=== PATIENT | male | born 1955 | race Caucasian/White ===

== ENCOUNTER 2018-07-30 19:49 | Emergency (ER) | payer SELFPAY ==
[~2018-07-30] VITALS: Ht 180.3 cm; Wt 77.1 kg
--- OUTSIDE RECORDS SUMMARY | 2018-07-30 19:52 | XMS REPORT | Continuity of Care Document ---
Author Author [facility] Organization Interface Address Unknown Phone Unavailable Problems Problem Status Onset Date Classification Date Reported Comments Source SWOLLEN LEGS Active 10/12/2017 [facility] BILATERAL LOWER LEG CELLULITIS, JG, HYP Active 10/12/2017 [facility] Sacral contusion 09/11/2017 09/14/2017 [place] [facility] Active 09/11/2017 [facility] Cellulitis of left lower limb 10/21/2017 [facility]pertension Resolved Problem [facility]21[facility] [facility] Kid[facility] stones Resolved Problem 10/21/[address] [facility] CELLULITIS OF LEFT LOWER LIMB Active [facility] ACUTE KIDNEY FAILURE, UNSPECIFIED Active [facility] HYPERGLYCEMIA, UNSPECIFIED Active [facility] Medications Medication Details Route Status Patient Instructions Ordering Provider Order Date Source Metronidazole 500 MG Oral Tablet [Flagyl] 500 mg=1 tab, PO, BID, X 10 day, # 20 tab, 0 Refill(s), Pharmacy: [id number] Active 10/18/2017 [facility] Ciprofloxacin 500 MG Oral Tablet [Cipro] 500 mg=1 tab, PO, Q24H, X 10 day, # 10 tab, 0 Refill(s), Pharmacy: [id number] Active 10/18/2017 [facility] Amlodipine 5 mg, 1 tab, Route: PO, Drug form: TAB, ONCE, Dosing Weight 84.091, kg, Priority: NOW, Start date: 10/18/17 14:40:00 CDT, Stop date: 10/18/17 14:40:00 CDTNotes: (Same as: Ama) Inactive 10/18/2017 [facility] Mupirocin 0.02 MG/MG Topical Ointment [Bactroban] 1 appl, Route: TOP, Daily, Drug form: OINT, Start date: 10/18/17 10:00:00 CDT, Duration: 30 day, Stop date: 11/17/17 9:00:00 CDT Inactive 10/18/2017 [facility] Flagyl 500 mg, 100 mL, Route: IVPB, Drug form: INJ, [id number], Dosing Weight 84.091, kg, Start date: 10/17/17 18:00:00 CDT, Duration: 10 day, Stop date: 10/27/17 10:00:00 CDT, ABX Indication: Skin/Soft Tissue Inf ectionNotes: (Same as: Flagyl) Avoid alcohol. No Longer Active 10/17/2017 [facility] Vancomycin 1,000 mg, Route: IVPB, [id number], Dosing Weight 84.091, kg, Start date: 10/17/17 16:00:00 CDT, Duration: 7 day, Stop date: 10/23/17 16:00:00 CDT, ABX Indication: Skin/Soft Tissue InfectionNotes: TIME C RITICAL MEDICATION (Same As: Vancocin) Infusion rate 2001 mg: infuse over 2.5 hours For adult patients only: Round to nearest 250 mg per Medical Staff approval MEDICATION WASTE Product Size: 1000 mg Product Wasted: ___ mg Inactive 10/17/2017 [facility] Vancomycin 1 ea, Route: MISC, ONCALL, Dosing Weight 84.091, kg, Start date: 10/17/17 13:00:00 CDT, Duration: 7 day, Stop date: 10/24/17 12:59:00 CDT, Pharmacy to dose, ABX Indication: Skin/Soft Tissue Infection Inactive 10/17/2017 [facility] Insulin Lispro 2 unit, 0.02 mL, Route: SUB-Q, Drug form: SOLN, TID-Before Meals, Dosing Weight 84.091, kg, PRN Blood Glucose Results, Start date: 10/17/17 12:20:00 CDT, Duration: 30 day, Stop date: 11/16/17 12:19:0 0 CDTNotes: (Same as: Humalog ) Roll in palms of hands gently; Do not shake `vigorously. "Single Patient Use Only " WASTE: F/P - Black; E - Municipal Trash Bin Stable for 28 days at room temperature. Expires in days from Date No Longer Active 10/17/2017 [facility] Glucagon 1 mg, Route: IM, PRN, Dosing Weight 84.091, kg, PRN Blood Glucose Results, Start date: 10/17/17 12:20:00 CDT, Duration: 30 day, Stop date: 11/16/17 12:19:00 CDT Inactive 10/17/2017 [facility] Dextrose 50% Syringe 25 mL, Route: IVP, Dosing Weight 84.091, kg, PRN, PRN Blood Glucose Results, Start date: 10/17/17 12:20:00 CDT, Duration: 30 day, Stop date: 11/16/17 12:19:00 CDT Inactive 10/17/2017 [facility] Docusate 100 mg, 1 cap, Route: PO, Drug form: CAP, BID, Dosing Weight 84.091, kg, Start date: 10/17/17 9:00:00 CDT, Duration: 30 day, Stop date: 11/15/17 17:00:00 CDTNotes: (Same as: Colace) (Do Not Crush) No Longer Active 10/17/2017 [facility] Losartan 100 mg, 2 tab, Route: PO, Drug form: TAB, Daily, Dosing Weight 84.091, kg, Start date: 10/17/17 9:00:00 CDT, Duration: 30 day, Stop date: 11/15/17 9:00:00 CDTNotes: (Same as: Cozaar) No Longer Active 10/17/2017 [facility] Amlodipine 10 mg, 2 tab, Route: PO, Drug form: TAB, Daily, Dosing Weight 84.091, kg, Start date: 10/17/17 9:00:00 CDT, Stop date: 11/15/17 9:00:00 CDTNotes: (Same as: Norvasc) No Longer Active 10/17/2017 [facility] normal saline 0.9% IV 1,000 mL 1,000 mL, Rate: 100 ml/hr, Infuse over: 10 hr, Route: IV, Dosing Weight 84.091 kg, Total Volume: 1,000, Start date: 10/17/17 8:13:00 CDT, Duration: 30 day, Stop date: 11/16/17 8:12:00 CDT, 2.06, m2 Inactive 10/17/2017 [facility] Insulin Lispro 1 unit, 0.01 mL, Route: SUB-Q, Drug form: SOLN, Bedtime, Dosing Weight 84.091, kg, PRN Blood Glucose Results, Start date: 10/16/17 23:21:00 CDT, Duration: 30 day, Stop date: 11/15/17 23:20:00 CDTNotes: (Same as: Humalog ) Roll in palms of hands gently; Do not shake `vigorously. "Single Patient Use Only " WASTE: F/P - Black; E - Municipal Trash Bin Stable for 28 days at room temperature. Expires in days from Date No Longer Active 10/17/2017 [facility] Glucagon 1 mg, Route: IM, Drug form: PDR/INJ, PRN, Dosing Weight 84.091, kg, PRN Blood Glucose Results, Start date: 10/16/17 23:21:00 CDT, Duration: 30 day, Stop date: 11/15/17 23:20:00 CDT No Longer Active 10/17/2017 [facility] Dextrose 50% Syringe 12.5 gm, 25 mL, Route: IVP, Drug Form: INJ, Dosing Weight 84.091, kg, PRN, PRN Blood Glucose Results, Start date: 10/16/17 23:21:00 CDT, Duration: 30 day, Stop date: 11/15/17 23:20:00 CDT No Longer Active 10/17/2017 [facility] Vancomycin 1,000 mg, Route: IVPB, Drug form: INJ, [id number], Dosing Weight 84.091, kg, Start date: 10/16/17 21:00:00 CDT, Duration: 7 day, Stop date: 10/23/17 9:00:00 CDT, ABX Indication: Skin/Soft Tissue Infection Inactive 10/17/2017 [facility] insulin glargine 40 unit, 0.4 mL, Route: SUB-Q, Drug form: SOLN, Bedtime, Start date: 10/16/17 21:00:00 CDT, Duration: 30 day, Stop date: 11/14/17 21:00:00 CDTNotes: (Same as: Lantus) Do not hold insulin without cont acting prescriber WASTE: F/P - Black; E - Municipal Trash Bin "single patient use only" No Longer Active 10/17/2017 [facility] cefepime 1 gm, Route: IVPB, [id number], Dosing Weight 84.091, kg, (CrCl 30 - 49 ml/min), Start date: 10/16/17 21:00:00 CDT, Duration: 7 day, Stop date: 10/23/17 12:30:00 CDT, ABX Indication: Skin/Soft Tissue Infect ionNotes: (Same As: Maxipime) MEDICATION WASTE Product Size: 1000 mg Product Wasted: ___ mg No Longer Active 10/17/2017 [facility] 1.5 ML Insulin Glargine 300 UNT/ML Prefilled Syringe [Toujeo] 50 unit, Route: SUB-Q, Drug form: SOLN, Bedtime, Dosing Weight 84.091, kg, Start date: 10/16/17 21:00:00 CDT, Duration: 30 day, Stop date: 11/14/17 21:00:00 CDT Inactive 10/17/2017 [facility] atorvastatin 40 mg, 1 tab, Route: PO, Drug form: TAB, Bedtime, Dosing Weight 84.091, kg, Start date: 10/16/17 21:00:00 CDT, Duration: 30 day, Stop date: 11/14/17 21:00:00 CDTNotes: (Same as: Lipitor) No Longer Active 10/17/2017 [facility] Aspirin 81 mg, 1 tab, Route: PO, Drug form: ECTAB, Daily, Dosing Weight 84.091, kg, Start date: 10/16/17 21:00:00 CDT, Duration: 30 day, Stop date: 11/15/17 9:00:00 CDTNotes: Do not crush or chew. (Same As: Ecotrin) No Longer Active 10/17/2017 [facility] Amitriptyline 25 mg, 1 tab, Route: PO, Drug form: TAB, Bedtime, Dosing Weight 84.091, kg, Start date: 10/16/17 21:00:00 CDT, Duration: 30 day, Stop date: 11/14/17 21:00:00 CDTNotes: (Same as: Elavil) No Longer Active 10/17/2017 [facility] Ondansetron 4 mg, 2 mL, Route: IVP, Drug form: INJ, Q6H, Dosing Weight 84.091, kg, PRN Nausea & Vomiting, Start date: 10/16/17 20:34:00 CDT, Duration: 30 day, Stop date: 11/15/17 20:33:00 CDTNotes: (Same as: Zofran) MEDICATION WASTE Product Size: 4 mg Product Wasted: ___ mg No Longer Active 10/17/2017 [facility] Morphine 2 mg, 0.5 mL, Route: IVP, Drug form: SOLN, Q4H, Dosing Weight 84.091, kg, PRN Pain Score 7-10, Start date: 10/16/17 20:34:00 CDT, Duration: 30 day, Stop date: 11/15/17 20:33:00 CDTNotes: (Same as:MORPhine Sulfate) No Longer Active 10/17/2017 [facility] Acetaminophen 650 mg, 2 tab, Route: PO, Drug form: TAB, Q4H, Dosing Weight 84.091, kg, PRN Pain 1-3/Temp > 100.4 F, Start date: 10/16/17 20:34:00 CDT, Duration: 30 day, Stop date: 11/15/17 20:33:00 CDTNotes: Do not exceed 4 gm/day. (Same as: Tylenol) No Longer Active 10/17/2017 [facility] Acetaminophen 325 MG / Hydrocodone Bitartrate 5 MG Oral Tablet 2 tab, Route: PO, Drug Form: TAB, Dosing Weight 84.091, kg, Q4H, PRN Pain Score 7-10, Start date: 10/16/17 20:34:00 CDT, Duration: 30 day, Stop date: 11/15/17 20:33:00 CDTNotes: (Same as: Marshall 325/5) Do not exceed 4gm/day of acetaminophen. No Longer Active 10/17/2017 [facility] 1.5 ML Insulin Glargine 300 UNT/ML Prefilled Syringe [Toujeo] 50 unit, SUB-Q, Bedtime, 0 Refill(s) Active 10/17/2017 [facility] Aspirin 81 mg, PO, Daily, 0 Refill(s) Active 10/17/2017 [facility] Losartan 100 mg, PO, Daily, 0 Refill(s) Active 10/17/2017 [facility] Amlodipine PO, Daily, 0 Refill(s) Active 10/17/2017 [facility] atorvastatin 40 mg, PO, Bedtime, 0 Refill(s) Active 10/17/2017 [facility] NS (Bolus) IV 1,000 mL, 1,000 ml/hr, Infuse Over: 1 hr, Route: IV, 1,000, Drug form: INJ, ONCE, Priority: STAT, Dosing Weight 79.545 kg, Start date: 10/16/17 12:19:00 CDT, Stop date: 10/16/17 12:19:00 CDT Inactive 10/16/[address] [facility] Zosyn 3.375 gm, Route: IVPB, ONCE, Dosing Weight 79.545, kg, Priority: STAT, Start date: 10/16/17 12:19:00 CDT, Stop date: 10/16/17 12:19:00 CDT, ABX Indication: Skin/Soft Tissue InfectionNotes: (Same as: Zosyn) Dosing based on Piperacillin component MEDICATION WASTE Product Size: 3375 mg Product Wasted: ___ mg Inactive 10/16/[address] [facility] Vancomycin 1,500 mg, Route: IVPB, ONCE, Dosing Weight 79.545, kg, Priority: STAT, Start date: 10/16/17 12:18:00 CDT, Stop date: 10/16/17 12:18:00 CDT, ABX Indication: Skin/Soft Tissue InfectionNotes: TIME CRITICAL MEDICATION (Same As: Vancocin) Infusion rate 2001 mg: infuse over 2.5 hours For adult patients only: Round to nearest 250 mg per Medical Staff approval MEDICATION WASTE Product Size: 1000 mg Product Wasted: ___ mg Inactive 10/16/[address] [facility] Clindamycin 600 mg, Route: IV, ONCE, Dosing Weight 79.545, kg, Priority: STAT, Start date: 10/16/17 10:28:00 CDT, Stop date: 10/16/17 10:28:00 CDT, ABX Indication: Skin/Soft Tissue Infection Inactive 10/16/[address] [facility] tramadol hydrochloride 50 MG Oral Tablet 50 mg=1 tab, PO, Q6H, PRN Pain, X 3 day, # 12 tab, 0 Refill(s) Active 09/12/[address] [facility] Acetaminophen 325 MG / Hydrocodone Bitartrate 5 MG Oral Tablet 1 tab, Route: PO, Drug Form: TAB, Dosing Weight 79.091, kg, ONCE, STAT, Start date: 09/11/17 20:17:00 CDT, Stop date: 09/11/17 20:17:00 CDTNotes: (Same as: Marshall 325/5) Do not exceed 4gm/day of acetaminophen. Inactive 09/12/[address] [facility] Allergies, Adverse Reactions, Alerts Substance Category Reaction Severity Reaction type Status Date Reported Comments Source Immunizations Immunization Date Given Site Status Last Updated Comments Source pneumococcal 23-valent vaccine 10/18/2017 Not Given [facility] pneumococcal 23-valent vaccine 07/20/2012 Left deltoid completed [facility] Results Order Name Results Value Reference Range Date Interpretation Comments Source IMMUNOLOGY C4 Complement 26 mg/dL 16 - 47 10/18/2017 [facility] C3 Complement 107 mg/dL 88 - 201 10/18/2017 [facility] P-ANCA Negative (10/18/17 10:53 AM) Negative 10/18/2017 [facility] C-ANCA Negative (10/18/17 10:53 AM) Negative 10/18/2017 [facility] SIVA Negative (10/18/17 10:53 AM) Negative 10/18/2017 [facility] Gram Stain Report No Wbc'S; Few Gram Positive Cocci In Clusters 10/18/2017 [facility] Culture: Wound/Abscess w/Gram Stain Few Gram Negative Rods Identification And Sensitivity Pending 10/18/2017 [facility] CHEM PANEL Bili Total 0.5 mg/dL 0.2 - 1.3 10/18/2017 [facility] CHEM PANEL eGFR 29 mL/min/1.73m2 10/18/2017 Result Comment: The eGFR is calculated using the CKD-EPI formula. In most young, healthy individuals the eGFR will be >90 mL/min/1.73m2. The eGFR declines with age. An eGFR of 60-89 may be normal in some populations, particularly the elderly, for whom the CKD-EPI formula has not been extensively validated. Use of the eGFR is not recommended in the following populations: Individuals with unstable creatinine concentrations, including patients and those with serious co-morbid conditions. Patients with extremes in muscle mass or diet. The data above are obtained from the National Kidney Disease Education Program (NKDEP) which additionally recommends that when the eGFR is used in patients with extremes of body mass index for purposes of drug dosing, the eGFR should be multiplied by the estimated BMI. [facility] CHEM PANEL Sodium Lvl 146 meq/L 135 - 145 10/18/2017 [facility] CHEM PANEL Creatinine Lvl 2.33 mg/dL 0.50 - 1.40 10/18/2017 [facility] CHEM PANEL Potassium Lvl 3.7 meq/L 3.5 - 5.1 10/18/2017 [facility] CHEM PANEL BUN 29 mg/dL 7 - 22 10/18/2017 [facility] CHEM PANEL Glucose Lvl 74 mg/dL 70 - 99 10/18/2017 [facility] CHEM PANEL Globulin 4.1 g/dL 2.7 - 4.2 10/18/2017 [facility] CHEM PANEL Albumin Lvl 1.9 g/dL 3.5 - 5.0 10/18/2017 [facility] CHEM PANEL B/C Ratio 12 6 - 25 10/18/2017 [facility] CHEM PANEL Total Protein 6.0 g/dL 6.4 - 8.4 10/18/2017 [facility] CHEM PANEL AGAP 10.7 meq/L 10.0 - 20.0 10/18/2017 [facility] CHEM PANEL Calcium Lvl 8.5 mg/dL 8.5 - 10.5 10/18/2017 [facility] CHEM PANEL Chloride Lvl 116 meq/L 95 - 109 10/18/2017 [facility] CHEM PANEL CO2 23 meq/L 24 - 32 10/18/2017 [facility] CHEM PANEL A/G Ratio 0.5 0.7 - 1.6 10/18/2017 [facility] CHEM PANEL AST 22 unit/L 0 - 37 10/18/2017 [facility] CHEM PANEL Alk Phos 98 unit/L 39 - 136 10/18/2017 [facility] CHEM PANEL ALT 22 unit/L 0 - 65 10/18/2017 [facility] HEMATOLOGY Eosinophils 2.6 % 0.0 - 4.0 10/18/2017 [facility] HEMATOLOGY Monocytes 6.8 % 2.0 - 12.0 10/18/2017 [facility] HEMATOLOGY Segs-Bands # 6.1 K/CMM 1.5 - 8.1 10/18/2017 [facility] HEMATOLOGY Basophils 1.5 % 0.0 - 1.0 10/18/2017 [facility] HEMATOLOGY Lymphocytes # 3.0 K/CMM 1.0 - 5.5 10/18/2017 [facility] HEMATOLOGY Monocytes # 0.7 K/CMM 0.0 - 0.8 10/18/2017 [facility] HEMATOLOGY Basophils # 0.2 K/CMM 0.0 - 0.2 10/18/2017 [facility] HEMATOLOGY Eosinophils # 0.3 K/CMM 0.0 - 0.5 10/18/2017 [facility] HEMATOLOGY Lymphocytes 29.0 % 20.0 - 40.0 10/18/2017 [facility] Segs 60.1 % 45.0 - 75.0 10/18/2017 [facility] RBC 3.98 M/CMM 4.70 - 6.10 10/18/2017 [facility] WBC 10.2 K/CMM 3.7 - 10.4 10/18/2017 [facility] Hct 32.6 % 42.0 - 54.0 10/18/2017 [facility] Hgb 11.1 g/dL 14.0 - 18.0 10/18/2017 [facility] MCV 81.9 fL 80.0 - 94.0 10/18/2017 [facility] MCHC 34.1 g/dL 32.0 - 36.0 10/18/2017 [facility] MCH 27.9 pg 27.0 - 31.0 10/18/2017 [facility] Platelet 273 K/CMM 133 - 450 10/18/2017 [facility] RDW 13.6 % 11.5 - 14.5 10/18/2017 [facility] MPV 7.4 fL 7.4 - 10.4 10/18/2017 [facility] IMMUNOLOGY C-REACTIVE PROTEIN 7.2 mg/L <=2.9 mg/L 10/17/2017 [facility] TOXICOLOGY Vanco Lvl 13.0 ug/ml 10/17/2017 [facility] URINE AND STOOL UA Sq Epi Occasional /LPF Few /LPF 10/17/2017 [facility] URINE AND STOOL UA RBC 3 /HPF 0 - 2 10/17/2017 [facility] URINE AND STOOL UA WBC 2 /HPF 0 - 5 10/17/2017 [facility] URINE AND STOOL UA Nitrite Negative (10/17/17 1:15 PM) Negative 10/17/2017 [facility] URINE AND STOOL UA Urobilinogen 0.2 EU/dL 0.1 - 1.0 10/17/2017 [facility] URINE AND STOOL UA Ketones Negative *NA* (10/17/17 1:15 PM) Negative 10/17/2017 [facility] URINE AND STOOL UA Glucose >=1000 mg/dL Negative mg/dL 10/17/2017 [facility] URINE AND STOOL UA Leuk Est Negative (10/17/17 1:15 PM) Negative 10/17/2017 [facility] URINE AND STOOL UA Bili Negative *NA* (10/17/17 1:15 PM) Negative 10/17/2017 [facility] URINE AND STOOL UA Blood Moderate *ABN* (10/17/17 1:15 PM) Negative 10/17/2017 [facility] URINE AND STOOL UA Spec Grav 1.020 <=1.030 10/17/2017 [facility] URINE AND STOOL UA pH 7.0 5.0 - 8.0 10/17/2017 [facility] URINE AND STOOL UA Protein >=300 mg/dL Negative mg/dL 10/17/2017 [facility] URINE AND STOOL UA Turbidity Clear (10/17/17 1:15 PM) Clear 10/17/2017 [facility] URINE AND STOOL UA Color Yellow *NA* (10/17/17 1:15 PM) Yellow 10/17/2017 [facility] URINE CHEM U Sodium 91 meq/L 10/17/2017 [facility] URINE CHEM U Creatinine 42.10 mg/dL 10/17/2017 [facility] URINE CHEM U Alb/Crea 9738.7 mcg/mg creat <=30.0 mcg/mg creat 10/17/2017 [facility] URINE CHEM U Microalb 4100.0 mg/L 10/17/2017 [facility] Ext Lower Arterial Doppler bilat US Ext Lower Arterial Doppler bilat US Patient Name: RENE PALMA : 1955; Age: 62 years y/o Male MR: [id number] Study: Ext Lower Arterial Doppler bilat US 10/17/2017 10:35 AM CDT Ordering Physician: Cj Rosas MD Clinical Indication: - ? arterial wound, ? PVD; Comparison: None Bilateral lower extremity arterial Doppler ultrasound exam. Color-flow and grayscale ultrasound images were obtained. RIGHT: There is normal triphasic waveform, flow velocity and color flow seen within the common femoral, SFA and popliteal segments in the right lower extremity. Normal flow velocities and triphasic waveforms are also noted within the right dorsalis pedis. Monophasic waveforms are seen in the right posterior tibial artery. LEFT: Normal triphasic waveforms and flow velocities and color flow seen within the common femoral and SFA segments. Slightly blunted monophasic waveforms are seen in the distal SFA and popliteal segments, however. Severely blunted monophasic waveforms are seen in the left posterior tibial artery. Monophasic waveforms with normal flow velocities seen in the left dorsalis pedis artery. IMPRESSION: No high-grade femoral or popliteal stenosis seen within either lower extremity. There is however suggestion of distal (tibial) vascular disease, most prominent within the left lower extremity. Noninvasive ankle brachial index and segmental pressures may yield additional physiologic data. CTA or MRA could be most specific regarding site and degree of stenosis, otherwise. SL: [id number] 10/17/2017 - - Read by: Malik Donato MD Dictated Date/time: 10/18/17 08:17 Electronically Signed by: Malik Donato MD 10/18/17 08:23 FINAL REPORT [facility] CHEM PANEL eGFR 27 mL/min/1.73m2 10/17/2017 Result Comment: The eGFR is calculated using the CKD-EPI formula. In most young, healthy individuals the eGFR will be >90 mL/min/1.73m2. The eGFR declines with age. An eGFR of 60-89 may be normal in some populations, particularly the elderly, for whom the CKD-EPI formula has not been extensively validated. Use of the eGFR is not recommended in the following populations: Individuals with unstable creatinine concentrations, including patients and those with serious co-morbid conditions. Patients with extremes in muscle mass or diet. The data above are obtained from the National Kidney Disease Education Program (NKDEP) which additionally recommends that when the eGFR is used in patients with extremes of body mass index for purposes of drug dosing, the eGFR should be multiplied by the estimated BMI. [facility] CHEM PANEL Bili Total 0.3 mg/dL 0.2 - 1.3 10/17/2017 [facility] CHEM PANEL Chloride Lvl 116 meq/L 95 - 109 10/17/2017 [facility] CHEM PANEL CO2 23 meq/L 24 - 32 10/17/2017 [facility] CHEM PANEL AGAP 12.2 meq/L 10.0 - 20.0 10/17/2017 [facility] CHEM PANEL Calcium Lvl 8.4 mg/dL 8.5 - 10.5 10/17/2017 [facility] CHEM PANEL B/C Ratio 14 6 - 25 10/17/2017 [facility] CHEM PANEL Globulin 4.0 g/dL 2.7 - 4.2 10/17/2017 [facility] CHEM PANEL Total Protein 6.0 g/dL 6.4 - 8.4 10/17/2017 [facility] CHEM PANEL Albumin Lvl 2.0 g/dL 3.5 - 5.0 10/17/2017 [facility] CHEM PANEL A/G Ratio 0.5 0.7 - 1.6 10/17/2017 [facility] CHEM PANEL ALT 22 unit/L 0 - 65 10/17/2017 [facility] CHEM PANEL AST 22 unit/L 0 - 37 10/17/2017 [facility] CHEM PANEL Alk Phos 99 unit/L 39 - 136 10/17/2017 [facility] CHEM PANEL Glucose Lvl 139 mg/dL 70 - 99 10/17/2017 [facility] CHEM PANEL Creatinine Lvl 2.50 mg/dL 0.50 - 1.40 10/17/2017 [facility] CHEM PANEL BUN 34 mg/dL 7 - 22 10/17/2017 [facility] CHEM PANEL Sodium Lvl 147 meq/L 135 - 145 10/17/2017 [facility] CHEM PANEL Potassium Lvl 4.2 meq/L 3.5 - 5.1 10/17/2017 [facility] HEMATOLOGY PT 14.2 s 12.0 - 14.7 10/17/2017 [facility] HEMATOLOGY PTT 31.7 s 22.9 - 35.8 10/17/2017 [facility] HEMATOLOGY INR 1.10 0.85 - 1.17 10/17/2017 [facility] HEMATOLOGY MCHC 34.0 g/dL 32.0 - 36.0 10/17/2017 [facility] HEMATOLOGY RDW 14.0 % 11.5 - 14.5 10/17/2017 [facility] HEMATOLOGY MCH 27.8 pg 27.0 - 31.0 10/17/2017 [facility] HEMATOLOGY MCV 81.6 fL 80.0 - 94.0 10/17/2017 [facility] HEMATOLOGY MPV 7.0 fL 7.4 - 10.4 10/17/2017 [facility] HEMATOLOGY Platelet 269 K/CMM 133 - 450 10/17/2017 [facility] HEMATOLOGY WBC 9.6 K/CMM 3.7 - 10.4 10/17/2017 [facility] RBC 3.76 M/CMM 4.70 - 6.10 10/17/2017 [facility] Hgb 10.4 g/dL 14.0 - 18.0 10/17/2017 [facility] Hct 30.7 % 42.0 - 54.0 10/17/2017 [facility] Segs 63.7 % 45.0 - 75.0 10/17/2017 [facility] Basophils 1.4 % 0.0 - 1.0 10/17/2017 [facility] Eosinophils 2.9 % 0.0 - 4.0 10/17/2017 [facility] Monocytes 8.0 % 2.0 - 12.0 10/17/2017 [facility] Lymphocytes 24.0 % 20.0 - 40.0 10/17/2017 [facility] Lymphocytes # 2.3 K/CMM 1.0 - 5.5 10/17/2017 [facility] [facility] Monocytes # 0.8 K/CMM 0.0 - 0.8 10/17/2017 [facility] Segs-Bands # 6.1 K/CMM 1.5 - 8.1 10/17/2017 [facility] Basophils # 0.1 K/CMM 0.0 - 0.2 10/17/2017 [facility] Eosinophils # 0.3 K/CMM 0.0 - 0.5 10/17/2017 [facility] SPECIAL CHEMISTRY Hgb A1C 8.7 % <=5.6 % 10/17/2017 [facility] Retroperitoneal Complete US Retroperitoneal Complete US Patient Name: RENE PALMA : 1955; Age: 62 years Male MR: [id number] Study: Retroperitoneal Complete US 10/17/2017 9:26 AM CDT Clinical Indication: Renal insufficiency - ckd3. Chronic renal insufficiency. COMPARISON: None TECHNIQUE: Multiple longitudinal and transverse real time sonographic images of the kidneys and urinary bladder are obtained. FINDINGS: KIDNEY: The right kidney measures 11.1 x 6.5 x 6.3 cm. The renal cortical thickness measures 1.8 cm. The left kidney measures 11.2 x 5.7 x 6.0 cm. The renal cortical thickness measures 1.9 cm. The kidneys are normal in size, shape, contour, and position. The corticomedullary differentiation is maintained. There is no hydronephrosis. There is no nephrolithiasis. There are no abnormal perinephric collections. BLADDER: Scanning through the pelvis reveals the bladder to be partially distended with anechoic urine. AORTA AND IVC: The visualized portions appear unremarkable. The proximal common iliac arteries are obscured by bowel gas. ASCITES: No ascites noted. IMPRESSION: Normal renal ultrasound. SL: [id number] 10/17/2017 - - Read by: Adam Castellano MD Dictated Date/time: 10/17/17 10:48 Electronically Signed by: Adam Castellano MD 10/17/17 10:50 FINAL REPORT [facility] Chest 2 views DX Chest 2 views DX Chest 2 views DX CLINICAL HISTORY: - abnormal breath sounds COMPARISON: none FINDINGS: SUPPORT DEVICES: none LUNGS: Lungs are reasonably well inflated. No consolidation or any significant effusion. No pneumothorax is evident. CARDIOVASCULAR: Cardiac silhouette size is normal. Pulmonary vasculature is within normal limits. MEDIASTINUM/CHIO: Trachea is midline. No contour abnormality is noted. OSSEOUS STRUCTURES: No acute bony abnormality is noted. SOFT TISSUES: No significant soft tissue abnormality is noted. Multiple EKG leads and other wires project over the patient's chest. IMPRESSION: No acute abnormality is noted. SL: [id number] 10/17/2017 - - Read by: Lev Rahman MD Dictated Date/time: 10/17/17 09:57 Electronically Signed by: Lev Rahman MD 10/17/17 09:59 FINAL REPORT [facility] Tib Fib wo contrast MRI Tib Fib wo contrast MRI MRI LEFT TIBIA-FIBULA WITHOUT CONTRAST HISTORY: Left leg wound and swelling, history of diabetes; - evaluate for cellulitis; COMPARISON: Left tibia-fibula radiography dated 10/16/2017 FINDINGS: Marked diffuse superficial soft tissue edema/inflammation throughout the leg which is nonspecific and may represent cellulitis or generalized edema. No definite discrete soft tissue wound is evident by MRI. Mild fatty atrophy of the left leg musculature. No myositis. No superficial or deep soft tissue abscess. No osteomyelitis. IMPRESSION: 1. Marked diffuse superficial soft tissue edema/inflammation which is nonspecific and may represent cellulitis or generalized edema. 2. No abscess, myositis, or osteomyelitis. SL: [id number] 10/17/2017 - - Read by: Loco Collier MD Dictated Date/time: 10/17/17 08:03 Electronically Signed by: Loco Collier MD 10/17/17 08:10 FINAL REPORT [facility] CHEM PANEL Lactic Acid Lvl 1.5 mMol/L 0.5 - 2.2 10/16/[address] [facility] CARDIAC ENZYMES proBNP 652 pg/mL 0 - 125 10/16/[address] [facility] CHEM PANEL Globulin 4.2 g/dL 2.7 - 4.2 10/16/[address] [facility] CHEM PANEL A/G Ratio 0.5 0.7 - 1.6 10/16/2017 [facility] B/C Ratio 14 6 - 25 10/16/[address] [facility] CHEM PANEL AGAP 15.1 meq/L 10.0 - 20.0 10/16/[address] [facility] CHEM PANEL eGFR 24 mL/min/1.73m2 10/16/2017 Result Comment: The eGFR is calculated using the CKD-EPI formula. In most young, healthy individuals the eGFR will be >90 mL/min/1.73m2. The eGFR declines with age. An eGFR of 60-89 may be normal in some populations, particularly the elderly, for whom the CKD-EPI formula has not been extensively validated. Use of the eGFR is not recommended in the following populations: Individuals with unstable creatinine concentrations, including patients and those with serious co-morbid conditions. Patients with extremes in muscle mass or diet. The data above are obtained from the National Kidney Disease Education Program (NKDEP) which additionally recommends that when the eGFR is used in patients with extremes of body mass index for purposes of drug dosing, the eGFR should be multiplied by the estimated BMI. [facility] PAN[facility] Potassium Lvl 4.1 meq/L 3.5 - 5.1 10/16/[address] [facility] CHEM PANEL Creatinine Lvl 2.78 mg/dL 0.50 - 1.40 10/16/2017 [facility] PAN[facility] Sodium Lvl 143 meq/L 135 - 145 10/16/2017 [facility] BUN 38 mg/dL 7 - 22 10/16/[address] [facility] CHEM PANEL Bili Total 0.3 mg/dL 0.2 - 1.3 10/16/[address] [facility] CHEM PANEL Alk Phos 110 unit/L 39 - 136 10/16/2017 [facility] AST 29 unit/L 0 - 37 10/16/[address] [facility] CHEM PANEL ALT 26 unit/L 0 - 65 10/16/2017 [facility] CHEM PANEL Calcium Lvl 8.4 mg/dL 8.5 - 10.5 10/16/[address] [facility] CHEM PANEL Total Protein 6.3 g/dL 6.4 - 8.4 10/16/[address] [facility] CHEM PANEL Albumin Lvl 2.1 g/dL 3.5 - 5.0 10/16/[address] [facility] CHEM PANEL Chloride Lvl 110 meq/L 95 - 109 10/16/[address] [facility] CHEM PANEL CO2 22 meq/L 24 - 32 10/16/[address] [facility] CHEM PANEL Glucose Lvl 239 mg/dL 70 - 99 10/16/[address] [facility] HEMATOLOGY RDW 14.0 % 11.5 - 14.5 10/16/[address] [facility] HEMATOLOGY Hct 31.8 % 42.0 - 54.0 10/16/[address] [facility] HEMATOLOGY MCV 81.2 fL 80.0 - 94.0 10/16/[address] [facility] HEMATOLOGY MCHC 34.7 g/dL 32.0 - 36.0 10/16/2017 [facility] MCH 28.2 pg 27.0 - 31.0 10/16/[address] [facility] HEMATOLOGY RBC 3.92 M/CMM 4.70 - 6.10 10/16/[address] [facility] HEMATOLOGY Hgb 11.1 g/dL 14.0 - 18.0 10/16/[address] [facility] HEMATOLOGY Platelet 299 K/CMM 133 - 450 10/16/[address] [facility] HEMATOLOGY MPV 7.4 fL 7.4 - 10.4 10/16/2017 [facility] WBC 11.3 K/CMM 3.7 - 10.4 10/16/[address] [facility] HEMATOLOGY Segs-Bands # 7.7 K/CMM 1.5 - 8.1 10/16/2017 [facility] Lymphocytes # 2.5 K/CMM 1.0 - 5.5 10/16/[address] [facility] HEMATOLOGY Eosinophils 1.5 % 0.0 - 4.0 10/16/2017 [facility] Monocytes 6.0 % 2.0 - 12.0 10/16/[address] [facility] HEMATOLOGY Basophils 1.1 % 0.0 - 1.0 10/16/2017 [facility] Monocytes # 0.7 K/CMM 0.0 - 0.8 10/16/[address] [facility] HEMATOLOGY Basophils # 0.1 K/CMM 0.0 - 0.2 10/16/[address] [facility] HEMATOLOGY Eosinophils # 0.2 K/CMM 0.0 - 0.5 10/16/[address] [facility] HEMATOLOGY Lymphocytes 22.6 % 20.0 - 40.0 10/16/[address] [facility] HEMATOLOGY Segs 68.8 % 45.0 - 75.0 10/16/[address] [facility] Tibia fibula series DX Tibia fibula series DX Clinical Indication: - redness and swelling; Comparison: None FINDINGS: AP and lateral radiographs of the left tibia and fibula were obtained. No fracture or dislocation is seen. The visualized knee and ankle joints are unremarkable. There is no soft tissue swelling or radiopaque foreign body. IMPRESSION: 1. No acute fracture or dislocation of the left tibia or fibula. SL: [id number] 10/16/2017 - - Read by: Edward Shirley MD Dictated Date/time: 10/16/17 10:50 Electronically Signed by: Edward Shirley MD 10/16/17 10:51 FINAL REPORT [facility] Spine lumbar 2 or 3 views DX Spine lumbar 2 or 3 views DX Clinical Indication: - back pain after fall yesterday. Comparison: None. Technique: Frontal and lateral views of the lumbar spine. Findings: There are 5 lumbar type vertebral bodies. No fracture or dislocation. The vertebral bodies maintain their height and alignment throughout the lumbar spine. Mild narrowing of the L3-L4 disc space. Mild anterolateral spurring. Minimal curvature of the lumbar spine convex to the left. Vascular calcifications. IMPRESSION: Mild degenerative disc disease at L3-L4. Mild curvature of the lumbar spine convex to the left may be positional. SL: [id number] 09/11/2017 - - Read by: Francisco Rajan MD Dictated Date/time: 09/11/17 21:06 Electronically Signed by: Francisco Rajan MD 09/11/17 21:07 FINAL REPORT [facility] Vital Signs Vital Sign Value Date Comments Source Systolic (mm Hg) 147 10/18/2017 [facility] Diastolic (mm Hg) 78 10/18/2017 [facility] Respitory Rate 18 10/18/2017 [facility] Heart Rate 94 10/18/2017 [facility] Temperature Oral (F) 98.7 F 10/18/2017 [facility] Temperature Oral (F) 98.8 F 10/18/2017 [facility] Heart Rate 89 10/18/2017 [facility] Systolic (mm Hg) 162 10/18/2017 [facility] Diastolic (mm Hg) 84 10/18/2017 [facility] Respitory Rate 16 10/18/2017 [facility] Systolic (mm Hg) 167 10/18/2017 [facility] Diastolic (mm Hg) 85 10/18/2017 [facility] Temperature Oral (F) 98.9 F 10/18/2017 [facility] Respitory Rate 16 10/18/2017 [facility] Heart Rate 92 10/18/2017 [facility] BMI Calculated 25.86 10/17/2017 [facility] Weight 84.091 10/17/2017 [facility] Height 180.34 cm 10/17/2017 [facility] Heart Rate 90 10/16/[address] [facility] Respitory Rate 16 10/16/[address] [facility] Systolic (mm Hg) 156 10/16/[address] [facility] Diastolic (mm Hg) 80 10/16/[address] [facility] Heart Rate 86 10/16/[address] [facility] Systolic (mm Hg) 127 10/16/[address] [facility] Diastolic (mm Hg) 88 10/16/[address] [facility] Respitory Rate 16 10/16/[address] [facility] Temperature Oral (F) 98.6 F 10/16/[address] [facility] Heart Rate 88 10/16/[address] [facility] Systolic (mm Hg) 144 10/16/[address] [facility] Diastolic (mm Hg) 70 10/16/[address] [facility] Respitory Rate 16 10/16/[address] [facility] Weight 79.545 10/16/[address] [facility] Temperature Oral (F) 98.8 F 10/16/[address] [facility] Temperature Oral (F) 98.9 F 09/12/[address] [facility] Systolic (mm Hg) 134 09/12/[address] [facility] Diastolic (mm Hg) 84 09/12/[address] [facility] Respitory Rate 18 09/12/[address] [facility] Heart Rate 89 09/12/[address] [facility] Weight 78.182 09/12/[address] [facility] Systolic (mm Hg) 152 09/12/[address] [facility] Diastolic (mm Hg) 94 09/12/[address] [facility] Height 180.34 cm 09/12/[address] [facility] BMI Calculated 24.04 09/12/[address] [facility] Respitory Rate 18 09/12/[address] [facility] Heart Rate 104 09/12/[address] [facility] Temperature Oral (F) 99.2 F 09/12/[address] [facility] Encounters Location Location Details Encounter Type Encounter Number Reason For Visit Attending Provider ADM Date DC Date Status Source [facility] Emergency [id number] Donovan Farah Jr 09/12/2017 09/12/2017 [facility] Emergency [id number] Nehemias Duran 10/16/2017 10/16/2017 [facility] Inpatient [id number] Cj Rosas 10/16/2017 10/18/2017 [facility] Procedures Procedure Code Date Perfomer Comments Source
--- OUTSIDE RECORDS SUMMARY | 2018-07-30 19:52 | XMS REPORT | Summary of Care ---
Author Author [facility] Organization [facility] Address Unknown Phone Unavailable Encounter BOAZ Mancia(FIN) [id number] Date(s): 09/11/17 - 09/11/17 [facility] [address] [place] [address]- [facility] [phone] Encounter Diagnosis Sacral contusion (Discharge Diagnosis) - 09/11/17 Discharge Disposition: Home or Self Care Attending Physician: Donovan Glynn MD Vital Signs Most recent to 1 2 oldest [Reference Range]: Height 180.34 cm (09/11/17 8:13 PM) Temperature Oral 98.9 DegF 99.2 DegF [96.4-99.1 DegF] (09/11/17 9:45 PM) *HI* (09/11/17 8:13 PM) Blood Pressure 134/84 mmHg 152/94 mmHg [90-140/60-90 mmHg] (09/11/17 9:45 PM) *HI* (09/11/17 8:13 PM) Respiratory Rate 18 BRMIN 18 BRMIN [14-20 BRMIN] (09/11/17 9:45 PM) (09/11/17 8:13 PM) Peripheral Pulse 89 bpm 104 bpm Rate [60-100 bpm] (09/11/17 9:45 PM) *HI* (09/11/17 8:13 PM) Weight 78.182 kg (09/11/17 8:13 PM) Body Mass Index 24.04 m2 (09/11/17 8:13 PM) Problem List Condition Effective Dates Status Health Status Informant Hypertension(Confirm Resolved ed) Kidney Resolved stones(Confirmed) Allergies, Adverse Reactions, Alerts Substance Reaction Severity Status NKDA Active Medications acetaminophen-hydrocodone 325 mg-5 mg oral tablet 1 tab, Route: PO, Drug Form: TAB, Dosing Weight 79.091, kg, ONCE, STAT, Start da te: 09/11/17 20:17:00 CDT, Stop date: 09/11/17 20:17:00 CDT Notes: (Same as: [place] 325/5) Do not exceed 4gm/day of acetaminophen. Start Date: 09/11/17 Stop Date: 09/11/17 Status: Completed tramadol 50 mg oral tablet 50 mg=1 tab, PO, Q6H, PRN Pain, X 3 day, # 12 tab, 0 Refill(s) Start Date: 09/11/17 Stop Date: 09/14/17 Status: Ordered Results No data available for this section Immunizations Given and Recorded Vaccine Date Status Refusal Reason pneumococcal 23-valent vaccine 07/20/12 Given Procedures No data available for this section Social History Social History Type Response Smoking Status Unknown if ever smoked; Exposure to Tobacco Smoke None; Cigarette Smoking Last 365 Days Unable to obtain; Reg Smoking Cessation Counseling Yes entered on: 09/11/17 Assessment and Plan No data available for this section
--- OUTSIDE RECORDS SUMMARY | 2018-07-30 19:52 | XMS REPORT | Summary of Care ---
Author Author [facility] Organization [facility] Address Unknown Phone Unavailable Encounter BOAZ Mancia(CONNOR) [id number] Date(s): 10/16/17 - 10/16/17 [facility] [address] [place] [address]- [facility] [phone] Discharge Disposition: Acute Care Attending Physician: Nehemias Duran MD Admitting Physician: Merlene Tolbert MD Vital Signs 1 2 3 Most recent to oldest [Reference Range]: 98.6 DegF (10/16/17 4:46 PM) 98.8 DegF (10/16/17 10:21 AM) Temperature Oral [96.4-99.1 DegF] 156/80 mmHg *HI* (10/16/17 5:31 PM) 127/88 mmHg (10/16/17 4:46 PM) 144/70 mmHg *HI* (10/16/17 2:07 PM) Blood Pressure [90-140/60-90 mmHg] 16 BRMIN (10/16/17 5:31 PM) 16 BRMIN (10/16/17 4:46 PM) 16 BRMIN (10/16/17 2:07 PM) Respiratory Rate [14-20 BRMIN] 90 bpm (10/16/17 5:31 PM) 86 bpm (10/16/17 4:46 PM) 88 bpm (10/16/17 2:07 PM) Peripheral Pulse Rate [60-100 bpm] 79.545 kg (10/16/17 10:21 AM) Weight Problem List Condition Effective Dates Status Health Status Informant Hypertension(Confirm Resolved ed) Kidney Resolved stones(Confirmed) Allergies, Adverse Reactions, Alerts Substance Reaction Severity Status NKDA Active Medications clindamycin 600 mg, Route: IV, ONCE, Dosing Weight 79.545, kg, Priority: STAT, Start date: 0 10/16/17 10:28:00 CDT, Stop date: 10/16/17 10:28:00 CDT, ABX Indication: Skin/Sof t Tissue Infection Start Date: 10/16/17 Stop Date: 10/16/17 Status: Completed NS (Bolus) IV 1,000 mL, 1,000 ml/hr, Infuse Over: 1 hr, Route: IV, 1,000, Drug form: INJ, ONCE , Priority: STAT, Dosing Weight 79.545 kg, Start date: 10/16/17 12:19:00 CDT, St op date: 10/16/17 12:19:00 CDT Start Date: 10/16/17 Stop Date: 10/16/17 Status: Completed vancomycin + Sodium Chloride 0.9% IV 250 mL 1,500 mg, Route: IVPB, ONCE, Dosing Weight 79.545, kg, Priority: STAT, Start ad e: 10/16/17 12:18:00 CDT, Stop date: 10/16/17 12:18:00 CDT, ABX Indication: Skin /Soft Tissue Infection Notes: TIME CRITICAL MEDICATION(Same As: Vancocin)Infusion rate< 1000 mg: infuse over 1 [id number] - 1500 mg: infuse over 1.5 [id number] - 2000 mg: infuse over 2 hours> 2001 mg: infuse over 2.5 hoursFor adult patients only: Round to nearest 250 mg per Medical Staff approval MEDICATION WASTE Product Size: 1000 mgProduct Wasted: ___ mg Start Date: 10/16/17 Stop Date: 10/16/17 Status: Completed Zosyn + Sodium Chloride 0.9% IV 100 mL 3.375 gm, Route: IVPB, ONCE, Dosing Weight 79.545, kg, Priority: STAT, Start ad e: 10/16/17 12:19:00 CDT, Stop date: 10/16/17 12:19:00 CDT, ABX Indication: Skin /Soft Tissue Infection Notes: (Same as: Zosyn)Dosing based on Piperacillin component MEDICATION WA LIZANDRO Product Size: 3375 mgProduct Wasted: ___ mg Start Date: 10/16/17 Stop Date: 10/16/17 Status: Completed Results ELECTROLYTES Most recent to 1 oldest [Reference Range]: Sodium Lvl [135-145 143 mEq/L mEq/L] (10/16/17 10:52 AM) Potassium Lvl 4.1 mEq/L [3.5-5.1 mEq/L] (10/16/17 10:52 AM) Chloride Lvl [95-109 110 mEq/L mEq/L] *HI* (10/16/17 10:52 AM) CO2 [24-32 mEq/L] 22 mEq/L *LOW* (10/16/17 10:52 AM) AGAP [10.0-20.0 15.1 mEq/L mEq/L] (10/16/17 10:52 AM) CHEM PANEL Most recent to 1 oldest [Reference Range]: Creatinine Lvl 2.78 mg/dL [0.50-1.40 mg/dL] *HI* (10/16/17 10:52 AM) eGFR 24 mL/min/1.73m2 1 *NA* (10/16/17 10:52 AM) BUN [7-22 mg/dL] 38 mg/dL *HI* (10/16/17 10:52 AM) B/C Ratio [6-25] 14 (10/16/17 10:52 AM) Glucose Lvl [70-99 239 mg/dL mg/dL] *HI* (10/16/17 10:52 AM) Total Protein 6.3 g/dL [6.4-8.4 g/dL] *LOW* (10/16/17 10:52 AM) Albumin Lvl [3.5-5.0 2.1 g/dL g/dL] *LOW* (10/16/17 10:52 AM) Globulin [2.7-4.2 4.2 g/dL g/dL] (10/16/17 10:52 AM) A/G Ratio [0.7-1.6] 0.5 *LOW* (10/16/17 10:52 AM) Calcium Lvl 8.4 mg/dL [8.5-10.5 mg/dL] *LOW* (10/16/17 10:52 AM) ALT [0-65 unit/L] 26 unit/L (10/16/17 10:52 AM) AST [0-37 unit/L] 29 unit/L (10/16/17 10:52 AM) Alk Phos [39-136 110 unit/L unit/L] (10/16/17 10:52 AM) Bili Total [0.2-1.3 0.3 mg/dL mg/dL] (10/16/17 10:52 AM) Lactic Acid Lvl 1.5 mMol/L [0.5-2.2 mMol/L] (10/16/17 1:04 PM) 1Result Comment: The eGFR is calculated using the [...] from the National Kidney Disease Education Program ( NKDEP) which additionally recommends that when the eGFR is used in patients with extremes of body mass index for purposes of drug dosing, the eGFR should be mul tiplied by the estimated BMI. CARDIAC ENZYMES Most recent to 1 oldest [Reference Range]: proBNP [0-125 pg/mL] 652 pg/mL *HI* (10/16/17 10:52 AM) HEMATOLOGY Most recent to 1 oldest [Reference Range]: WBC [3.7-10.4 K/CMM] 11.3 K/CMM *HI* (10/16/17 10:52 AM) RBC [4.70-6.10 3.92 M/CMM M/CMM] *LOW* (10/16/17 10:52 AM) Hgb [14.0-18.0 g/dL] 11.1 g/dL *LOW* (10/16/17 10:52 AM) Hct [42.0-54.0 %] 31.8 % *LOW* (10/16/17 10:52 AM) MCV [80.0-94.0 fL] 81.2 fL (10/16/17 10:52 AM) MCH [27.0-31.0 pg] 28.2 pg (10/16/17 10:52 AM) MCHC [32.0-36.0 34.7 g/dL g/dL] (10/16/17 10:52 AM) RDW [11.5-14.5 %] 14.0 % (10/16/17 10:52 AM) MPV [7.4-10.4 fL] 7.4 fL (10/16/17 10:52 AM) Platelet [133-450 299 K/CMM K/CMM] (10/16/17 10:52 AM) Segs [45.0-75.0 %] 68.8 % (10/16/17 10:52 AM) Lymphocytes 22.6 % [20.0-40.0 %] (10/16/17 10:52 AM) Monocytes [2.0-12.0 6.0 % %] (10/16/17 10:52 AM) Eosinophils [0.0-4.0 1.5 % %] (10/16/17 10:52 AM) Basophils [0.0-1.0 1.1 % %] *HI* (10/16/17 10:52 AM) Segs-Bands # 7.7 K/CMM [1.5-8.1 K/CMM] (10/16/17 10:52 AM) Lymphocytes # 2.5 K/CMM [1.0-5.5 K/CMM] (10/16/17 10:52 AM) Monocytes # [0.0-0.8 0.7 K/CMM K/CMM] (10/16/17 10:52 AM) Eosinophils # 0.2 K/CMM [0.0-0.5 K/CMM] (10/16/17 10:52 AM) Basophils # [0.0-0.2 0.1 K/CMM K/CMM] (10/16/17 10:52 AM) Immunizations Given and Recorded Vaccine Date Status Refusal Reason pneumococcal 23-valent vaccine 07/20/12 Given Not Given Vaccine Date Status Refusal Reason pneumococcal 23-valent vaccine 10/18/17 Not Given Patient Refuses Procedures No data available for this section Social History Social History Type Response Substance Abuse Use: None. Alcohol Never Smoking Status Current every day smoker; Type: Cigarettes; Exposure to Tobacco Smoke None; Cigarette Smoking Last 365 Days No; Reg Smoking Cessation Counseling No; Tobacco use per day: 12; entered on: 10/16/17 Assessment and Plan No data available for this section
--- OUTSIDE RECORDS SUMMARY | 2018-07-30 19:53 | XMS REPORT | Summary of Care ---
Author Author [facility] Organization [facility] Address Unknown Phone Unavailable Encounter BOAZ Mancia(CONNOR) [id number] Date(s): 10/16/17 - 10/18/17 [facility] [address] [place] [address]- Encounter Diagnosis Cellulitis of left lower limb (Final) - Discharge Disposition: Home or Self Care Attending Physician: Fariba Rhodes MD Admitting Physician: Fariba Rhodes MD Referring Physician: Cj Rosas MD Vital Signs 1 2 3 Most recent to oldest [Reference Range]: 180.34 cm (10/16/17 8:21 PM) Height 82.727 kg (10/18/17 4:38 AM) 82.864 kg (10/17/17 6:57 AM) Current Weight 98.7 DegF (10/18/17 3:18 PM) 98.8 DegF (10/18/17 11:16 AM) 98.9 DegF (10/18/17 7:46 AM) Temperature Oral [96.4-99.1 DegF] 147/78 mmHg *HI* (10/18/17 3:18 PM) 162/84 mmHg *HI* (10/18/17 11:16 AM) 167/85 mmHg *HI* (10/18/17 7:46 AM) Blood Pressure [90-140/60-90 mmHg] 18 BRMIN (10/18/17 3:18 PM) 16 BRMIN (10/18/17 11:16 AM) 16 BRMIN (10/18/17 7:46 AM) Respiratory Rate [14-20 BRMIN] 94 bpm (10/18/17 3:18 PM) 89 bpm (10/18/17 11:16 AM) 92 bpm (10/18/17 7:46 AM) Peripheral Pulse Rate [60-100 bpm] 84.091 kg (10/16/17 8:21 PM) Weight 25.86 m2 (10/16/17 8:21 PM) Body Mass Index Problem List Condition Effective Dates Status Health Status Informant Hypertension(Confirm Resolved ed) Kidney Resolved stones(Confirmed) Allergies, Adverse Reactions, Alerts Substance Reaction Severity Status NKDA Active Medications acetaminophen 650 mg, 2 tab, Route: PO, Drug form: TAB, Q4H, Dosing Weight 84.091, kg, PRN Brynn n 1-3/Temp > 100.4 F, Start date: 10/16/17 20:34:00 CDT, Duration: 30 day, Stop date: 11/15/17 20:33:00 CDT Notes: Do not exceed 4 gm/day. (Same as: Tylenol) Start Date: 10/16/17 Stop Date: 10/18/17 Status: Discontinued acetaminophen-hydrocodone 325 mg-5 mg oral tablet 2 tab, Route: PO, Drug Form: TAB, Dosing Weight 84.091, kg, Q4H, PRN Pain Score 7-10, Start date: 10/16/17 20:34:00 CDT, Duration: 30 day, Stop date: 11/15/17 2 0:33:00 CDT Notes: (Same as: [place] 325/5) Do not exceed 4gm/day of acetaminophen. Start Date: 10/16/17 Stop Date: 10/18/17 Status: Discontinued amitriptyline 25 mg, 1 tab, Route: PO, Drug form: TAB, Bedtime, Dosing Weight 84.091, kg, Star t date: 10/16/17 21:00:00 CDT, Duration: 30 day, Stop date: 11/14/17 21:00:00 CD T Notes: (Same as: Elavil) Start Date: 10/16/17 Stop Date: 10/18/17 Status: Discontinued amLODIPine PO, Daily, 0 Refill(s) Start Date: 10/16/17 Status: Ordered amLODIPine 5 mg, 1 tab, Route: PO, Drug form: TAB, ONCE, Dosing Weight 84.091, kg, Priority : NOW, Start date: 10/18/17 14:40:00 CDT, Stop date: 10/18/17 14:40:00 CDT Notes: (Same as: Norvasc) Start Date: 10/18/17 Stop Date: 10/18/17 Status: Completed amLODIPine 10 mg, 2 tab, Route: PO, Drug form: TAB, Daily, Dosing Weight 84.091, kg, Start date: 10/17/17 9:00:00 CDT, Stop date: 11/15/17 9:00:00 CDT Notes: (Same as: Norvasc) Start Date: 10/17/17 Stop Date: 10/18/17 Status: Discontinued aspirin 81 mg, PO, Daily, 0 Refill(s) Start Date: 10/16/17 Status: Ordered aspirin 81 mg, 1 tab, Route: PO, Drug form: ECTAB, Daily, Dosing Weight 84.091, kg, Star t date: 10/16/17 21:00:00 CDT, Duration: 30 day, Stop date: 11/15/17 9:00:00 CDT Notes: Do not crush or chew.(Same As: Ecotrin) Start Date: 10/16/17 Stop Date: 10/18/17 Status: Discontinued atorvastatin 40 mg, PO, Bedtime, 0 Refill(s) Start Date: 10/16/17 Status: Ordered atorvastatin 40 mg, 1 tab, Route: PO, Drug form: TAB, Bedtime, Dosing Weight 84.091, kg, Star t date: 10/16/17 21:00:00 CDT, Duration: 30 day, Stop date: 11/14/17 21:00:00 CD T Notes: (Same as: Lipitor) Start Date: 10/16/17 Stop Date: 10/18/17 Status: Discontinued Bactroban 2% topical ointment 1 appl, Route: TOP, Daily, Drug form: OINT, Start date: 10/18/17 10:00:00 CDT, D uration: 30 day, Stop date: 11/17/17 9:00:00 CDT Start Date: 10/18/17 Stop Date: 10/18/17 Status: Discontinued cefepime + Sodium Chloride 0.9% IV 100 mL 1 gm, Route: IVPB, [id number], Dosing Weight 84.091, kg, (CrCl 30 - 49 ml/min), Sta rt date: 10/16/17 21:00:00 CDT, Duration: 7 day, Stop date: 10/23/17 12:30:00 CD T, ABX Indication: Skin/Soft Tissue Infection Notes: (Same As: Maxipime) MEDICATION WASTE Product Size: 1000 mgProduc t Wasted: ___ mg Start Date: 10/16/17 Stop Date: 10/18/17 Status: Discontinued Cipro 500 mg oral tablet 500 mg=1 tab, PO, Q24H, X 10 day, # 10 tab, 0 Refill(s), Pharmacy: [id number] Start Date: 10/18/17 Stop Date: 10/28/17 Status: Ordered Dextrose 50% Syringe 25 mL, Route: IVP, Dosing Weight 84.091, kg, PRN, PRN Blood Glucose Results, Sta rt date: 10/17/17 12:20:00 CDT, Duration: 30 day, Stop date: 11/16/17 12:19:00 C DT Start Date: 10/17/17 Stop Date: 10/17/17 Status: Discontinued Dextrose 50% Syringe 50 mL, Route: IVP, Dosing Weight 84.091, kg, PRN, PRN Blood Glucose Results, Sta rt date: 10/17/17 12:20:00 CDT, Duration: 30 day, Stop date: 11/16/17 12:19:00 C DT Start Date: 10/17/17 Stop Date: 10/17/17 Status: Discontinued Dextrose 50% Syringe 12.5 gm, 25 mL, Route: IVP, Drug Form: INJ, Dosing Weight 84.091, kg, PRN, PRN B lood Glucose Results, Start date: 10/16/17 23:21:00 CDT, Duration: 30 day, Stop date: 11/15/17 23:20:00 CDT Start Date: 10/16/17 Stop Date: 10/18/17 Status: Discontinued Dextrose 50% Syringe 25 gm, 50 mL, Route: IVP, Drug Form: INJ, Dosing Weight 84.091, kg, PRN, PRN Blo od Glucose Results, Start date: 10/16/17 23:21:00 CDT, Duration: 30 day, Stop da te: 11/15/17 23:20:00 CDT Start Date: 10/16/17 Stop Date: 10/18/17 Status: Discontinued docusate 100 mg, 1 cap, Route: PO, Drug form: CAP, BID, Dosing Weight 84.091, kg, Start d ate: 10/17/17 9:00:00 CDT, Duration: 30 day, Stop date: 11/15/17 17:00:00 CDT Notes: (Same as: Colace) (Do Not Crush) Start Date: 10/17/17 Stop Date: 10/18/17 Status: Discontinued Flagyl 500 mg, 100 mL, Route: IVPB, Drug form: INJ, [id number], Dosing Weight 84.091, kg, S tart date: 10/17/17 18:00:00 CDT, Duration: 10 day, Stop date: 10/27/17 10:00:00 CDT, ABX Indication: Skin/Soft Tissue Infection Notes: (Same as: Flagyl) Avoid alcohol. Start Date: 10/17/17 Stop Date: 10/18/17 Status: Discontinued Flagyl 500 mg oral tablet 500 mg=1 tab, PO, BID, X 10 day, # 20 tab, 0 Refill(s), Pharmacy: [id number] Start Date: 10/18/17 Stop Date: 10/28/17 Status: Ordered glucagon 1 mg, Route: IM, PRN, Dosing Weight 84.091, kg, PRN Blood Glucose Results, Start date: 10/17/17 12:20:00 CDT, Duration: 30 day, Stop date: 11/16/17 12:19:00 CDT Start Date: 10/17/17 Stop Date: 10/17/17 Status: Discontinued glucagon 1 mg, Route: IM, Drug form: PDR/INJ, PRN, Dosing Weight 84.091, kg, PRN Blood Gl ucose Results, Start date: 10/16/17 23:21:00 CDT, Duration: 30 day, Stop date: 0 11/15/17 23:20:00 CDT Start Date: 10/16/17 Stop Date: 10/18/17 Status: Discontinued insulin glargine 40 unit, 0.4 mL, Route: SUB-Q, Drug form: SOLN, Bedtime, Start date: 10/16/17 21 :00:00 CDT, Duration: 30 day, Stop date: 11/14/17 21:00:00 CDT Notes: (Same as: Lantus)Do not hold insulin without contacting prescriberWASTE: F/P - Black; E - [facility] "single patient use only" Start Date: 10/16/17 Stop Date: 10/18/17 Status: Discontinued insulin lispro 2 unit, 0.02 mL, Route: SUB-Q, Drug form: SOLN, TID-Before Meals, Dosing Weight 84.091, kg, PRN Blood Glucose Results, Start date: 10/17/17 12:20:00 CDT, Durati on: 30 day, Stop date: 11/16/17 12:19:00 CDT Notes: (Same as: Humalog ) Roll in palms of hands gently; Do not shake `vigorou sly. "Single Patient Use Only " WASTE: F/P - Black; E - [facility] [address] St able for 28 days at room temperature.Expires in days from Da te Start Date: 10/17/17 Stop Date: 10/18/17 Status: Discontinued insulin lispro 3 unit, 0.03 mL, Route: SUB-Q, Drug form: SOLN, TID-Before Meals, Dosing Weight 84.091, kg, PRN Blood Glucose Results, Start date: 10/17/17 12:20:00 CDT, Durati on: 30 day, Stop date: 11/16/17 12:19:00 CDT Notes: (Same as: Humalog ) Roll in palms of hands gently; Do not shake `vigorou sly. "Single Patient Use Only " WASTE: F/P - Black; E - [facility] [address] [facility] [address] able for 28 days at room temperature.Expires in days from Da te Start Date: 10/17/17 Stop Date: 10/18/17 Status: Discontinued insulin lispro 4 unit, 0.04 mL, Route: SUB-Q, Drug form: SOLN, TID-Before Meals, Dosing Weight 84.091, kg, PRN Blood Glucose Results, Start date: 10/17/17 12:20:00 CDT, Durati on: 30 day, Stop date: 11/16/17 12:19:00 CDT Notes: (Same as: Humalog ) Roll in palms of hands gently; Do not shake `vigorou sly. "Single Patient Use Only " WASTE: F/P - Black; E - [facility] [address] [facility] [address] able for 28 days at room temperature.Expires in days from Da te Start Date: 10/17/17 Stop Date: 10/18/17 Status: Discontinued insulin lispro 5 unit, 0.05 mL, Route: SUB-Q, Drug form: SOLN, TID-Before Meals, Dosing Weight 84.091, kg, PRN Blood Glucose Results, Start date: 10/17/17 12:20:00 CDT, Durati on: 30 day, Stop date: 11/16/17 12:19:00 CDT Notes: (Same as: Humalog ) Roll in palms of hands gently; Do not shake `vigorou sly. "Single Patient Use Only " WASTE: F/P - Black; E - [facility] [address] able for 28 days at room temperature.Expires in days from Da te Start Date: 10/17/17 Stop Date: 10/18/17 Status: Discontinued insulin lispro 1 unit, 0.01 mL, Route: SUB-Q, Drug form: SOLN, TID-Before Meals, Dosing Weight 84.091, kg, PRN Blood Glucose Results, Start date: 10/17/17 12:20:00 CDT, Durati on: 30 day, Stop date: 11/16/17 12:19:00 CDT Notes: (Same as: Humalog ) Roll in palms of hands gently; Do not shake `vigorou sly. "Single Patient Use Only " WASTE: F/P - Black; E - [facility] [address] [facility] [address] able for 28 days at room temperature.Expires in days from Da te Start Date: 10/17/17 Stop Date: 10/18/17 Status: Discontinued insulin lispro 1 unit, 0.01 mL, Route: SUB-Q, Drug form: SOLN, Bedtime, Dosing Weight 84.091, k g, PRN Blood Glucose Results, Start date: 10/16/17 23:21:00 CDT, Duration: 30 da y, Stop date: 11/15/17 23:20:00 CDT Notes: (Same as: Humalog ) Roll in palms of hands gently; Do not shake `vigorou sly. "Single Patient Use Only " WASTE: F/P - Black; E - [facility] [address] [facility] [address] able for 28 days at room temperature.Expires in days from Da te Start Date: 10/16/17 Stop Date: 10/18/17 Status: Discontinued insulin lispro 3 unit, 0.03 mL, Route: SUB-Q, Drug form: SOLN, Bedtime, Dosing Weight 84.091, k g, PRN Blood Glucose Results, Start date: 10/16/17 23:21:00 CDT, Duration: 30 da y, Stop date: 11/15/17 23:20:00 CDT Notes: (Same as: Humalog ) Roll in palms of hands gently; Do not shake `vigorou sly. "Single Patient Use Only " WASTE: F/P - Black; E - [facility] [address] [facility] [address] able for 28 days at room temperature.Expires in days from Da te Start Date: 10/16/17 Stop Date: 10/18/17 Status: Discontinued insulin lispro 2 unit, 0.02 mL, Route: SUB-Q, Drug form: SOLN, Bedtime, Dosing Weight 84.091, k g, PRN Blood Glucose Results, Start date: 10/16/17 23:21:00 CDT, Duration: 30 da y, Stop date: 11/15/17 23:20:00 CDT Notes: (Same as: Humalog ) Roll in palms of hands gently; Do not shake `vigorou sly. "Single Patient Use Only " WASTE: F/P - Black; E - [facility] [address] [facility] [address] able for 28 days at room temperature.Expires in days from Da te Start Date: 10/16/17 Stop Date: 10/18/17 Status: Discontinued insulin lispro 4 unit, 0.04 mL, Route: SUB-Q, Drug form: SOLN, Bedtime, Dosing Weight 84.091, k g, PRN Blood Glucose Results, Start date: 10/16/17 23:21:00 CDT, Duration: 30 da y, Stop date: 11/15/17 23:20:00 CDT Notes: (Same as: Humalog ) Roll in palms of hands gently; Do not shake `vigorou sly. "Single Patient Use Only " WASTE: F/P - Black; E - [facility] [address] [facility] [address] able for 28 days at room temperature.Expires in days from Da te Start Date: 10/16/17 Stop Date: 10/18/17 Status: Discontinued losartan 100 mg, PO, Daily, 0 Refill(s) Start Date: 10/16/17 Status: Ordered losartan 100 mg, 2 tab, Route: PO, Drug form: TAB, Daily, Dosing Weight 84.091, kg, Start date: 10/17/17 9:00:00 CDT, Duration: 30 day, Stop date: 11/15/17 9:00:00 CDT Notes: (Same as: Korey) Start Date: 10/17/17 Stop Date: 10/18/17 Status: Discontinued morphine Sulfate 2 mg, 0.5 mL, Route: IVP, Drug form: SOLN, Q4H, Dosing Weight 84.091, kg, PRN Pa in Score 7-10, Start date: 10/16/17 20:34:00 CDT, Duration: 30 day, Stop date: 0 11/15/17 20:33:00 CDT Notes: (Same as:MORPhine Sulfate) Start Date: 10/16/17 Stop Date: 10/18/17 Status: Discontinued normal saline 0.9% IV 1,000 mL 1,000 mL, Rate: 100 ml/hr, Infuse over: 10 hr, Route: IV, Dosing Weight 84.091 k g, Total Volume: 1,000, Start date: 10/17/17 8:13:00 CDT, Duration: 30 day, Stop date: 11/16/17 8:12:00 CDT, 2.06, m2 Start Date: 10/17/17 Stop Date: 10/17/17 Status: Discontinued ondansetron 4 mg, 2 mL, Route: IVP, Drug form: INJ, Q6H, Dosing Weight 84.091, kg, PRN Nause a & Vomiting, Start date: 10/16/17 20:34:00 CDT, Duration: 30 day, Stop date: 11/15/17 20:33:00 CDT Notes: (Same as: Zofran) MEDICATION WASTE Product Size: 4 mgProduct Was sowmya: ___ mg Start Date: 10/16/17 Stop Date: 10/18/17 Status: Discontinued Toujeo SoloStar 300 units/mL subcutaneous solution 50 unit, SUB-Q, Bedtime, 0 Refill(s) Start Date: 10/16/17 Status: Ordered Toujeo SoloStar 300 units/mL subcutaneous solution 50 unit, Route: SUB-Q, Drug form: SOLN, Bedtime, Dosing Weight 84.091, kg, Start date: 10/16/17 21:00:00 CDT, Duration: 30 day, Stop date: 11/14/17 21:00:00 CDT Start Date: 10/16/17 Stop Date: 10/16/17 Status: Deleted vancomycin 1,000 mg, Route: IVPB, Drug form: INJ, [id number], Dosing Weight 84.091, kg, Start date: 10/16/17 21:00:00 CDT, Duration: 7 day, Stop date: 10/23/17 9:00:00 CDT, A BX Indication: Skin/Soft Tissue Infection Start Date: 10/16/17 Stop Date: 10/16/17 Status: Canceled vancomycin + Dextrose 5% in Water IV 250 mL 1,000 mg, Route: IVPB, [id number], Dosing Weight 84.091, kg, Start date: 10/17/17 1 6:00:00 CDT, Duration: 7 day, Stop date: 10/23/17 16:00:00 CDT, ABX Indication: Skin/Soft Tissue Infection Notes: TIME CRITICAL MEDICATION(Same As: Vancocin)Infusion rate< 1000 mg: infuse over 1 [id number] - 1500 mg: infuse over 1.5 [id number] - 2000 mg: infuse over 2 hours> 2001 mg: infuse over 2.5 hoursFor adult patients only: Round to nearest 250 mg per Medical Staff approval MEDICATION WASTE Product Size: 1000 mgProduct Wasted: ___ mg Start Date: 10/17/17 Stop Date: 10/17/17 Status: Discontinued Vancomycin Pharmacy Dosing 1 ea, Route: MISC, ONCALL, Dosing Weight 84.091, kg, Start date: 10/17/17 13:00: 00 CDT, Duration: 7 day, Stop date: 10/24/17 12:59:00 CDT, Pharmacy to dose, ABX Indication: Skin/Soft Tissue Infection Start Date: 10/17/17 Stop Date: 10/17/17 Status: Discontinued Results ELECTROLYTES Most recent to 1 2 oldest [Reference Range]: Sodium Lvl [135-145 146 mEq/L 147 mEq/L mEq/L] *HI* *HI* (10/18/17 7:15 AM) (10/17/17 7:19 AM) Potassium Lvl 3.7 mEq/L 4.2 mEq/L [3.5-5.1 mEq/L] (10/18/17 7:15 AM) (10/17/17 7:19 AM) Chloride Lvl [95-109 116 mEq/L 116 mEq/L mEq/L] *HI* *HI* (10/18/17 7:15 AM) (10/17/17 7:19 AM) CO2 [24-32 mEq/L] 23 mEq/L 23 mEq/L *LOW* *LOW* (10/18/17 7:15 AM) (10/17/17 7:19 AM) AGAP [10.0-20.0 10.7 mEq/L 12.2 mEq/L mEq/L] (10/18/17 7:15 AM) (10/17/17 7:19 AM) CHEM PANEL Most recent to 1 2 oldest [Reference Range]: Creatinine Lvl 2.33 mg/dL 2.50 mg/dL [0.50-1.40 mg/dL] *HI* *HI* (10/18/17 7:15 AM) (10/17/17 7:19 AM) eGFR 29 mL/min/1.73m2 1 27 mL/min/1.73m2 2 *NA* *NA* (10/18/17 7:15 AM) (10/17/17 7:19 AM) BUN [7-22 mg/dL] 29 mg/dL 34 mg/dL *HI* *HI* (10/18/17 7:15 AM) (10/17/17 7:19 AM) B/C Ratio [6-25] 12 14 (10/18/17 7:15 AM) (10/17/17 7:19 AM) Glucose Lvl [70-99 74 mg/dL 139 mg/dL mg/dL] (10/18/17 7:15 AM) *HI* (10/17/17 7:19 AM) Total Protein 6.0 g/dL 6.0 g/dL [6.4-8.4 g/dL] *LOW* *LOW* (10/18/17 7:15 AM) (10/17/17 7:19 AM) Albumin Lvl [3.5-5.0 1.9 g/dL 2.0 g/dL g/dL] *LOW* *LOW* (10/18/17 7:15 AM) (10/17/17 7:19 AM) Globulin [2.7-4.2 4.1 g/dL 4.0 g/dL g/dL] (10/18/17 7:15 AM) (10/17/17 7:19 AM) A/G Ratio [0.7-1.6] 0.5 0.5 *LOW* *LOW* (10/18/17 7:15 AM) (10/17/17 7:19 AM) Calcium Lvl 8.5 mg/dL 8.4 mg/dL [8.5-10.5 mg/dL] (10/18/17 7:15 AM) *LOW* (10/17/17 7:19 AM) ALT [0-65 unit/L] 22 unit/L 22 unit/L (10/18/17 7:15 AM) (10/17/17 7:19 AM) AST [0-37 unit/L] 22 unit/L 22 unit/L (10/18/17 7:15 AM) (10/17/17 7:19 AM) Alk Phos [39-136 98 unit/L 99 unit/L unit/L] (10/18/17 7:15 AM) (10/17/17 7:19 AM) Bili Total [0.2-1.3 0.5 mg/dL 0.3 mg/dL mg/dL] (10/18/17 7:15 AM) (10/17/17 7:19 AM) 1Result Comment: The eGFR is calculated using [...] be mul tiplied by the estimated BMI. 2Result Comment: The eGFR is calculated using the [...] be mul tiplied by the estimated BMI. SPECIAL CHEMISTRY Most recent to 1 2 oldest [Reference Range]: Hgb A1C [<=5.6 %] 8.7 % *HI* (10/17/17 7:19 AM) TOXICOLOGY Most recent to 1 2 oldest [Reference Range]: Vanco Lvl 13.0 ug/ml *NA* (10/17/17 2:16 PM) URINE CHEM Most recent to 1 2 oldest [Reference Range]: U Microalb 4100.0 mg/L *NA* (10/17/17 1:15 PM) U Alb/Crea [<=30.0 9738.7 mcg/mg creat mcg/mg creat] *HI* (10/17/17 1:15 PM) U Creatinine 42.10 mg/dL *NA* (10/17/17 1:15 PM) U Sodium 91 mEq/L *NA* (10/17/17 1:15 PM) URINE AND STOOL Most recent to 1 2 oldest [Reference Range]: UA Turbidity [Clear] Clear (10/17/17 1:15 PM) UA Color [Yellow] Yellow *NA* (10/17/17 1:15 PM) UA pH [5.0-8.0] 7.0 (10/17/17 1:15 PM) UA Spec Grav 1.020 [<=1.030] (10/17/17 1:15 PM) UA Glucose [Negative >=1000 mg/dL mg/dL] *ABN* (10/17/17 1:15 PM) UA Blood [Negative] Moderate *ABN* (10/17/17 1:15 PM) UA Ketones Negative [Negative] *NA* (10/17/17 1:15 PM) UA Protein [Negative >=300 mg/dL mg/dL] *ABN* (10/17/17 1:15 PM) UA Urobilinogen 0.2 EU/dL [0.1-1.0 EU/dL] (10/17/17 1:15 PM) UA Bili [Negative] Negative *NA* (10/17/17 1:15 PM) UA Leuk Est Negative [Negative] (10/17/17 1:15 PM) UA Nitrite Negative [Negative] (10/17/17 1:15 PM) UA WBC [0-5 /HPF] 2 /HPF (10/17/17 1:15 PM) UA RBC [0-2 /HPF] 3 /HPF *HI* (10/17/17 1:15 PM) UA Sq Epi [Few /LPF] Occasional /LPF *NA* (10/17/17 1:15 PM) IMMUNOLOGY Most recent to 1 2 oldest [Reference Range]: SIVA [Negative] Negative (10/18/17 10:53 AM) C3 Complement 107 mg/dL [88-201 mg/dL] (10/18/17 10:53 AM) C4 Complement [16-47 26 mg/dL mg/dL] (10/18/17 10:53 AM) C-ANCA [Negative] Negative (10/18/17 10:53 AM) P-ANCA [Negative] Negative (10/18/17 10:53 AM) CRP [<=2.9 mg/L] 7.2 mg/L *HI* (10/17/17 6:11 PM) HEMATOLOGY Most recent to 1 2 oldest [Reference Range]: WBC [3.7-10.4 K/CMM] 10.2 K/CMM 9.6 K/CMM (10/18/17 7:15 AM) (10/17/17 7:19 AM) RBC [4.70-6.10 3.98 M/CMM 3.76 M/CMM M/CMM] *LOW* *LOW* (10/18/17 7:15 AM) (10/17/17 7:19 AM) Hgb [14.0-18.0 g/dL] 11.1 g/dL 10.4 g/dL *LOW* *LOW* (10/18/17 7:15 AM) (10/17/17 7:19 AM) Hct [42.0-54.0 %] 32.6 % 30.7 % *LOW* *LOW* (10/18/17 7:15 AM) (10/17/17 7:19 AM) MCV [80.0-94.0 fL] 81.9 fL 81.6 fL (10/18/17 7:15 AM) (10/17/17 7:19 AM) MCH [27.0-31.0 pg] 27.9 pg 27.8 pg (10/18/17 7:15 AM) (10/17/17 7:19 AM) MCHC [32.0-36.0 34.1 g/dL 34.0 g/dL g/dL] (10/18/17 7:15 AM) (10/17/17 7:19 AM) RDW [11.5-14.5 %] 13.6 % 14.0 % (10/18/17 7:15 AM) (10/17/17 7:19 AM) MPV [7.4-10.4 fL] 7.4 fL 7.0 fL (10/18/17 7:15 AM) *LOW* (10/17/17 7:19 AM) Platelet [133-450 273 K/CMM 269 K/CMM K/CMM] (10/18/17 7:15 AM) (10/17/17 7:19 AM) Segs [45.0-75.0 %] 60.1 % 63.7 % (10/18/17 7:15 AM) (10/17/17 7:19 AM) Lymphocytes 29.0 % 24.0 % [20.0-40.0 %] (10/18/17 7:15 AM) (10/17/17 7:19 AM) Monocytes [2.0-12.0 6.8 % 8.0 % %] (10/18/17 7:15 AM) (10/17/17 7:19 AM) Eosinophils [0.0-4.0 2.6 % 2.9 % %] (10/18/17 7:15 AM) (10/17/17 7:19 AM) Basophils [0.0-1.0 1.5 % 1.4 % %] *HI* *HI* (10/18/17 7:15 AM) (10/17/17 7:19 AM) Segs-Bands # 6.1 K/CMM 6.1 K/CMM [1.5-8.1 K/CMM] (10/18/17 7:15 AM) (10/17/17 7:19 AM) Lymphocytes # 3.0 K/CMM 2.3 K/CMM [1.0-5.5 K/CMM] (10/18/17 7:15 AM) (10/17/17 7:19 AM) Monocytes # [0.0-0.8 0.7 K/CMM 0.8 K/CMM K/CMM] (10/18/17 7:15 AM) (10/17/17 7:19 AM) Eosinophils # 0.3 K/CMM 0.3 K/CMM [0.0-0.5 K/CMM] (10/18/17 7:15 AM) (10/17/17 7:19 AM) Basophils # [0.0-0.2 0.2 K/CMM 0.1 K/CMM K/CMM] (10/18/17 7:15 AM) (10/17/17 7:19 AM) PT [12.0-14.7 14.2 seconds seconds] (10/17/17 7:19 AM) INR [0.85-1.17] 1.10 (10/17/17 7:19 AM) PTT [22.9-35.8 31.7 seconds seconds] (10/17/17 7:19 AM) Microbiology Reports TEST: Culture: Wound/Abscess w/Gram Stain STATUS: Order in Progress BODY SITE: Left Leg SOURCE: Wound, Non Surgical COLLECTED DATE/TIME: 10/18/17 9:32 AM PRELIMINARY REPORT Few Gram Negative Rods Identification And Sensitivity Pending STAIN REPORT No Wbc'S; Few Gram Positive Cocci In Clusters Immunizations Given and Recorded Vaccine Date Status [...] 12; entered on: 10/16/17 Assessment and Plan Extracted from: Title: Discharge Summary Author: Fariba Rhodes MD Date: 10/18/17 Discharge Summary Name: Rene Palma Admission Date: 10/16/17 Discharge Date: 10/18/17 Diagnoses: LLE Cellulitis Left ankle ulcer Left fifth toe necrotic ulcer peripheral vascular disease HTN HLD DM Procedures: None HPI: 62-year-old male with a past medical history of hypertension and diabetes who presents with a wound on his left lower extremity. Patient was moving furniture and scraped his left lower extremity the wound has not healed in the past 4 weeks over the past week he has been draining purulent material is foul-smelling he also complains of fevers and chills as well. He denied any chest pain shortness of breath no nausea vomiting -- per Dr. Austin Hospital course: Blood and wound cultures obtained. Started on vanc/cefepime. ID Dr. Dutta consulted. MRI LLE showed edema but no abscess or OM. Arterial dopplers negative for significant femoral/popliteal stenosis but was suggestive of possible distal (tibia) disease mostly in the LLE. Dr. Lewis (vascular) consulted and recomended no further work up including MRA/CTA or MINA as patient had strong DP pulses in both feet. Podiatry consulted and obtained wound culture which is pending. Blood cx are negative to date. Dr. Dutta recommended d/c on cipro/flagyl x 10 days and will f/u in clinic for culture results. Patient was afebrile and HDS on day of discharge. Denied any foot pain and understood instructions to complete abx and f/u in clinic with Dr. Dutta, Dr. Lewis, and his PCP. Maintained on home meds for HTN, HLD, PVD, and DM Discharge condition: - stable Discharge therapy: Medications - see med rec Diet - cardiac/diabetic Activity - as tolerates Follow up - Dr. Westley Lewis, Dr. Gabriella Dutta, PCP Fariba Rhodes MD [facility] Hospitalist Addendum Physical Exam by Carmelo, Gen: awake, alert, NAD Fariba HEENT: NC/AT, EOMI, oropharynx clear MD on Pulm: CTAB, no wheezing or crackles 10/18/2017 Cardiac: RRR, no m/r/g 22:51 Abd: +BS, soft, NT, ND Ext: left ankle medial and lateral ulcers, mild edema/erythema no purulent discharge, left 5th toe necrotic ulcer, 2+ DP pulses bilaterally Neuro: no focal deficits Extracted from: Title: Clinical Document Author: Zunilda Grimm MD Date: 10/18/17 NEPHROLOGY PROGRESS NOTE ZUNILDA GRIMM MD SUBJECTIVE: pt feels and looks fair no sob, n/v or cp no new issues overnight OBJECTIVE: Input/Output RecordInOutBal 4hr Tot 2270 0 2270 10/223hr Tot 340 0 340 Vitals and Temp: VitalsTmp(F)[id number] 10/18 07:[id number]/240846--- 10/18 04:[id number]/8018------ 10/18 00:[id number]--- 10/17 19:[id number]--- 10/17 15:[id number]--- 24 Hr Tmax: 98.9F (37.17c) at 10/18 07:46Vital Signs are the last 5 in the past 48 hours. EXAM: In no acute distress CHEST: Revealed fair air entry. No significant rales or rhonchi. HEART: S1, S2 with no significant murmurs. ABDOMEN: Soft. Non tender. Bowel sounds are positive. EXTREMITIES: trace pedal edema. CENTRAL NERVOUS SYSTEM: Pt. was awake and alert. There was no gross motor deficit noted. LABORATORY DATA: Labs (Last four charted values) WBC 10.2(OCT 18)9.6(OCT 17) Hgb L 11.1(OCT 18)L 10.4(OCT 17) Hct L 32.6(OCT 18)L 30.7(OCT 17) Plt 273(OCT 18)269(OCT 17) Na H 147(OCT 17) K 4.2(OCT 17) CO2 L 23(OCT 17) Cl H 116(OCT 17) Cr H 2.50(OCT 17) BUN H 34(OCT 17) Glucose Random H 139(OCT 17) Ca L 8.4(OCT 17) PT 14.2(OCT 17) INR 1.10(OCT 17) PTT 31.7(OCT 17) IMPRESSION: CKD3 with stable scr 2.5 mg/dl with good uo Evolumic Stable lytes and met. profile neph proteinuria prob from dm nephroapthy anemia L leg cellulitis, imp. PLAN: Continue present treatment will need to be put back on losartan before d/c f/u with me in 4-6 weeks after d/c labs in am Further recommendations to follow MEDS: Scheduled Meds (9):amLODIPine, amitriptyline, aspirin, atorvastatin, cefepime + Sodium Chloride 0.9% IV 100 mL, docusate, insulin glargine, losartan, metroNIDAZOLE (Flagyl) Unscheduled Meds (1):pneumococcal 23-valent vaccine PRN Meds (16):Dextrose 50% in Water IV (Dextrose 50% Syringe), Dextrose 50% in Water IV (Dextrose 50% Syringe), acetaminophen-hydrocodone (acetaminophen- hydrocodone 325 mg-5 mg oral tablet), acetaminophen, glucagon, insulin lispro, insulin lispro, insulin lispro, insulin lispro, insulin lispro, insulin lispro, insulin lispro, insulin lispro, insulin lispro, morphine Sulfate, ondansetron One Time Meds: None Continuous Infusions: None Extracted from: Title: Clinical Document Author: Westley Lewis MD Date: 10/17/17 VASCULAR SURGERY CONSULT NOTE Westley Lewis MD FACS DATE OF CONSULT: 10/17/2017 DATE OF : 1955 REFERRING PHYSICIAN:Dr Tolbert REASON FOR THE CONSULT: Left leg necrotic ulcers and left fifth toe necrotic scab HISTORY OF PRESENT ILLNESS: This is a 62 years old male who has chronic renal failure he was wearing tight shoes and developed callus in his left fifth toe and also fell and because developed ulcers on his legs. These leg ulcers are healing but still have scab on it and has necrotic ulcer or a scab on his left fifth toe. He denies rest pain and back pain claudication. REVIEW OF SYSTEM: RESPIRATORY: No cough, no dyspnea CARDIOVASCULAR: No chest pain or pressure. No palpitations GASTROINTESTINAL: No dysphagia, odynophagia, bright blood per rectum, heartburn, diarrhea or constipation. No nausea, vomiting, or hemetemesis MUSCULOSKELETAL: No myalgias, arthralgias, joint swelling. NEUROLOGICAL: No vertigo or disturbance of balance or coordination.No motor or sensory complaints. No headache.No amaurosis fugax, no TIAs GENITOURINARY: No dysuria, urgency or urinary frequency. No incontinence. ALLERGIES: Allergies (1) ActiveReaction NKDANone documented MEDICATION LIST: Scheduled Meds (9): 10/17/17 amLODIPine 5 mg PO Daily 10/16/17 amitriptyline 25 mg PO Bedtime 10/16/17 aspirin 81 mg PO Daily 10/16/17 atorvastatin 40 mg PO Bedtime 10/16/17 cefepime + Sodium Chloride 0.9% IV 100 mL 1 gm IVPB [id number] 25 ml/hr 10/17/17 docusate 100 mg PO BID 10/16/17 insulin glargine 40 unit SUB-Q Bedtime 0 ml/hr 10/17/17 losartan 100 mg PO Daily 10/17/17 vancomycin 1,000 mg IVPB [id number] PAST MEDICAL HISTORY Hypertension Kidney stones PAST SURGICAL HISTORY: No qualifying data available SOCIAL HISTORY: Alcohol Details: Never Tobacco Details: Use: Current every day smoker. Type: Cigarettes. 12 per day. Tobacco smoke exposure: None. Did the Patient Smoke Cigarettes Anytime During the Last 365 Days? No. Cessation Counseling Provided? No. Substance Abuse Details: Use: None. PHYSICAL EXAM: VitalsTmp(F)[id number] 10/17 [id number]--- 10/17 [id number]--- 10/17 [id number]--- 10/16 [id number]--- 24 Hr Tmax: 98.3F (36.83c) at 10/17 07:23Vital Signs are the last 5 in the past 48 hours. HEAD AND NECK: Normocephalic atraumatic EYES: Extraocular muscles intact CHEST: Clear to auscultation CARDIAC: Regular rate rhythm ABDOMEN: Soft nontender VASCULAR EXAM: Palpable left DP pulse palpable right DP FOOT: Necrotic scab left fifth toe, scabs in left leg with the level of healing of his leg ulcers LABORATORY DATA: Labs (Last four charted values) WBC 9.6(OCT 17) Hgb L 10.4(OCT 17) Hct L 30.7(OCT 17) Plt 269(OCT 17) Na H 147(OCT 17) K 4.2(OCT 17) CO2 L 23(OCT 17) Cl H 116(OCT 17) Cr H 2.50(OCT 17) BUN H 34(OCT 17) Glucose Random H 139(OCT 17) Ca L 8.4(OCT 17) PT 14.2(OCT 17) INR 1.10(OCT 17) PTT 31.7(OCT 17) RADIOLOGIC AND VASCULAR IMAGING: Arterial duplex study reveals minimal arterial insufficiency and minimal atherosclerotic plaque with triphasic flow in both lower extremities. ASSESSMENT AND PLAN: This is a 62 years old male who has diabetes and chronic renal failure. Patient developed ulcer scab in his left lower callus in his left fifth toe from tight fitting shoes. He has palpable pulse in his DP and duplex reveals no evidence of arterial insufficiency. I recommend continued wound care and will recommend podiatry consultation. Extracted from: Title: General Admission H&P * Author: Zach Austin MD Date: 10/16/17 Impression and Plan Patient is a 62-year-old male who presents with worsening redness and swelling of the left lower extremity patient does have cellulitis as well as a draining wound on the left lower extremity 1. Cellulitis of the left lower extremity will place patient on vancomycin and cefepime We will order an MRI of the left lower extremity We will also order bilateral arterial Dopplers of the lower extremities to evaluate for peripheral vascular disease We will have vascular surgery evaluate the wound for possible debridement 2. Diabetes mellitus we will resume his previous home therapy and will place him on insulin MPP 3. Leukocytosis of 11,000 secondary to the cellulitis of the lower extremity will continue antibiotic coverage with vancomycin and cefepime 4. Hypertension is stable continue current therapy 5. Moderate protein calorie malnutrition albumin is 2.1 will have dietary evaluate patient 6. Disposition patient will require stay greater than 2 midnights and therefore will need to be made inpatient status
--- OUTSIDE RECORDS SUMMARY | 2018-07-30 19:54 | XMS REPORT ---
[facility] Address Unknown Phone Unavailable Care Team Providers Care Cross Tie Cutter Name Role Phone Unavailable Unavailable Payers Payer Name Policy Type Policy Number Effective Date Expiration Date Problems This patient has no known problems. Allergies, Adverse Reactions, Alerts Allergy Name Allergy Type Status Severity Reaction(s) Onset Date Inactive Date Treating Clinician Comments No Known Allergies DA Active U 2018-05-04 00:00:00 No Known Drug Intolerances DA Active U 2001-11-19 00:00:00 No Known Contrast Allergies DA Active U 2001-11-19 00:00:00 No Known Drug Allergies DA Active U 2001-11-19 00:00:00 No Known Food Allergies DA Active U 2001-11-19 00:00:00 No Known Other Allergies DA Active U 2001-11-19 00:00:00 Medications This patient has no known medications. Encounters Start Date/Time End Date/Time Encounter Type Admission Type Attending Clinicians Care Facility Care Department Encounter ID 2018-04-30 20:08:13 Inpatient [facility] [id number] 2018-04-26 01:42:50 Inpatient [facility] [id number] 2018-04-26 01:42:13 Inpatient [facility] [id number] 2018-10-05 00:00:00 2018-10-05 00:00:00 Outpatient [facility] [id number] 2018 00:00:00 2018 00:00:00 Outpatient [facility] [id number] 2018-09-26 00:00:00 2018-09-26 00:00:00 Outpatient [facility] [id number] 2018-08-09 00:00:00 2018-08-09 00:00:00 Outpatient [facility] [id number] 2018-08-03 00:00:00 2018-08-03 00:00:00 Outpatient [facility] [id number] 2018-08-01 00:00:00 2018-08-01 00:00:00 Outpatient [facility] [id number] 2018-08-01 00:00:00 2018-08-01 00:00:00 Outpatient [facility] [id number] 2018-07-23 00:00:00 2018-07-23 00:00:00 Outpatient [facility] [id number] 2018-07-12 18:43:03 2018-07-12 18:43:03 Emergency [facility] [id number] 2018-07-12 15:16:35 2018-07-12 15:16:35 Emergency [facility] [id number] 2018-07-02 09:29:51 2018-07-02 09:29:51 Outpatient [facility] [id number] 2018-06-27 00:00:00 2018-06-27 00:00:00 Outpatient [facility] [id number] 2018-06-21 15:12:57 2018-06-21 15:12:57 Outpatient [facility] [id number] 2018-06-21 14:03:40 2018-06-21 14:03:40 Outpatient [facility] [id number] 2018-06-13 17:36:22 2018-06-13 17:36:22 Outpatient [facility] [id number] 2018-06-11 00:00:00 2018-06-11 00:00:00 Outpatient [facility] [id number] 2018-06-11 00:00:00 2018-06-11 00:00:00 Outpatient [facility] [id number] 2018-06-08 09:25:04 2018-06-08 09:25:04 Outpatient [facility] [id number] 2018-06-05 14:46:22 2018-06-05 14:46:22 Outpatient [facility] [id number] 2018-05-23 07:59:14 2018-05-23 07:59:14 Outpatient [facility] [id number] 2018-05-16 10:19:28 2018-05-16 10:19:28 Outpatient [facility] [id number] 2018-05-16 09:56:56 2018-05-16 09:56:56 Outpatient [facility] [id number] 2018-05-16 08:16:41 2018-05-16 08:16:41 Outpatient [facility] [id number] 2018-05-14 00:00:00 2018-05-14 00:00:00 Outpatient [facility] [id number] 2018-05-08 00:00:00 2018-05-08 00:00:00 Outpatient [facility] [id number] 2018-04-30 00:00:00 2018-04-30 00:00:00 Outpatient [facility] [id number] 2018-04-27 00:00:00 2018-04-27 00:00:00 Outpatient [facility] [id number] 2018-04-27 00:00:00 2018-04-27 00:00:00 Outpatient [facility] [id number] 2018-04-25 14:06:44 2018-04-25 14:06:44 Emergency [facility] [id number] 2018-04-25 14:06:39 2018-04-25 14:06:39 Emergency [facility] [id number] 2018-04-25 12:51:01 2018-04-25 12:51:01 Inpatient [facility] [id number] 2018-04-20 11:31:14 2018-04-20 11:31:14 Outpatient [facility] [id number] 2018-04-20 11:07:00 2018-04-20 11:07:00 Outpatient [facility] [id number] 2018-04-20 09:54:20 2018-04-20 09:54:20 Outpatient [facility] [id number] 2018-04-20 08:33:43 2018-04-20 08:33:43 Outpatient [facility] [id number] 2018-04-18 00:00:00 2018-04-18 00:00:00 Outpatient [facility] [id number] 2018-03-19 14:56:03 2018-03-19 14:56:03 Outpatient [facility] [id number] 2018-03-19 13:46:19 2018-03-19 13:46:19 Outpatient [facility] [id number] 2018-03-17 00:28:32 2018-03-17 00:28:32 Outpatient [facility] [id number] 2018-03-16 19:36:25 2018-03-16 19:36:25 Emergency [facility] [id number] 2018-02-09 13:47:18 2018-02-09 13:47:18 Emergency [facility] [id number] 2018-02-09 12:48:28 2018-02-09 12:48:28 Outpatient [facility] [id number] Results Test Description Test Time Test Comments Text Results Atomic Results Result Comments GLUBED 2018-05-14 12:16:00 GLUBED (test code=GLUBED) 284 mg/dL 74-106 Performed by certified upsetting machine operator at [facility] [id number] 12:16:00* Test Item Value Reference Range Comments GLUBED (test code=GLUBED) 163 mg/dL 74-106 [facility] certified upsetting [facility] BASIC METABOLIC [id number] 07:22:00* Test Item Value Reference Range Comments SODIUM (test code=NA) 138 mmol/L 136-145 POTASSIUM (test code=K) 3.3 mmol/L 3.5-5.1 CHLORIDE (test code=CL) 99.0 mmol/L 98-107 CARBON DIOXIDE (test code=CO2) 30.0 mmol/L 21-32 ANION GAP (test code=GAP) 12.3 10-20 GLUCOSE (test code=GLU) 218 mg/dL 74-106 BLOOD UREA NITROGEN (test code=BUN) 51 mg/dL 7-18 GLOMERULAR FILTRATION RATE (test code=GFR) 23 mL/min >=60 Estimated GFR by using Modified MDRD formula.Chronic kidney disease is defined as either kidney damageor GFR <60 mL/min/1.73 m2 for >3 months. CREATININE (test code=CREAT) 2.80 mg/dL 0.7-1.3 BUN/CREATININE RATIO (test code=BUN/CREA) 18.1 10-20 CALCIUM (test code=CA) 7.7 mg/dL 8.5-10.1 BASIC METABOLIC [id number] 07:07:00* Test Item Value Reference Range Comments SODIUM (test code=NA) 138 mmol/L 136-145 POTASSIUM (test code=K) 3.3 mmol/L 3.5-5.1 CHLORIDE (test code=CL) 99.0 mmol/L 98-107 CARBON DIOXIDE (test code=CO2) mmol/L 21-32 ANION GAP (test code=GAP) 10-20 GLUCOSE (test code=GLU) mg/dL 74-106 BLOOD UREA NITROGEN (test code=BUN) mg/dL 7-18 GLOMERULAR FILTRATION RATE (test code=GFR) mL/min >=60 CREATININE (test code=CREAT) mg/dL 0.7-1.3 BUN/CREATININE RATIO (test code=BUN/CREA) 10-20 CALCIUM (test code=CA) mg/dL 8.5-10.1 [id number] 20:44:00* Test Item Value Reference Range Comments GLUBED (test code=GLUBED) 374 mg/dL 74-106 Performed by certified upsetting machine operator at [facility] [id number] 16:49:00* Test Item Value Reference Range Comments GLUBED (test code=GLUBED) 293 mg/dL 74-106 Performed by certified upsetting machine operator at [facility] [id number] 11:36:00* Test Item Value Reference Range Comments GLUBED (test code=GLUBED) 392 mg/dL 74-106 Performed by certified upsetting machine operator at [facility] BASIC METABOLIC [id number] 05:19:00* Test Item Value Reference Range Comments SODIUM (test code=NA) 136 mmol/L 136-145 POTASSIUM (test code=K) 3.1 mmol/L 3.5-5.1 CHLORIDE (test code=CL) 97.0 mmol/L 98-107 CARBON DIOXIDE (test code=CO2) 32.0 mmol/L 21-32 ANION GAP (test code=GAP) 10.1 10-20 GLUCOSE (test code=GLU) 259 mg/dL 74-106 BLOOD UREA NITROGEN (test code=BUN) 51 mg/dL 7-18 GLOMERULAR FILTRATION RATE (test code=GFR) 21 mL/min >=60 Estimated GFR by using Modified MDRD formula.Chronic kidney disease is defined as either kidney damageor GFR <60 mL/min/1.73 m2 for >3 months. CREATININE (test code=CREAT) 3.00 mg/dL 0.7-1.3 BUN/CREATININE RATIO (test code=BUN/CREA) 17.0 10-20 CALCIUM (test code=CA) 7.6 mg/dL 8.5-10.1 BASIC METABOLIC [id number] 05:16:00* Test Item Value Reference Range Comments SODIUM (test code=NA) 136 mmol/L 136-145 POTASSIUM (test code=K) 3.1 mmol/L 3.5-5.1 CHLORIDE (test code=CL) 97.0 mmol/L 98-107 CARBON DIOXIDE (test code=CO2) mmol/L 21-32 ANION GAP (test code=GAP) 10-20 GLUCOSE (test code=GLU) mg/dL 74-106 BLOOD UREA NITROGEN (test code=BUN) mg/dL 7-18 GLOMERULAR FILTRATION RATE (test code=GFR) mL/min >=60 CREATININE (test code=CREAT) mg/dL 0.7-1.3 BUN/CREATININE RATIO (test code=BUN/CREA) 10-20 CALCIUM (test code=CA) mg/dL 8.5-10.1 [id number] 04:42:00* Test Item Value Reference Range Comments GLUBED (test code=GLUBED) 245 mg/dL 74-106 Performed by certified upsetting machine operator at [facility] [id number] 11:59:00* Test Item Value Reference Range Comments GLUBED (test code=GLUBED) 308 mg/dL 74-106 Performed by certified upsetting machine operator at [facility] BASIC METABOLIC [id number] 10:00:00* Test Item Value Reference Range Comments SODIUM (test code=NA) 134 mmol/L 136-145 POTASSIUM (test code=K) 3.1 mmol/L 3.5-5.1 CHLORIDE (test code=CL) 97.0 mmol/L 98-107 CARBON DIOXIDE (test code=CO2) 32.0 mmol/L 21-32 ANION GAP (test code=GAP) 8.1 10-20 GLUCOSE (test code=GLU) 272 mg/dL 74-106 BLOOD UREA NITROGEN (test code=BUN) 54 mg/dL 7-18 GLOMERULAR FILTRATION RATE (test code=GFR) 20 mL/min >=60 Estimated GFR by using Modified MDRD formula.Chronic kidney disease is defined as either kidney damageor GFR <60 mL/min/1.73 m2 for >3 months. CREATININE (test code=CREAT) 3.20 mg/dL 0.7-1.3 BUN/CREATININE RATIO (test code=BUN/CREA) 16.9 10-20 CALCIUM (test code=CA) 7.6 mg/dL 8.5-10.1 [id number] 10:00:00* Test Item Value Reference Range Comments VANCOMYCIN (test code=VANCO) 19.1 UG/ML 5.0-45.0 BASIC METABOLIC [id number] 09:32:00* Test Item Value Reference Range Comments SODIUM (test code=NA) 134 mmol/L 136-145 POTASSIUM (test code=K) 3.1 mmol/L 3.5-5.1 CHLORIDE (test code=CL) 97.0 mmol/L 98-107 CARBON DIOXIDE (test code=CO2) mmol/L 21-32 ANION GAP (test code=GAP) 10-20 GLUCOSE (test code=GLU) mg/dL 74-106 BLOOD UREA NITROGEN (test code=BUN) mg/dL 7-18 GLOMERULAR FILTRATION RATE (test code=GFR) mL/min >=60 CREATININE (test code=CREAT) mg/dL 0.7-1.3 BUN/CREATININE RATIO (test code=BUN/CREA) 10-20 CALCIUM (test code=CA) mg/dL 8.5-10.1 CBC W/AUTO [id number] 09:25:00* Test Item Value Reference Range Comments WHITE BLOOD CELL (test code=WBC) 11.6 K/mm3 4.5-12.5 RED BLOOD CELL (test code=RBC) 3.18 mill/mm3 4.0-5.8 HEMOGLOBIN (test code=HGB) 8.4 gram/dL 13.0-17.5 HEMATOCRIT (test code=HCT) 26.8 % 42.0-52.0 MEAN CELL VOLUME (test code=MCV) 84.3 fL 80-98 MEAN CELL HGB (test code=MCH) 26.4 picogram 27.0-33.0 MEAN CELL HGB CONCETRATION (test code=MCHC) 31.3 gram/dL 33.0-36.0 RED CELL DISTRIBUTION WIDTH (test code=RDW) 13.9 % 11.6-16.2 RED CELL DISTRIBUTION WIDTH SD (test code=RDW-SD) 43.0 fL 37.0-51.0 PLATELET COUNT (test code=PLT) 348 K/mm3 150-450 MEAN PLATELET VOLUME (test code=MPV) 9.7 fL 6.7-11.0 NEUTROPHIL % (test code=NT%) 74.4 % 39.0-69.0 IMMATURE GRANULOCYTE % (test code=IG%) 0.4 % 0.0-5.0 LYMPHOCYTE % (test code=LY%) 16.6 % 25.0-55.0 MONOCYTE % (test code=MO%) 6.4 % 0.0-10.0 EOSINOPHIL % (test code=EO%) 1.5 % 0.0-5.0 BASOPHIL % (test code=BA%) 0.7 % 0.0-1.0 NUCLEATED RBC % (test code=NRBC%) 0.0 % 0-0 NEUTROPHIL # (test code=NT#) 8.66 K/mm3 1.8-7.7 IMMATURE GRANULOCYTE # (test code=IG#) 0.05 x10 3/uL 0-0.03 LYMPHOCYTE # (test code=LY#) 1.93 K/mm3 1.0-5.0 MONOCYTE # (test code=MO#) 0.75 K/mm3 0-0.8 EOSINOPHIL # (test code=EO#) 0.17 K/mm3 0.0-0.5 BASOPHIL # (test code=BA#) 0.08 K/mm3 0.0-0.2 NUCLEATED RBC # (test code=NRBC#) 0.00 K/mm3 0.0-0.1 MANUAL DIFF REQUIRED (test code=MDIFF) NO [id number] 08:29:00* Test Item Value Reference Range Comments GLUBED (test code=GLUBED) 268 mg/dL 74-106 Performed by certified upsetting machine operator at [facility] [id number] 21:02:00* Test Item Value Reference Range Comments GLUBED (test code=GLUBED) 247 mg/dL 74-106 Performed by certified upsetting machine operator at [facility] [id number] 16:55:00* Test Item Value Reference Range Comments GLUBED (test code=GLUBED) 190 mg/dL 74-106 [facility]formed by certified upsetting machine operator [facility] [id number] 14:22:00* Test Item Value Reference Range Comments VANCOMYCIN (test code=VANCO) 23.5 UG/ML 5.0-45.0 [id number] 12:35:00* Test Item Value Reference Range Comments GLUBED (test code=GLUBED) 224 mg/dL 74-106 Performed by certified upsetting machine operator [facility] [id number] 08:51:00* Test Item Value Reference Range Comments GLUBED (test code=GLUBED) 192 mg/dL 74-106 [facility]formed by certified upsetting machine operator [facility] CBC W/AUTO [id number] 08:13:00* Test Item Value Reference Range Comments WHITE BLOOD CELL (test code=WBC) 11.7 K/mm3 4.5-12.5 RED BLOOD CELL (test code=RBC) 2.86 mill/mm3 4.0-5.8 HEMOGLOBIN (test code=HGB) 7.5 gram/dL 13.0-17.5 HEMATOCRIT (test code=HCT) 24.6 % 42.0-52.0 MEAN CELL VOLUME (test code=MCV) 86.0 fL 80-98 MEAN CELL HGB (test code=MCH) 26.2 picogram 27.0-33.0 MEAN CELL HGB CONCETRATION (test code=MCHC) 30.5 gram/dL 33.0-36.0 RED CELL DISTRIBUTION WIDTH (test code=RDW) 14.1 % 11.6-16.2 RED CELL DISTRIBUTION WIDTH SD (test code=RDW-SD) 44.0 fL 37.0-51.0 PLATELET COUNT (test code=PLT) 341 K/mm3 150-450 MEAN PLATELET VOLUME (test code=MPV) 9.9 fL 6.7-11.0 NEUTROPHIL % (test code=NT%) 70.2 % 39.0-69.0 IMMATURE GRANULOCYTE % (test code=IG%) 0.6 % 0.0-5.0 LYMPHOCYTE % (test code=LY%) 18.9 % 25.0-55.0 MONOCYTE % (test code=MO%) 8.3 % 0.0-10.0 EOSINOPHIL % (test code=EO%) 1.3 % 0.0-5.0 BASOPHIL % (test code=BA%) 0.7 % 0.0-1.0 NUCLEATED RBC % (test code=NRBC%) 0.0 % 0-0 NEUTROPHIL # (test code=NT#) 8.23 K/mm3 1.8-7.7 IMMATURE GRANULOCYTE # (test code=IG#) 0.07 x10 3/uL 0-0.03 LYMPHOCYTE # (test code=LY#) 2.21 K/mm3 1.0-5.0 MONOCYTE # (test code=MO#) 0.97 K/mm3 0-0.8 EOSINOPHIL # (test code=EO#) 0.15 K/mm3 0.0-0.5 BASOPHIL # (test code=BA#) 0.08 K/mm3 0.0-0.2 NUCLEATED RBC # (test code=NRBC#) 0.00 K/mm3 0.0-0.1 MANUAL DIFF REQUIRED (test code=MDIFF) NO BASIC METABOLIC [id number] 07:38:00* Test Item Value Reference Range Comments SODIUM (test code=NA) 135 mmol/L 136-145 POTASSIUM (test code=K) 3.4 mmol/L 3.5-5.1 CHLORIDE (test code=CL) 99.0 mmol/L 98-107 CARBON DIOXIDE (test code=CO2) 28.0 mmol/L 21-32 ANION GAP (test code=GAP) 11.4 10-20 GLUCOSE (test code=GLU) 216 mg/dL 74-106 BLOOD UREA NITROGEN (test code=BUN) 58 mg/dL 7-18 GLOMERULAR FILTRATION RATE (test code=GFR) 21 mL/min >=60 Estimated GFR by using Modified MDRD formula.Chronic kidney disease is defined as either kidney damageor GFR <60 mL/min/1.73 m2 for >3 months. CREATININE (test code=CREAT) 3.10 mg/dL 0.7-1.3 BUN/CREATININE RATIO (test code=BUN/CREA) 18.7 10-20 CALCIUM (test code=CA) 7.4 mg/dL 8.5-10.1 BASIC METABOLIC [id number] 07:24:00* Test Item Value Reference Range Comments SODIUM (test code=NA) 135 mmol/L 136-145 POTASSIUM (test code=K) 3.4 mmol/L 3.5-5.1 CHLORIDE (test code=CL) 99.0 mmol/L 98-107 CARBON DIOXIDE (test code=CO2) mmol/L 21-32 ANION GAP (test code=GAP) 10-20 GLUCOSE (test code=GLU) mg/dL 74-106 BLOOD UREA NITROGEN (test code=BUN) mg/dL 7-18 GLOMERULAR FILTRATION RATE (test code=GFR) mL/min >=60 CREATININE (test code=CREAT) mg/dL 0.7-1.3 BUN/CREATININE RATIO (test code=BUN/CREA) 10-20 CALCIUM (test code=CA) mg/dL 8.5-10.1 [id number] 21:52:00* Test Item Value Reference Range Comments GLUBED (test code=GLUBED) 272 mg/dL 74-106 Performed by certified upsetting machine operator at [facility] [id number] 17:07:00* Test Item Value Reference Range Comments POTASSIUM (test code=K) 3.2 mmol/L 3.5-5.1 [id number] 15:37:00* Test Item Value Reference Range Comments GLUBED (test code=GLUBED) 162 mg/dL 74-106 Performed by certified upsetting machine operator at [facility] [id number] 15:37:00* Test Item Value Reference Range Comments GLUBED (test code=GLUBED) 168 mg/dL 74-106 Performed by certified upsetting machine operator at [facility] CBC W/AUTO [id number] 10:45:00* Test Item Value Reference Range Comments WHITE BLOOD CELL (test code=WBC) 14.6 K/mm3 4.5-12.5 RED BLOOD CELL (test code=RBC) 3.07 mill/mm3 4.0-5.8 HEMOGLOBIN (test code=HGB) 8.1 gram/dL 13.0-17.5 HEMATOCRIT (test code=HCT) 25.8 % 42.0-52.0 MEAN CELL VOLUME (test code=MCV) 84.0 fL 80-98 MEAN CELL HGB (test code=MCH) 26.4 picogram 27.0-33.0 MEAN CELL HGB CONCETRATION (test code=MCHC) 31.4 gram/dL 33.0-36.0 RED CELL DISTRIBUTION WIDTH (test code=RDW) 14.3 % 11.6-16.2 RED CELL DISTRIBUTION WIDTH SD (test code=RDW-SD) 43.7 fL 37.0-51.0 PLATELET COUNT (test code=PLT) 377 K/mm3 150-450 MEAN PLATELET VOLUME (test code=MPV) 9.9 fL 6.7-11.0 NEUTROPHIL % (test code=NT%) 75.4 % 39.0-69.0 IMMATURE GRANULOCYTE % (test code=IG%) 0.8 % 0.0-5.0 LYMPHOCYTE % (test code=LY%) 14.2 % 25.0-55.0 MONOCYTE % (test code=MO%) 8.1 % 0.0-10.0 EOSINOPHIL % (test code=EO%) 1.0 % 0.0-5.0 BASOPHIL % (test code=BA%) 0.5 % 0.0-1.0 NUCLEATED RBC % (test code=NRBC%) 0.0 % 0-0 NEUTROPHIL # (test code=NT#) 10.98 K/mm3 1.8-7.7 IMMATURE GRANULOCYTE # (test code=IG#) 0.12 x10 3/uL 0-0.03 LYMPHOCYTE # (test code=LY#) 2.07 K/mm3 1.0-5.0 MONOCYTE # (test code=MO#) 1.18 K/mm3 0-0.8 EOSINOPHIL # (test code=EO#) 0.14 K/mm3 0.0-0.5 BASOPHIL # (test code=BA#) 0.07 K/mm3 0.0-0.2 NUCLEATED RBC # (test code=NRBC#) 0.00 K/mm3 0.0-0.1 MANUAL DIFF REQUIRED (test code=MDIFF) NO BASIC METABOLIC [id number] 09:44:00* Test Item Value Reference Range Comments SODIUM (test code=NA) 136 mmol/L 136-145 POTASSIUM (test code=K) 2.8 mmol/L 3.5-5.1 Results called to [id number] by KELLE 05/10/18 0943Critical results verified and read back by Nurse? Y CHLORIDE (test code=CL) 97.0 mmol/L 98-107 CARBON DIOXIDE (test code=CO2) 32.0 mmol/L 21-32 ANION GAP (test code=GAP) 9.8 10-20 GLUCOSE (test code=GLU) 192 mg/dL 74-106 BLOOD UREA NITROGEN (test code=BUN) 61 mg/dL 7-18 GLOMERULAR FILTRATION RATE (test code=GFR) 21 mL/min >=60 Estimated GFR by using Modified MDRD formula.Chronic kidney disease is defined as either kidney damageor GFR <60 mL/min/1.73 m2 for >3 months. CREATININE (test code=CREAT) 3.10 mg/dL 0.7-1.3 BUN/CREATININE RATIO (test code=BUN/CREA) 19.7 10-20 CALCIUM (test code=CA) 7.5 mg/dL 8.5-10.1 [id number] 09:39:00* Test Item Value Reference Range Comments VANCOMYCIN (test code=VANCO) 26.7 UG/ML 5.0-45.0 [id number] 08:31:00* Test Item Value Reference Range Comments GLUBED (test code=GLUBED) 189 mg/dL 74-106 Performed by certified upsetting machine operator at [facility] [id number] 21:20:00* Test Item Value Reference Range Comments GLUBED (test code=GLUBED) 224 mg/dL 74-106 Performed by certified upsetting machine operator at [facility] [id number] 16:37:00* Test Item Value Reference Range Comments GLUBED (test code=GLUBED) 207 mg/dL 74-106 Performed by certified upsetting machine operator at [facility] [id number] 12:12:00* Test Item Value Reference Range Comments GLUBED (test code=GLUBED) 178 mg/dL 74-106 Performed by certified upsetting machine operator at [facility] [id number] 08:26:00* Test Item Value Reference Range Comments GLUBED (test code=GLUBED) 112 mg/dL 74-106 Performed by certified upsetting machine operator at [facility] [id number] 21:17:00* Test Item Value Reference Range Comments GLUBED (test code=GLUBED) 246 mg/dL 74-106 Performed by certified upsetting machine operator at [facility] VANCOMYCIN [id number] 20:53:00* Test Item Value Reference Range Comments VANCOMYCIN TROUGH (test code=VANCT) 34.3 ug/mL 10-[id number] 18:42:00* Test Item Value Reference Range Comments FLUID WBC AUTO (test code=WBCFLA) 116 cells/uL FLUID RBC AUTO (test code=RBCFLA) 0 cells/uL FLUID TOTAL CELLS (test code=TCFL) 128 cells/uL >0 Fluid WBC RBC PMN% MN%Type cells/uL cells/uL CSF (0-5) n/a (2+/-4) (90+/-20)Peritoneal n/a n/a n/a n/aPleural n/a n/a n/a n/aSynovial <200 n/a <25% <75% CSF (0-30) n/a (4+/-4) (90+/-20) PLEURAL FLD COLOR (test code=COLPL) COLORLESS PLEURAL FLD APPEARANCE (test code=APPPL) CLEAR PLEURAL FLD POLY (test code=POLYPL) 35.0 % PLEURAL FLD LYMPHOCYTE (test code=LYMPHPL) 12.6 % PLEURAL FLD EOSINOPHIL (test code=EOSPL) 1.9 % PLEURAL FLD BASOPHIL (test code=BASOPL) 0.0 % PLEURAL FLD MACROPHAGE (test code=MACPL) 50.5 % PLEURAL FLD OTHER CELL (test code=OTHERPL) 0 % TOTAL CELLS COUNTED ON DIFF (test code=TOTCELLFL) 103 cells REVIEWED BY (test code=REVIEW) PATHOLOGIST REVIEWED BY: ELIZABETH YANCEY M.D.05/08/18 PLEURAL FLD [id number] 18:42:00* Test Item Value Reference Range Comments PLEURAL FLD PH (test code=PHPL) 7 PLEURAL FLD [id number] 18:42:00* Test Item Value Reference Range Comments PLEURAL FLD GLUCOSE (test code=GLUPL) 288 MG/DL PLEURAL FLD TOTAL [id number] 18:42:00* Test Item Value Reference Range Comments PLEURAL FLD TOTAL PROTEIN (test code=PROTPL) 1.1 gram/dL PLEURAL FLD [id number] 18:42:00* Test Item Value Reference Range Comments PLEURAL FLD ALBUMIN (test code=ALBPL) 0.4 gram/dL PLEURAL FLD [id number] 18:42:00* Test Item Value Reference Range Comments PLEURAL FLD LDH (test code=LDHPL) 75 IUnit/L PLEURAL FLD [id number] 18:42:00* Test Item Value Reference Range Comments PLEURAL FLD CHOLESTEROL (test code=CHOLPL) < 50 MG/DL [id number] 17:05:00* Test Item Value Reference Range Comments GLUBED (test code=GLUBED) 223 mg/dL 74-106 Performed by certified upsetting machine operator at [facility] PLEURAL FLD CELL [id number] 14:09:00* Test Item Value Reference Range Comments FLUID WBC AUTO (test code=WBCFLA) 116 cells/uL FLUID RBC AUTO (test code=RBCFLA) 0 cells/uL FLUID TOTAL CELLS (test code=TCFL) 128 cells/uL >0 Fluid WBC RBC PMN% MN%Type cells/uL cells/uL CSF (0-5) n/a (2+/-4) (90+/-20)Peritoneal n/a n/a n/a n/aPleural n/a n/a n/a n/aSynovial <200 n/a <25% <75% CSF (0-30) n/a (4+/-4) (90+/-20) PLEURAL FLD COLOR (test code=COLPL) COLORLESS PLEURAL FLD APPEARANCE (test code=APPPL) CLEAR PLEURAL FLD POLY (test code=POLYPL) 35.0 % PLEURAL FLD LYMPHOCYTE (test code=LYMPHPL) 12.6 % PLEURAL FLD EOSINOPHIL (test code=EOSPL) 1.9 % PLEURAL FLD BASOPHIL (test code=BASOPL) 0.0 % PLEURAL FLD MACROPHAGE (test code=MACPL) 50.5 % PLEURAL FLD OTHER CELL (test code=OTHERPL) 0 % TOTAL CELLS COUNTED ON DIFF (test code=TOTCELLFL) 103 cells REVIEWED BY (test code=REVIEW) PATHOLOGIST PLEURAL FLD [id number] 14:09:00* Test Item Value Reference Range Comments PLEURAL FLD PH (test code=PHPL) 7 PLEURAL FLD [id number] 14:09:00* Test Item Value Reference Range Comments PLEURAL FLD GLUCOSE (test code=GLUPL) 288 MG/DL PLEURAL FLD TOTAL [id number] 14:09:00* Test Item Value Reference Range Comments PLEURAL FLD TOTAL PROTEIN (test code=PROTPL) 1.1 gram/dL PLEURAL FLD [id number] 14:09:00* Test Item Value Reference Range Comments PLEURAL FLD ALBUMIN (test code=ALBPL) 0.4 gram/dL PLEURAL FLD [id number] 14:09:00* Test Item Value Reference Range Comments PLEURAL FLD LDH (test code=LDHPL) 75 IUnit/L PLEURAL FLD [id number] 14:09:00* Test Item Value Reference Range Comments PLEURAL FLD CHOLESTEROL (test code=CHOLPL) < 50 MG/DL PLEURAL FLD CELL [id number] 12:55:00* Test Item Value Reference Range Comments FLUID WBC AUTO (test code=WBCFLA) 116 cells/uL FLUID RBC AUTO (test code=RBCFLA) 0 cells/uL FLUID TOTAL CELLS (test code=TCFL) 128 cells/uL >0 Fluid WBC RBC PMN% MN%Type cells/uL cells/uL CSF (0-5) n/a (2+/-4) (90+/-20)Peritoneal n/a n/a n/a n/aPleural n/a n/a n/a n/aSynovial <200 n/a <25% <75% CSF (0-30) n/a (4+/-4) (90+/-20) PLEURAL FLD COLOR (test code=COLPL) COLORLESS PLEURAL FLD APPEARANCE (test code=APPPL) CLEAR PLEURAL FLD POLY (test code=POLYPL) 35.0 % PLEURAL FLD LYMPHOCYTE (test code=LYMPHPL) 12.6 % PLEURAL FLD EOSINOPHIL (test code=EOSPL) 1.9 % PLEURAL FLD BASOPHIL (test code=BASOPL) 0.0 % PLEURAL FLD MACROPHAGE (test code=MACPL) 50.5 % PLEURAL FLD OTHER CELL (test code=OTHERPL) 0 % TOTAL CELLS COUNTED ON DIFF (test code=TOTCELLFL) 103 cells REVIEWED BY (test code=REVIEW) PATHOLOGIST PLEURAL FLD [id number] 12:55:00* Test Item Value Reference Range Comments PLEURAL FLD PH (test code=PHPL) 7 PLEURAL FLD [id number] 12:55:00* Test Item Value Reference Range Comments PLEURAL FLD GLUCOSE (test code=GLUPL) 288 MG/DL PLEURAL FLD TOTAL [id number] 12:55:00* Test Item Value Reference Range Comments PLEURAL FLD TOTAL PROTEIN (test code=PROTPL) 1.1 gram/dL PLEURAL FLD [id number] 12:55:00* Test Item Value Reference Range Comments PLEURAL FLD ALBUMIN (test code=ALBPL) gram/dL PLEURAL FLD [id number] 12:55:00* Test Item Value Reference Range Comments PLEURAL FLD LDH (test code=LDHPL) 75 IUnit/L PLEURAL FLD [id number] 12:55:00* Test Item Value Reference Range Comments PLEURAL FLD CHOLESTEROL (test code=CHOLPL) < 50 MG/DL PLEURAL FLD CELL [id number] 12:52:00* Test Item Value Reference Range Comments FLUID WBC AUTO (test code=WBCFLA) 116 cells/uL FLUID RBC AUTO (test code=RBCFLA) 0 cells/uL FLUID TOTAL CELLS (test code=TCFL) 128 cells/uL >0 Fluid WBC RBC PMN% MN%Type cells/uL cells/uL CSF (0-5) n/a (2+/-4) (90+/-20)Peritoneal n/a n/a n/a n/aPleural n/a n/a n/a n/aSynovial <200 n/a <25% <75% CSF (0-30) n/a (4+/-4) (90+/-20) PLEURAL FLD COLOR (test code=COLPL) PLEURAL FLD APPEARANCE (test code=APPPL) PLEURAL FLD WBC (test code=WBCPL) per uL 0-1000 PLEURAL FLD RBC (test code=RBCPL) per uL 0-50 PLEURAL FLD POLY (test code=POLYPL) 35.0 % PLEURAL FLD LYMPHOCYTE (test code=LYMPHPL) 12.6 % PLEURAL FLD EOSINOPHIL (test code=EOSPL) 1.9 % PLEURAL FLD BASOPHIL (test code=BASOPL) 0.0 % PLEURAL FLD MACROPHAGE (test code=MACPL) 50.5 % PLEURAL FLD OTHER CELL (test code=OTHERPL) 0 % TOTAL CELLS COUNTED ON DIFF (test code=TOTCELLFL) cells REVIEWED BY (test code=REVIEW) PATHOLOGIST PLEURAL FLD [id number] 12:52:00* Test Item Value Reference Range Comments PLEURAL FLD PH (test code=PHPL) PLEURAL FLD [id number] 12:52:00* Test Item Value Reference Range Comments PLEURAL FLD GLUCOSE (test code=GLUPL) 288 MG/DL PLEURAL FLD TOTAL [id number] 12:52:00* Test Item Value Reference Range Comments PLEURAL FLD TOTAL PROTEIN (test code=PROTPL) 1.1 gram/dL PLEURAL FLD [id number] 12:52:00* Test Item Value Reference Range Comments PLEURAL FLD ALBUMIN (test code=ALBPL) gram/dL PLEURAL FLD [id number] 12:52:00* Test Item Value Reference Range Comments PLEURAL FLD LDH (test code=LDHPL) 75 IUnit/L PLEURAL FLD [id number] 12:52:00* Test Item Value Reference Range Comments PLEURAL FLD CHOLESTEROL (test code=CHOLPL) < 50 MG/DL - SP THORACENTESIS [id number] 12:19:00 Name: RENE PALMA [facility] SP : 1955 Age/S: 62 / M [address] [facility] Unit #: [id number] Loc: [place] [address] Phys: Polo Salgado MD Acct: [id number] Dis Date: Status: ADM IN PHONE #: [phone] Exam Date: 05/08/2018 0945 FAX #: [phone] Reason: EXAMS: CPT CODE: [id number] SP THORACENTESIS W/IMAG 64206 Fluoro Time: 0 DAP (Gy m2): 0 Air Kerma (mGy): 0 REASON FOR EXAM: Left pleural effusion Exam order date: 05/08/2018 9:35 AM PROCEDURE: Ultrasound guided thoracentesis Attending M.D.: Polo Pina MD CPT code: 42554, 95019 FINDINGS: After informed consent was obtained, the patient was brought to special procedures. The back was prepped and draped in the usual fashion. All elements of maximal sterile techniques were followed. Ultrasound was first used for assessment of the effusion. US shows large left pleural effusion. Images of the effusion were submitted to PACS. 2% local lidocaine was given for local anesthetic. Under real time ultrasound guidance, a micropuncture needle was advanced into the left thoracic cavity. A guide wire was inserted and an 8 Fr catheter was inserted in the thoracic cavity. 1.15 fluid obtained. The catheter was removed and hemostasis obtained. Samples were submitted for gram stain, cultures, cell count, LDH, glucose, and protein. MEDICATIONS: None COMPLICATIONS: No immediate. Blood loss: less than 5cc IMPRESSION: 1.15 L fluid removed from the left thoracic cavity. at 1218 Reported and signed by: Khoa Rock M.D. CC: Polo Salgado MD Technolog ist: ESTEFANIA BOWLES RT(R) Trnscb Date/Time: (2316) t.SDR.VTL Orig Print D/T: S: 05/08/2018 ( 5932) PAGE 1 Signed Report [id number] 11:47:00* Test Item Value Reference Range Comments GLUBED (test code=GLUBED) 313 mg/dL 74-106 Performed by certified upsetting machine operator at [facility] PLEURAL FLD CELL [id number] 11:18:00* Test Item Value Reference Range Comments FLUID WBC AUTO (test code=WBCFLA) 116 cells/uL FLUID RBC AUTO (test code=RBCFLA) 0 cells/uL FLUID TOTAL CELLS (test code=TCFL) 128 cells/uL >0 Fluid WBC RBC PMN% MN%Type cells/uL cells/uL CSF (0-5) n/a (2+/-4) (90+/-20)Peritoneal n/a n/a n/a n/aPleural n/a n/a n/a n/aSynovial <200 n/a <25% <75% CSF (0-30) n/a (4+/-4) (90+/-20) PLEURAL FLD COLOR (test code=COLPL) PLEURAL FLD APPEARANCE (test code=APPPL) PLEURAL FLD WBC (test code=WBCPL) per uL 0-1000 PLEURAL FLD RBC (test code=RBCPL) per uL 0-50 TOTAL CELLS COUNTED ON DIFF (test code=TOTCELLFL) cells REVIEWED BY (test code=REVIEW) PATHOLOGIST PLEURAL FLD [id number] 11:18:00* Test Item Value Reference Range Comments PLEURAL FLD PH (test code=PHPL) PLEURAL FLD [id number] 11:18:00* Test Item Value Reference Range Comments PLEURAL FLD GLUCOSE (test code=GLUPL) 288 MG/DL PLEURAL FLD TOTAL [id number] 11:18:00* Test Item Value Reference Range Comments PLEURAL FLD TOTAL PROTEIN (test code=PROTPL) 1.1 gram/dL PLEURAL FLD [id number] 11:18:00* Test Item Value Reference Range Comments PLEURAL FLD ALBUMIN (test code=ALBPL) gram/dL PLEURAL FLD [id number] 11:18:00* Test Item Value Reference Range Comments PLEURAL FLD LDH (test code=LDHPL) 75 IUnit/L PLEURAL FLD [id number] 11:18:00* Test Item Value Reference Range Comments PLEURAL FLD CHOLESTEROL (test code=CHOLPL) < 50 MG/DL PLEURAL FLD CELL [id number] 11:09:00* Test Item Value Reference Range Comments FLUID WBC AUTO (test code=WBCFLA) 116 cells/uL FLUID RBC AUTO (test code=RBCFLA) 0 cells/uL FLUID TOTAL CELLS (test code=TCFL) 128 cells/uL >0 Fluid WBC RBC PMN% MN%Type cells/uL cells/uL CSF (0-5) n/a (2+/-4) (90+/-20)Peritoneal n/a n/a n/a n/aPleural n/a n/a n/a n/aSynovial <200 n/a <25% <75% CSF (0-30) n/a (4+/-4) (90+/-20) PLEURAL FLD COLOR (test code=COLPL) PLEURAL FLD APPEARANCE (test code=APPPL) PLEURAL FLD WBC (test code=WBCPL) per uL 0-1000 PLEURAL FLD RBC (test code=RBCPL) per uL 0-50 TOTAL CELLS COUNTED ON DIFF (test code=TOTCELLFL) cells REVIEWED BY (test code=REVIEW) PATHOLOGIST PLEURAL FLD [id number] 11:09:00* Test Item Value Reference Range Comments PLEURAL FLD PH (test code=PHPL) PLEURAL FLD [id number] 11:09:00* Test Item Value Reference Range Comments PLEURAL FLD GLUCOSE (test code=GLUPL) MG/DL PLEURAL FLD TOTAL [id number] 11:09:00* Test Item Value Reference Range Comments PLEURAL FLD TOTAL PROTEIN (test code=PROTPL) gram/dL PLEURAL FLD [id number] 11:09:00* Test Item Value Reference Range Comments PLEURAL FLD ALBUMIN (test code=ALBPL) gram/dL PLEURAL FLD [id number] 11:09:00* Test Item Value Reference Range Comments PLEURAL FLD LDH (test code=LDHPL) IUnit/L PLEURAL FLD [id number] 11:09:00* Test Item Value Reference Range Comments PLEURAL FLD CHOLESTEROL (test code=CHOLPL) MG/DL [id number] 10:43:00* Test Item Value Reference Range Comments GLUBED (test code=GLUBED) 247 mg/dL 74-106 Performed by certified upsetting machine operator at [facility] - XR CHEST 1 [id number] 10:13:00 FAX: Polo Salgado [phone] [place]: St: ADM Name: RENE GALVAN [facility] : [birth year] 60 Age/S: 62/M [address] [facility] Unit #: [id number] Loc: V.[address] [place] [address] Phys: Khoa Rock MD Acct: [id number] Dis Date: Status: ADM IN PHONE #: [phone] Exam Date: 05/08/2018 0959 FAX #: [phone] Reason: THORA EXAMS: CPT CODE: [id number] XR CHEST 1 V 42313 HISTORY: Post thoracentesis. COMPARISON: May 07, 2018. No pneumothorax after left thoracentesis. Resolved effusion and subsegmental atelectasis. Dependent changes bilaterally. No acute infiltrates, effusion or congestion is noted. Cardiomegaly. IMPRESSION: No pneumothorax after left thoracentesis. No acute infil trates, effusion or congestion. at 1013 Reported and signed by: Otto Bejarano M.D. CC: Polo Salgado MD Technologist: Dea Lynn(Lenore) Trnscrd Date/Time/By: 05/08/2018 (1013) : By: [email or web address] Orig P rint D/T: S: 05/08/2018 (1016) PAGE 1 Signed Report PROTHROMBIN [id number] 07:21:00* Test Item Value Reference Range Comments PROTHROMBIN TIME PATIENT (test code=PTP) 14.5 seconds 9.0-14.0 INTERNATIONAL NORMAL RATIO (test code=INR) 1.2 0.8-1.2 The therapeutic range for oral anticoagulant therapy formost indications is an international normalized ratio (INR)of between 2.0 and 3.0. The recommended therapeutic INRrange for various clinical situations is listed below: Clinical Situation INR range Pulmonary e mbolism treatment (2.0-3.0)Venous thrombosis treatmentVenous thrombosis prophylaxis (high risk surgery)Prevention of systemic embolism from: Acute myocardial infarction Valvular heart disease Atrial fibrillation Mechanical prosthetic heart valves (2.5-3.5) IS PATIENT ON ANTICOAGULANTS? YLIST ANTICOAGULANTS ASPIRINCOMPREHENSIVE METABOLIC [id number] 07:05:00* Test Item Value Reference Range Comments SODIUM (test code=NA) 135 mmol/L 136-145 POTASSIUM (test code=K) 3.0 mmol/L 3.5-5.1 CHLORIDE (test code=CL) 100.0 mmol/L 98-107 CARBON DIOXIDE (test code=CO2) 25.0 mmol/L 21-32 ANION GAP (test code=GAP) 13.0 10-20 GLUCOSE (test code=GLU) 265 mg/dL 74-106 BLOOD UREA NITROGEN (test code=BUN) 67 mg/dL 7-18 GLOMERULAR FILTRATION RATE (test code=GFR) 19 mL/min >=60 Estimated GFR by using Modified MDRD formula.Chronic kidney disease is defined as either kidney damageor GFR <60 mL/min/1.73 m2 for >3 months. CREATININE (test code=CREAT) 3.40 mg/dL 0.7-1.3 BUN/CREATININE RATIO (test code=BUN/CREA) 19.6 10-20 TOTAL PROTEIN (test code=PROT) 5.3 gram/dL 6.4-8.2 ALBUMIN (test code=ALB) 1.2 g/dL 3.4-5.0 GLOBULIN (test code=GLOB) 4.1 gram/dL 2.7-4.2 ALBUMIN/GLOBULIN RATIO (test code=A/G) 0.3 0.75-1.50 CALCIUM (test code=CA) 7.5 mg/dL 8.5-10.1 BILIRUBIN TOTAL (test code=BILT) 0.20 mg/dL 0.0-1.0 SGOT/AST (test code=AST) 10 IUnit/L 15-37 SGPT/ALT (test code=ALT) 18 IUnit/L 12-78 ALKALINE PHOSPHATASE TOTAL (test code=ALKP) 97 IUnit/L 45-117 Note change in reference range due to change in reagent. LACTIC DEHYDROGENASE(LDH)2018-05-08 07:05:00* Test Item Value Reference Range Comments LACTIC DEHYDROGENASE(LDH) (test code=LDH) 168 IUnit/L 84-246 COMPREHENSIVE METABOLIC [id number] 06:52:00* Test Item Value Reference Range Comments SODIUM (test code=NA) 135 mmol/L 136-145 POTASSIUM (test code=K) 3.0 mmol/L 3.5-5.1 CHLORIDE (test code=CL) 100.0 mmol/L 98-107 CARBON DIOXIDE (test code=CO2) mmol/L 21-32 ANION GAP (test code=GAP) 10-20 GLUCOSE (test code=GLU) mg/dL 74-106 BLOOD UREA NITROGEN (test code=BUN) mg/dL 7-18 GLOMERULAR FILTRATION RATE (test code=GFR) mL/min >=60 CREATININE (test code=CREAT) mg/dL 0.7-1.3 BUN/CREATININE RATIO (test code=BUN/CREA) 10-20 TOTAL PROTEIN (test code=PROT) gram/dL 6.4-8.2 ALBUMIN (test code=ALB) g/dL 3.4-5.0 GLOBULIN (test code=GLOB) gram/dL 2.7-4.2 ALBUMIN/GLOBULIN RATIO (test code=A/G) 0.75-1.50 CALCIUM (test code=CA) mg/dL 8.5-10.1 BILIRUBIN TOTAL (test code=BILT) mg/dL 0.0-1.0 SGOT/AST (test code=AST) IUnit/L 15-37 SGPT/ALT (test code=ALT) IUnit/L 12-78 ALKALINE PHOSPHATASE TOTAL (test code=ALKP) IUnit/L 45-117 LACTIC DEHYDROGENASE(LDH)2018-05-08 06:52:00* Test Item Value Reference Range Comments LACTIC DEHYDROGENASE(LDH) (test code=LDH) IUnit/L 84-246 CBC W/AUTO [id number] 06:43:00* Test Item Value Reference Range Comments WHITE BLOOD CELL (test code=WBC) 16.9 K/mm3 4.5-12.5 RED BLOOD CELL (test code=RBC) 2.98 mill/mm3 4.0-5.8 HEMOGLOBIN (test code=HGB) 7.9 gram/dL 13.0-17.5 HEMATOCRIT (test code=HCT) 24.5 % 42.0-52.0 MEAN CELL VOLUME (test code=MCV) 82.2 fL 80-98 MEAN CELL HGB (test code=MCH) 26.5 picogram 27.0-33.0 MEAN CELL HGB CONCETRATION (test code=MCHC) 32.2 gram/dL 33.0-36.0 RED CELL DISTRIBUTION WIDTH (test code=RDW) 14.5 % 11.6-16.2 RED CELL DISTRIBUTION WIDTH SD (test code=RDW-SD) 43.0 fL 37.0-51.0 PLATELET COUNT (test code=PLT) 391 K/mm3 150-450 MEAN PLATELET VOLUME (test code=MPV) 9.5 fL 6.7-11.0 NEUTROPHIL % (test code=NT%) 78.5 % 39.0-69.0 IMMATURE GRANULOCYTE % (test code=IG%) 0.8 % 0.0-5.0 LYMPHOCYTE % (test code=LY%) 11.8 % 25.0-55.0 MONOCYTE % (test code=MO%) 8.2 % 0.0-10.0 EOSINOPHIL % (test code=EO%) 0.4 % 0.0-5.0 BASOPHIL % (test code=BA%) 0.3 % 0.0-1.0 NUCLEATED RBC % (test code=NRBC%) 0.0 % 0-0 NEUTROPHIL # (test code=NT#) 13.24 K/mm3 1.8-7.7 IMMATURE GRANULOCYTE # (test code=IG#) 0.13 x10 3/uL 0-0.03 LYMPHOCYTE # (test code=LY#) 1.99 K/mm3 1.0-5.0 MONOCYTE # (test code=MO#) 1.38 K/mm3 0-0.8 EOSINOPHIL # (test code=EO#) 0.07 K/mm3 0.0-0.5 BASOPHIL # (test code=BA#) 0.05 K/mm3 0.0-0.2 NUCLEATED RBC # (test code=NRBC#) 0.00 K/mm3 0.0-0.1 [id number] 20:41:00* Test Item Value Reference Range Comments GLUBED (test code=GLUBED) 322 mg/dL 74-106 Performed by certified upsetting machine operator at [facility] [id number] 20:41:00* Test Item Value Reference Range Comments GLUBED (test code=GLUBED) 266 mg/dL 74-106 Performed by certified upsetting machine operator at [facility] [id number] 20:41:00* Test Item Value Reference Range Comments GLUBED (test code=GLUBED) 312 mg/dL 74-106 Performed by certified upsetting machine operator at [facility] - XR CHEST 1 [id number] 17:32:00 FAX: Mark Ayers MD [phone] [place]: B St: [facility] FAX: Polo Salgado [phone] Name: RENE PALMA [facility] : 1955 Age/S: 62/M [place] Unit #: [id number] Loc: [address] [place] [address] Phys: Mark Alanis MD Acct: [id number] Dis Date: Status: ADM IN PHONE #: [phone] Exam Date: 05/07/2018 1610 FAX #: [phone] Reason: f/u plerual effusions, see if able to drain EXAMS: CPT CODE: [id number] XR CHEST 1 V 72800 EXAM: Chest x-ray, one view; INFORMATION: Effusions; IMPRESSION: 1. Lungs are well aerated with mild basilar atelectatic changes. 2. Small left pleural effusion; no evidence of right effusion. 3. Heart size has decreased; it is within upper limits of normal. at 1732 Reported and signed by: Clem Ovalle M.D. CC: Mark Alanis MD; Polo Salgado MD Technologist: RAUL ROGER RT(R) Trnscrd Date/Time/By: 05/07/2018 (2177) : By: Bishop.GRW Orig Print D/T: S: 05/07/2018 (6284) PAGE 1 Signed Report PROTHROMBIN [id number] 17:16:00* Test Item Value Reference Range Comments PROTHROMBIN TIME PATIENT (test code=PTP) 13.8 seconds 9.0-14.0 INTERNATIONAL NORMAL RATIO (test code=INR) 1.1 0.8-1.2 The therapeutic range for oral anticoagulant therapy formost indications is an international normalized ratio (INR)of between 2.0 and 3.0. The recommended therapeutic INRrange for various clinical situations is listed below: Clinical Situation INR range Pulmonary e mbolism treatment (2.0-3.0)Venous thrombosis treatmentVenous thrombosis prophylaxis (high risk surgery)Prevention of systemic embolism from: Acute myocardial infarction Valvular heart disease Atrial fibrillation Mechanical prosthetic heart valves (2.5-3.5) IS PATIENT ON ANTICOAGULANTS? YLIST ANTICOAGULANTS ASPIRINTHROMBOPLASTIN TIME [id number] 17:16:00* Test Item Value Reference Range Comments THROMBOPLASTIN TIME PARTIAL (test code=PTT) 28.3 seconds 25.0-36.5 IS PATIENT ON ANTICOAGULANTS? YLIST ANTICOAGULANTS ASPIRINPLEURAL FLD CELL [id number] 14:48:00* Test Item Value Reference Range Comments FLUID WBC AUTO (test code=WBCFLA) 132 cells/uL FLUID RBC AUTO (test code=RBCFLA) 0 cells/uL FLUID TOTAL CELLS (test code=TCFL) 172 cells/uL >0 Fluid WBC RBC PMN% MN%Type cells/uL cells/uL CSF (0-5) n/a (2+/-4) (90+/-20)Peritoneal n/a n/a n/a n/aPleural n/a n/a n/a n/aSynovial <200 n/a <25% <75% CSF (0-30) n/a (4+/-4) (90+/-20) PLEURAL FLD COLOR (test code=COLPL) YELLOW LIGHT YELLOW PLEURAL FLD APPEARANCE (test code=APPPL) HAZY PLEURAL FLD POLY (test code=POLYPL) 67.0 % PLEURAL FLD LYMPHOCYTE (test code=LYMPHPL) 8.0 % PLEURAL FLD MACROPHAGE (test code=MACPL) 6.0 % PLEURAL FLD OTHER CELL (test code=OTHERPL) 19 % TOTAL CELLS COUNTED ON DIFF (test code=TOTCELLFL) 100 cells REVIEWED BY (test code=REVIEW) ELIZABETH DURAN PATHOLOGIST SPECIMEN COMMENTS: RIGHT PLEURAL FLUIDPLEURAL FLD [id number] 14:48:00* Test Item Value Reference Range Comments PLEURAL FLD PH (test code=PHPL) 7.0 SPECIMEN COMMENTS: RIGHT PLEURAL FLUIDPLEURAL FLD [id number] 14:48:00* Test Item Value Reference Range Comments PLEURAL FLD GLUCOSE (test code=GLUPL) 275 MG/DL SPECIMEN COMMENTS: RIGHT PLEURAL FLUIDPLEURAL FLD TOTAL [id number] 14:48:00* Test Item Value Reference Range Comments PLEURAL FLD TOTAL PROTEIN (test code=PROTPL) 1.1 gram/dL SPECIMEN COMMENTS: RIGHT PLEURAL FLUIDPLEURAL FLD [id number] 14:48:00* Test Item Value Reference Range Comments PLEURAL FLD ALBUMIN (test code=ALBPL) 0.4 gram/dL SPECIMEN COMMENTS: RIGHT PLEURAL FLUIDPLEURAL FLD [id number] 14:48:00* Test Item Value Reference Range Comments PLEURAL FLD LDH (test code=LDHPL) 78 IUnit/L SPECIMEN COMMENTS: RIGHT PLEURAL FLUID- MRI LOW EXT W/O CONT [id number] 12:18:00 FAX: Polo Salgado [phone] [place]: St: ADM Name: RENE GALVAN [facility] : [birth year] 60 Age/S: 62/M [address] [facility] Unit #: [id number] Loc: V.[address] [place] [address] Phys: Polo Salgado MD Acct: [id number] Dis Date: Status: ADM IN PHONE #: [phone] Exam Date: 05/07/2018 1120 FAX #: [phone] Reason: R/O OSTEOM EXAMS: CPT CODE: [id number] MRI LOW EXT W/[place] [address] HISTORY: Osteomyelitis evaluation. COMPARISON: None available. MRI left foot without c ontrast: Diffuse edematous changes of the 2nd and the 3rd metatars al bone and the 2nd and the 3rd proximal phalanx with ill-defined margin suspicious for osteomyelitis. Rest of the digits are grossly normal signal without evidence for edema or osteomyelitis or erosive or destructi ve changes. Mild polyarticular joint space narrowing. Diffuse cellulitis with soft tissue swelling. Visualized tendons are intact. No drainable abscess collection. Plantar fascia is unremarkable. Sinus tarsi ligament s are unremarkable. No osteochondral lesion of the talus. IMPRESSION: FINDINGS suspicious for osteomyelitis of the 2nd of the 3rd proximal phalanx and the 3rd and the 2nd metatarsal bones. C ellulitis. No abscess. at 1218 Reported and signed by: Otto Bejarano M.D. CC: Polo Salgado MD Technologist: DELL POWERRT - MRI Trncord Date/Time/By: 05/07/2018 (9586) : By: [email or web address] Orig Print D/T: S: 05/07/2018 (3529) PAGE 1 Signed Report [id number] 08:13:00* Test Item Value Reference Range Comments GLUBED (test code=GLUBED) 265 mg/dL 74-106 Performed by certified upsetting machine operator at [facility] PROCALCITONIN (PCT)2018-05-07 06:32:00* Test Item Value Reference Range Comments PROCALCITONIN (PCT) (test code=PROCAL) 0.41 ng/ml Concentration Interpretation (ng/mL) <0.51 Sepsis is not likely. Local bacterial infection is possible. (LOW RISK for progression to Sepsis) 0.51 - 2.00 Sepsis is possible, but other conditions are known to elevate PCT as well. (MODERATE RISK for progression to Sepsis) > 2.00 Sepsis is likely, unless other causes are known. (HIGH RISK for progression to Severe Sepsis or Septic Shock) 10.00 High likelihood of Severe Sepsis or Septic or higher Shock. *Increased PCT levels may not always be related to systemic bacterial infection.*Low PCT levels do not automatically exclude the presence of bacterial infection.*All results should be interpreted taking into account the patients history. BASIC METABOLIC [id number] 05:38:00* Test Item Value Reference Range Comments SODIUM (test code=NA) 133 mmol/L 136-145 POTASSIUM (test code=K) 3.1 mmol/L 3.5-5.1 CHLORIDE (test code=CL) 100.0 mmol/L 98-107 CARBON DIOXIDE (test code=CO2) 22.0 mmol/L 21-32 ANION GAP (test code=GAP) 14.1 10-20 GLUCOSE (test code=GLU) 307 mg/dL 74-106 BLOOD UREA NITROGEN (test code=BUN) 75 mg/dL 7-18 GLOMERULAR FILTRATION RATE (test code=GFR) 18 mL/min >=60 Estimated GFR by using Modified MDRD formula.Chronic kidney disease is defined as either kidney damageor GFR <60 mL/min/1.73 m2 for >3 months. CREATININE (test code=CREAT) 3.50 mg/dL 0.7-1.3 BUN/CREATININE RATIO (test code=BUN/CREA) 21.4 10-20 CALCIUM (test code=CA) 7.7 mg/dL 8.5-10.1 CBC W/AUTO [id number] 05:04:00* Test Item Value Reference Range Comments WHITE BLOOD CELL (test code=WBC) 14.6 K/mm3 4.5-12.5 RED BLOOD CELL (test code=RBC) 3.10 mill/mm3 4.0-5.8 HEMOGLOBIN (test code=HGB) 8.4 gram/dL 13.0-17.5 HEMATOCRIT (test code=HCT) 25.7 % 42.0-52.0 MEAN CELL VOLUME (test code=MCV) 82.9 fL 80-98 MEAN CELL HGB (test code=MCH) 27.1 picogram 27.0-33.0 MEAN CELL HGB CONCETRATION (test code=MCHC) 32.7 gram/dL 33.0-36.0 RED CELL DISTRIBUTION WIDTH (test code=RDW) 14.5 % 11.6-16.2 RED CELL DISTRIBUTION WIDTH SD (test code=RDW-SD) 43.5 fL 37.0-51.0 PLATELET COUNT (test code=PLT) 400 K/mm3 150-450 MEAN PLATELET VOLUME (test code=MPV) 9.2 fL 6.7-11.0 NEUTROPHIL % (test code=NT%) 79.3 % 39.0-69.0 IMMATURE GRANULOCYTE % (test code=IG%) 0.7 % 0.0-5.0 LYMPHOCYTE % (test code=LY%) 10.7 % 25.0-55.0 MONOCYTE % (test code=MO%) 8.3 % 0.0-10.0 EOSINOPHIL % (test code=EO%) 0.7 % 0.0-5.0 BASOPHIL % (test code=BA%) 0.3 % 0.0-1.0 NUCLEATED RBC % (test code=NRBC%) 0.0 % 0-0 NEUTROPHIL # (test code=NT#) 11.60 K/mm3 1.8-7.7 IMMATURE GRANULOCYTE # (test code=IG#) 0.10 x10 3/uL 0-0.03 LYMPHOCYTE # (test code=LY#) 1.57 K/mm3 1.0-5.0 MONOCYTE # (test code=MO#) 1.21 K/mm3 0-0.8 EOSINOPHIL # (test code=EO#) 0.10 K/mm3 0.0-0.5 BASOPHIL # (test code=BA#) 0.05 K/mm3 0.0-0.2 NUCLEATED RBC # (test code=NRBC#) 0.00 K/mm3 0.0-0.1 [id number] 21:02:00* Test Item Value Reference Range Comments GLUBED (test code=GLUBED) 279 mg/dL 74-106 Performed by certified upsetting machine operator at [facility] [id number] 16:47:00* Test Item Value Reference Range Comments GLUBED (test code=GLUBED) 238 mg/dL 74-106 Performed by certified upsetting machine operator at [facility] - SP THORACENTESIS [id number] 15:10:00 Name: RENE PALMA [facility]. SP : 1955 Age/S: 62 / M [age] [address] [facility] Unit #: [id number] Loc: [place] [address] Phys: Polo Salgado MD Acct: [id number] Dis Date: Status: ADM IN PHONE #: [phone] Exam Date: 05/04/2018 4378 FAX #: [phone] Reason: EXAMS: CPT CODE: [id number] SP THORACENTESIS [id number] Fluoro Time: 0 DAP (Gy m2): 0 Air Kerma (mGy): 0 EXAM: Ultrasound-guided thoracentesis; INFORMATION: Sepsis, pneumonia; anemia, chest pain; TECHNIQUE AND FINDINGS: Informed consent was obtained and the patient was placed in upright sitting position. Ultrasound of the chest confirmed bilateral pleural effusions, right greater than left. The patient's skin in the right posterior inferior chest region was prepped and draped in the usual sterile fashion. Xylocaine was administered and using sonographic guidance an 8-Icelandic pigtail catheter was inserted into the right pleural cavity. 1650 mL of clear yellowish pleural fluid were drained and samples were sent to the lab. The drainage catheter was then removed No complications. IMPRESSION: Successful ultrasound-guided large-volume right-sided thoracentesis. Electronically Sign ed by Genaro Ovalle on 05/06/2018 at 1510 Reported and signed by: Clem Ovalle M.D. CC: Polo Salgado MD Technologist: Taylor SHAFER(R) Trnscb Date /Time: 05/06/2018 (1510) IlanaGRW Orig Print D/T: S: (8995) PAGE 1 Signed Report [id number] 12:11:00* Test Item Value Reference Range Comments GLUBED (test code=GLUBED) 241 mg/dL 74-106 Performed by certified upsetting machine operator at [facility] [id number] 08:24:00* Test Item Value Reference Range Comments GLUBED (test code=GLUBED) 178 mg/dL 74-106 Performed by certified upsetting machine operator at [facility] BASIC METABOLIC [id number] 05:33:00* Test Item Value Reference Range Comments SODIUM (test code=NA) 136 mmol/L 136-145 POTASSIUM (test code=K) 3.1 mmol/L 3.5-5.1 CHLORIDE (test code=CL) 106.0 mmol/L 98-107 CARBON DIOXIDE (test code=CO2) 19.0 mmol/L 21-32 ANION GAP (test code=GAP) 14.1 10-20 GLUCOSE (test code=GLU) 173 mg/dL 74-106 BLOOD UREA NITROGEN (test code=BUN) 83 mg/dL 7-18 GLOMERULAR FILTRATION RATE (test code=GFR) 18 mL/min >=60 Estimated GFR by using Modified MDRD formula.Chronic kidney disease is defined as either kidney damageor GFR <60 mL/min/1.73 m2 for >3 months. CREATININE (test code=CREAT) 3.50 mg/dL 0.7-1.3 BUN/CREATININE RATIO (test code=BUN/CREA) 23.9 10-20 CALCIUM (test code=CA) 7.6 mg/dL 8.5-10.1 CBC W/O [id number] 05:24:00* Test Item Value Reference Range Comments WHITE BLOOD CELL (test code=WBC) 17.0 K/mm3 4.5-12.5 RED BLOOD CELL (test code=RBC) 2.92 mill/mm3 4.0-5.8 HEMOGLOBIN (test code=HGB) 7.8 gram/dL 13.0-17.5 HEMATOCRIT (test code=HCT) 24.7 % 42.0-52.0 MEAN CELL VOLUME (test code=MCV) 84.6 fL 80-98 MEAN CELL HGB (test code=MCH) 26.7 picogram 27.0-33.0 MEAN CELL HGB CONCETRATION (test code=MCHC) 31.6 gram/dL 33.0-36.0 RED CELL DISTRIBUTION WIDTH (test code=RDW) 14.5 % 11.6-16.2 PLATELET COUNT (test code=PLT) 387 K/mm3 150-450 MEAN PLATELET VOLUME (test code=MPV) 9.6 fL 6.7-11.0 BASIC METABOLIC [id number] 05:23:00* Test Item Value Reference Range Comments SODIUM (test code=NA) 136 mmol/L 136-145 POTASSIUM (test code=K) 3.1 mmol/L 3.5-5.1 CHLORIDE (test code=CL) 106.0 mmol/L 98-107 CARBON DIOXIDE (test code=CO2) mmol/L 21-32 ANION GAP (test code=GAP) 10-20 GLUCOSE (test code=GLU) mg/dL 74-106 BLOOD UREA NITROGEN (test code=BUN) mg/dL 7-18 GLOMERULAR FILTRATION RATE (test code=GFR) mL/min >=60 CREATININE (test code=CREAT) mg/dL 0.7-1.3 BUN/CREATININE RATIO (test code=BUN/CREA) 10-20 CALCIUM (test code=CA) mg/dL 8.5-10.1 [id number] 21:02:00* Test Item Value Reference Range Comments GLUBED (test code=GLUBED) 144 mg/dL 74-106 Performed by certified upsetting machine operator at [facility] [id number] 19:06:00* Test Item Value Reference Range Comments GLUBED (test code=GLUBED) 200 mg/dL 74-106 Performed by certified upsetting machine operator at [facility] - US RETRO [id number] 12:38:00 Name: RENE PALMA [facility] : 1955 Age/S: 62 / M [address] [facility] Unit #: [id number] Loc: [place] [address] Phys: Jolie Dutta MD Acct: [id number] Dis Date: Status: ADM IN PHONE #: [phone] Exam Date: 05/05/2018 1002 FAX #: [phone] Reason: tyler EXAMS: CPT CODE: [id number] US RETRO LTD 61838 EXAM: Ultrasound retroperitoneum, limited; INFORMATION: Sepsis, pneumonia; chronic kidney disease; creatinine 3.5; FINDINGS: The kidneys are of normal size and shape; no hydronephrosis, no stones and no parenchymal abnormalities. The right kidney measures 10.9 x 5.6 x 4.9 cm, with a parenchymal thickness of 1.5 cm. The left kidney measures 11.5 5.6 x 5.4 cm, with a parenchymal thickness of 4.2 cm. The urinary bladder is unremarkable; bilateral ureteral jets are identified. No pleural effusions are noticed bilaterally. IMPRESSION: 1. Unremarkable renal ultrasound; no evidence of hydronephrosis or other pathological changes. 2. Small pleural effusions. at 1238 Reported and signed by: Clem Ovalle M.D. CC: Jolie Dutta MD; Polo Salgado MD Technologist: MARGUERITE MONZON Trnscb Date/Time: 05/05/2018 (1167) Espinoza Orig Print D/T: S: 05/05/2018 (2939) Probe: PAGE 1 Signed Report [id number] 11:45:00* Test Item Value Reference Range Comments GLUBED (test code=GLUBED) 366 mg/dL 74-106 Performed by certified upsetting machine operator at [facility] UR PROTEIN/CREATININE [id number] 11:18:00* Test Item Value Reference Range Comments UR PROTEIN RANDOM (test code=PROTU) 168.4 mg/dL 0.0-11.9 Protein levels may be falsely elevated in patients withelevated level of aminoglycoside antibiotics in CSF and inhighly concentrated urine specimens. If false elevation issuspected, contact lab for alternated testing technique. UR CREATININE RANDOM (test code=CREATU) 20.0 mg/dL 30-125 PROTEIN/CREATININE RATIO (test code=P/CRATIO) 8.42 RATIO 0.0-0.20 [id number] 08:29:00* Test Item Value Reference Range Comments GLUBED (test code=GLUBED) 314 mg/dL 74-106 Performed by certified upsetting machine operator at [facility] [id number] 05:58:00* Test Item Value Reference Range Comments GLYCOSYLATED HEMOGLOBIN (HA1C) (test code=GLYHGB) 8.1 % HbA1 4.8-6.0 ESTIMATED AVERAGE GLUCOSE (test code=EAG) 186 MG/DL BASIC METABOLIC [id number] 05:40:00* Test Item Value Reference Range Comments SODIUM (test code=NA) 136 mmol/L 136-145 POTASSIUM (test code=K) 3.4 mmol/L 3.5-5.1 CHLORIDE (test code=CL) 105.0 mmol/L 98-107 CARBON DIOXIDE (test code=CO2) mmol/L 21-32 ANION GAP (test code=GAP) 10-20 GLUCOSE (test code=GLU) mg/dL 74-106 BLOOD UREA NITROGEN (test code=BUN) mg/dL 7-18 GLOMERULAR FILTRATION RATE (test code=GFR) mL/min >=60 CREATININE (test code=CREAT) mg/dL 0.7-1.3 BUN/CREATININE RATIO (test code=BUN/CREA) 10-20 CALCIUM (test code=CA) mg/dL 8.5-10.1 BASIC METABOLIC [id number] 05:40:00* Test Item Value Reference Range Comments SODIUM (test code=NA) 136 mmol/L 136-145 POTASSIUM (test code=K) 3.4 mmol/L 3.5-5.1 CHLORIDE (test code=CL) 105.0 mmol/L 98-107 CARBON DIOXIDE (test code=CO2) 16.0 mmol/L 21-32 ANION GAP (test code=GAP) 18.4 10-20 GLUCOSE (test code=GLU) 297 mg/dL 74-106 BLOOD UREA NITROGEN (test code=BUN) 87 mg/dL 7-18 GLOMERULAR FILTRATION RATE (test code=GFR) 18 mL/min >=60 Estimated GFR by using Modified MDRD formula.Chronic kidney disease is defined as either kidney damageor GFR <60 mL/min/1.73 m2 for >3 months. CREATININE (test code=CREAT) 3.50 mg/dL 0.7-1.3 BUN/CREATININE RATIO (test code=BUN/CREA) 24.8 10-20 CALCIUM (test code=CA) 7.6 mg/dL 8.5-10.1 CBC W/AUTO [id number] 05:37:00* Test Item Value Reference Range Comments WHITE BLOOD CELL (test code=WBC) 17.1 K/mm3 4.5-12.5 RED BLOOD CELL (test code=RBC) 2.90 mill/mm3 4.0-5.8 HEMOGLOBIN (test code=HGB) 7.8 gram/dL 13.0-17.5 HEMATOCRIT (test code=HCT) 24.9 % 42.0-52.0 MEAN CELL VOLUME (test code=MCV) 85.9 fL 80-98 MEAN CELL HGB (test code=MCH) 26.9 picogram 27.0-33.0 MEAN CELL HGB CONCETRATION (test code=MCHC) 31.3 gram/dL 33.0-36.0 RED CELL DISTRIBUTION WIDTH (test code=RDW) 14.8 % 11.6-16.2 RED CELL DISTRIBUTION WIDTH SD (test code=RDW-SD) 46.0 fL 37.0-51.0 PLATELET COUNT (test code=PLT) 427 K/mm3 150-450 RESULT VERIFIED BY REPEAT ANALYSIS MEAN PLATELET VOLUME (test code=MPV) 9.2 fL 6.7-11.0 NEUTROPHIL % (test code=NT%) 84.3 % 39.0-69.0 IMMATURE GRANULOCYTE % (test code=IG%) 0.8 % 0.0-5.0 LYMPHOCYTE % (test code=LY%) 8.8 % 25.0-55.0 MONOCYTE % (test code=MO%) 5.3 % 0.0-10.0 EOSINOPHIL % (test code=EO%) 0.6 % 0.0-5.0 BASOPHIL % (test code=BA%) 0.2 % 0.0-1.0 NUCLEATED RBC % (test code=NRBC%) 0.0 % 0-0 NEUTROPHIL # (test code=NT#) 14.43 K/mm3 1.8-7.7 IMMATURE GRANULOCYTE # (test code=IG#) 0.14 x10 3/uL 0-0.03 LYMPHOCYTE # (test code=LY#) 1.50 K/mm3 1.0-5.0 MONOCYTE # (test code=MO#) 0.91 K/mm3 0-0.8 EOSINOPHIL # (test code=EO#) 0.11 K/mm3 0.0-0.5 BASOPHIL # (test code=BA#) 0.04 K/mm3 0.0-0.2 NUCLEATED RBC # (test code=NRBC#) 0.00 K/mm3 0.0-0.1 HGB [id number] 01:20:00* Test Item Value Reference Range Comments HEMOGLOBIN (test code=HGB) 7.6 gram/dL 13.0-17.5 HEMATOCRIT (test code=HCT) 24.2 % 42.0-52.0 [id number] 21:14:00* Test Item Value Reference Range Comments GLUBED (test code=GLUBED) 240 mg/dL 74-106 Performed by certified upsetting machine operator at [facility] PLEURAL FLD CELL [id number] 21:13:00* Test Item Value Reference Range Comments FLUID WBC AUTO (test code=WBCFLA) 132 cells/uL FLUID RBC AUTO (test code=RBCFLA) 0 cells/uL FLUID TOTAL CELLS (test code=TCFL) 172 cells/uL >0 Fluid WBC RBC PMN% MN%Type cells/uL cells/uL CSF (0-5) n/a (2+/-4) (90+/-20)Peritoneal n/a n/a n/a n/aPleural n/a n/a n/a n/aSynovial <200 n/a <25% <75% CSF (0-30) n/a (4+/-4) (90+/-20) PLEURAL FLD COLOR (test code=COLPL) YELLOW LIGHT YELLOW PLEURAL FLD APPEARANCE (test code=APPPL) HAZY PLEURAL FLD POLY (test code=POLYPL) 67.0 % PLEURAL FLD LYMPHOCYTE (test code=LYMPHPL) 8.0 % PLEURAL FLD MACROPHAGE (test code=MACPL) 6.0 % PLEURAL FLD OTHER CELL (test code=OTHERPL) 19 % TOTAL CELLS COUNTED ON DIFF (test code=TOTCELLFL) 100 cells REVIEWED BY (test code=REVIEW) PATHOLOGIST SPECIMEN COMMENTS: RIGHT PLEURAL FLUIDPLEURAL FLD [id number] 21:13:00* Test Item Value Reference Range Comments PLEURAL FLD PH (test code=PHPL) 7.0 SPECIMEN COMMENTS: RIGHT PLEURAL FLUIDPLEURAL FLD [id number] 21:13:00* Test Item Value Reference Range Comments PLEURAL FLD GLUCOSE (test code=GLUPL) 275 MG/DL SPECIMEN COMMENTS: RIGHT PLEURAL FLUIDPLEURAL FLD TOTAL [id number] 21:13:00* Test Item Value Reference Range Comments PLEURAL FLD TOTAL PROTEIN (test code=PROTPL) 1.1 gram/dL SPECIMEN COMMENTS: RIGHT PLEURAL FLUIDPLEURAL FLD [id number] 21:13:00* Test Item Value Reference Range Comments PLEURAL FLD ALBUMIN (test code=ALBPL) 0.4 gram/dL SPECIMEN COMMENTS: RIGHT PLEURAL FLUIDPLEURAL FLD [id number] 21:13:00* Test Item Value Reference Range Comments PLEURAL FLD LDH (test code=LDHPL) 78 IUnit/L SPECIMEN COMMENTS: RIGHT PLEURAL FLUIDPLEURAL FLD CELL [id number] 21:04:00* Test Item Value Reference Range Comments FLUID WBC AUTO (test code=WBCFLA) 132 cells/uL FLUID RBC AUTO (test code=RBCFLA) 0 cells/uL FLUID TOTAL CELLS (test code=TCFL) 172 cells/uL >0 Fluid WBC RBC PMN% MN%Type cells/uL cells/uL CSF (0-5) n/a (2+/-4) (90+/-20)Peritoneal n/a n/a n/a n/aPleural n/a n/a n/a n/aSynovial <200 n/a <25% <75% CSF (0-30) n/a (4+/-4) (90+/-20) PLEURAL FLD COLOR (test code=COLPL) YELLOW LIGHT YELLOW PLEURAL FLD APPEARANCE (test code=APPPL) HAZY PLEURAL FLD POLY (test code=POLYPL) 67.0 % PLEURAL FLD LYMPHOCYTE (test code=LYMPHPL) 8.0 % PLEURAL FLD MACROPHAGE (test code=MACPL) 6.0 % PLEURAL FLD OTHER CELL (test code=OTHERPL) 19 % TOTAL CELLS COUNTED ON DIFF (test code=TOTCELLFL) 100 cells REVIEWED BY (test code=REVIEW) PATHOLOGIST SPECIMEN COMMENTS: RIGHT PLEURAL FLUIDPLEURAL FLD [id number] 21:04:00* Test Item Value Reference Range Comments PLEURAL FLD PH (test code=PHPL) SPECIMEN COMMENTS: RIGHT PLEURAL FLUIDPLEURAL FLD [id number] 21:04:00* Test Item Value Reference Range Comments PLEURAL FLD GLUCOSE (test code=GLUPL) 275 MG/DL SPECIMEN COMMENTS: RIGHT PLEURAL FLUIDPLEURAL FLD TOTAL [id number] 21:04:00* Test Item Value Reference Range Comments PLEURAL FLD TOTAL PROTEIN (test code=PROTPL) 1.1 gram/dL SPECIMEN COMMENTS: RIGHT PLEURAL FLUIDPLEURAL FLD [id number] 21:04:00* Test Item Value Reference Range Comments PLEURAL FLD ALBUMIN (test code=ALBPL) 0.4 gram/dL SPECIMEN COMMENTS: RIGHT PLEURAL FLUIDPLEURAL FLD [id number] 21:04:00* Test Item Value Reference Range Comments PLEURAL FLD LDH (test code=LDHPL) 78 IUnit/L SPECIMEN COMMENTS: RIGHT PLEURAL FLUIDPLEURAL FLD CELL [id number] 19:22:00* Test Item Value Reference Range Comments FLUID WBC AUTO (test code=WBCFLA) 132 cells/uL FLUID RBC AUTO (test code=RBCFLA) 0 cells/uL FLUID TOTAL CELLS (test code=TCFL) 172 cells/uL >0 Fluid WBC RBC PMN% MN%Type cells/uL cells/uL CSF (0-5) n/a (2+/-4) (90+/-20)Peritoneal n/a n/a n/a n/aPleural n/a n/a n/a n/aSynovial <200 n/a <25% <75% CSF (0-30) n/a (4+/-4) (90+/-20) PLEURAL FLD COLOR (test code=COLPL) YELLOW LIGHT YELLOW PLEURAL FLD APPEARANCE (test code=APPPL) HAZY TOTAL CELLS COUNTED ON DIFF (test code=TOTCELLFL) cells REVIEWED BY (test code=REVIEW) PATHOLOGIST SPECIMEN COMMENTS: RIGHT PLEURAL FLUIDPLEURAL FLD [id number] 19:22:00* Test Item Value Reference Range Comments PLEURAL FLD PH (test code=PHPL) SPECIMEN COMMENTS: RIGHT PLEURAL FLUIDPLEURAL FLD [id number] 19:22:00* Test Item Value Reference Range Comments PLEURAL FLD GLUCOSE (test code=GLUPL) 275 MG/DL SPECIMEN COMMENTS: RIGHT PLEURAL FLUIDPLEURAL FLD TOTAL [id number] 19:22:00* Test Item Value Reference Range Comments PLEURAL FLD TOTAL PROTEIN (test code=PROTPL) 1.1 gram/dL SPECIMEN COMMENTS: RIGHT PLEURAL FLUIDPLEURAL FLD [id number] 19:22:00* Test Item Value Reference Range Comments PLEURAL FLD ALBUMIN (test code=ALBPL) 0.4 gram/dL SPECIMEN COMMENTS: RIGHT PLEURAL FLUIDPLEURAL FLD [id number] 19:22:00* Test Item Value Reference Range Comments PLEURAL FLD LDH (test code=LDHPL) 78 IUnit/L SPECIMEN COMMENTS: RIGHT PLEURAL FLUIDPLEURAL FLD CELL [id number] 19:11:00* Test Item Value Reference Range Comments FLUID WBC AUTO (test code=WBCFLA) 132 cells/uL FLUID RBC AUTO (test code=RBCFLA) 0 cells/uL FLUID TOTAL CELLS (test code=TCFL) 172 cells/uL >0 Fluid WBC RBC PMN% MN%Type cells/uL cells/uL CSF (0-5) n/a (2+/-4) (90+/-20)Peritoneal n/a n/a n/a n/aPleural n/a n/a n/a n/aSynovial <200 n/a <25% <75% CSF (0-30) n/a (4+/-4) (90+/-20) PLEURAL FLD COLOR (test code=COLPL) YELLOW LIGHT YELLOW PLEURAL FLD APPEARANCE (test code=APPPL) HAZY TOTAL CELLS COUNTED ON DIFF (test code=TOTCELLFL) cells REVIEWED BY (test code=REVIEW) PATHOLOGIST SPECIMEN COMMENTS: RIGHT PLEURAL FLUIDPLEURAL FLD [id number] 19:11:00* Test Item Value Reference Range Comments PLEURAL FLD PH (test code=PHPL) SPECIMEN COMMENTS: RIGHT PLEURAL FLUIDPLEURAL FLD [id number] 19:11:00* Test Item Value Reference Range Comments PLEURAL FLD GLUCOSE (test code=GLUPL) 275 MG/DL SPECIMEN COMMENTS: RIGHT PLEURAL FLUIDPLEURAL FLD TOTAL [id number] 19:11:00* Test Item Value Reference Range Comments PLEURAL FLD TOTAL PROTEIN (test code=PROTPL) 1.1 gram/dL SPECIMEN COMMENTS: RIGHT PLEURAL FLUIDPLEURAL FLD [id number] 19:11:00* Test Item Value Reference Range Comments PLEURAL FLD ALBUMIN (test code=ALBPL) gram/dL SPECIMEN COMMENTS: RIGHT PLEURAL FLUIDPLEURAL FLD [id number] 19:11:00* Test Item Value Reference Range Comments PLEURAL FLD LDH (test code=LDHPL) 78 IUnit/L SPECIMEN COMMENTS: RIGHT PLEURAL FLUIDPLEURAL FLD CELL [id number] 19:03:00* Test Item Value Reference Range Comments FLUID WBC AUTO (test code=WBCFLA) 132 cells/uL FLUID RBC AUTO (test code=RBCFLA) 0 cells/uL FLUID TOTAL CELLS (test code=TCFL) 172 cells/uL >0 Fluid WBC RBC PMN% MN%Type cells/uL cells/uL CSF (0-5) n/a (2+/-4) (90+/-20)Peritoneal n/a n/a n/a n/aPleural n/a n/a n/a n/aSynovial <200 n/a <25% <75% CSF (0-30) n/a (4+/-4) (90+/-20) PLEURAL FLD COLOR (test code=COLPL) YELLOW LIGHT YELLOW PLEURAL FLD APPEARANCE (test code=APPPL) HAZY TOTAL CELLS COUNTED ON DIFF (test code=TOTCELLFL) cells REVIEWED BY (test code=REVIEW) PATHOLOGIST SPECIMEN COMMENTS: RIGHT PLEURAL FLUIDPLEURAL FLD [id number] 19:03:00* Test Item Value Reference Range Comments PLEURAL FLD PH (test code=PHPL) SPECIMEN COMMENTS: RIGHT PLEURAL FLUIDPLEURAL FLD [id number] 19:03:00* Test Item Value Reference Range Comments PLEURAL FLD GLUCOSE (test code=GLUPL) MG/DL SPECIMEN COMMENTS: RIGHT PLEURAL FLUIDPLEURAL FLD TOTAL [id number] 19:03:00* Test Item Value Reference Range Comments PLEURAL FLD TOTAL PROTEIN (test code=PROTPL) gram/dL SPECIMEN COMMENTS: RIGHT PLEURAL FLUIDPLEURAL FLD [id number] 19:03:00* Test Item Value Reference Range Comments PLEURAL FLD ALBUMIN (test code=ALBPL) gram/dL SPECIMEN COMMENTS: RIGHT PLEURAL FLUIDPLEURAL FLD [id number] 19:03:00* Test Item Value Reference Range Comments PLEURAL FLD LDH (test code=LDHPL) IUnit/L SPECIMEN COMMENTS: RIGHT PLEURAL FLUIDPLEURAL FLD CELL [id number] 18:57:00* Test Item Value Reference Range Comments FLUID WBC AUTO (test code=WBCFLA) 132 cells/uL FLUID RBC AUTO (test code=RBCFLA) 0 cells/uL FLUID TOTAL CELLS (test code=TCFL) 172 cells/uL >0 Fluid WBC RBC PMN% MN%Type cells/uL cells/uL CSF (0-5) n/a (2+/-4) (90+/-20)Peritoneal n/a n/a n/a n/aPleural n/a n/a n/a n/aSynovial <200 n/a <25% <75% CSF (0-30) n/a (4+/-4) (90+/-20) PLEURAL FLD COLOR (test code=COLPL) PLEURAL FLD APPEARANCE (test code=APPPL) PLEURAL FLD WBC (test code=WBCPL) per uL 0-1000 PLEURAL FLD RBC (test code=RBCPL) per uL 0-50 TOTAL CELLS COUNTED ON DIFF (test code=TOTCELLFL) cells REVIEWED BY (test code=REVIEW) PATHOLOGIST SPECIMEN COMMENTS: RIGHT PLEURAL FLUIDPLEURAL FLD [id number] 18:57:00* Test Item Value Reference Range Comments PLEURAL FLD PH (test code=PHPL) SPECIMEN COMMENTS: RIGHT PLEURAL FLUIDPLEURAL FLD [id number] 18:57:00* Test Item Value Reference Range Comments PLEURAL FLD GLUCOSE (test code=GLUPL) MG/DL SPECIMEN COMMENTS: RIGHT PLEURAL FLUIDPLEURAL FLD TOTAL [id number] 18:57:00* Test Item Value Reference Range Comments PLEURAL FLD TOTAL PROTEIN (test code=PROTPL) gram/dL SPECIMEN COMMENTS: RIGHT PLEURAL FLUIDPLEURAL FLD [id number] 18:57:00* Test Item Value Reference Range Comments PLEURAL FLD ALBUMIN (test code=ALBPL) gram/dL SPECIMEN COMMENTS: RIGHT PLEURAL FLUIDPLEURAL FLD [id number] 18:57:00* Test Item Value Reference Range Comments PLEURAL FLD LDH (test code=LDHPL) IUnit/L SPECIMEN COMMENTS: RIGHT PLEURAL FLUID- XR CHEST 1 [id number] 18:08:00 FAX: Polo Salgado [phone] [place]: B St: ADM Name: RENE GALVAN [facility] : [birth year] Age/S: 62/M [address] [facility] Unit #: [id number] Loc: V.4032 [place] [address] Phys: Clem Ovalle MD Acct: [id number] Dis Date: Status: ADM IN PHONE #: [phone] Exam Date: 05/04/2018 1806 FAX #: [phone] Reason: CKD; SOB; pleural effusions; st.p. R thoracente EXAMS: CPT CODE: [id number] XR CHEST 1 V 12486 REASON FOR EXAM: CKD; SOB; pleural effusions; st.p. R thoracentesis; EXAM ORDER DATE: 019 5:46 PM Ordering MIvette: Clem Ovalle MD [place] OCEDURE: - XR CHEST 1 V COMPARISON: 05/04/2018 at 8:33 AM FINDINGS: Portable AP frontal view of the chest obtained at 6:05 PM shows the heart size is minimally enlarged. Pulmonary vasculatures are un remarkable. IMPRESSION: Resolution of the right pleural effusio n status post thoracentesis without evidence of pneumothorax. * * at 1808 Reported and signed by: Khoa Rock M.D. CC: Polo Alex Si, MD Technologist: RT Macho(R Trnscrd Date/Time/By: 05/04/2018 (1807) : By: IlanaVTL Orig Print D/T: S: 05/04/2018 (1810) PAGE 1 Signed Report SERUM [id number] 16:30:00* Test Item Value Reference Range Comments SERUM IRON (test code=IRON) 13 ug/dL 50-175 VITAMIN [id number] 16:30:00* Test Item Value Reference Range Comments VITAMIN B12 (test code=VITB12) 1567 pg/mL 193-986 FOLIC [id number] 16:30:00* Test Item Value Reference Range Comments FOLIC ACID (test code=FOL) 15.1 ng/mL 3.10-17.50 [id number] 16:30:00* Test Item Value Reference Range Comments FERRITIN (test code=MERY) 222 ng/mL 8-388 UR NA,[id number] 16:03:00* Test Item Value Reference Range Comments UR NA,RANDOM (test code=SYLVIA) 11 mmol/L 20-110 - CT CHEST W/O [id number] 14:06:00 Name: RENE PALMA [facility] : 1955 Age/S: 62 / M [address] Unit #: [id number] Loc: [place] [address] Phys: Polo Salgado MD Acct: [id number] Dis Date: Status: ADM IN PHONE #: [phone] Exam Date: 05/04/2018 1352 FAX #: [phone] Reason: PNEUMONIA EXAMS: CPT CODE: [id number] CT CHEST W/O CONTRAST [id number] REASON FOR EXAM: PNEUMONIA EXAM ORDER DATE: 05/04/2018 11:49 AM Ordering M.Pina.: Polo Pina MD PROCEDURE: - CT CHEST W/O CONTRAST FINDINGS: CT images of the chest were obtained without IV contrast. Reconstructed sagittal and coronal images of the chest were provided for interpretation. Dose reduction techniques were applied. The heart size is within normal limits. The thoracic aorta is unremarkable. No evidence of mediastinal or hilar adenopathy IMPRESSION: 1. Small pericardial effusion 2. Large bilateral pleural effusions larger on the right with dependent atelectasis of the lung bases. Nonspecific vague patchy opacity of the left upper lobe suggestive of atelectasis at 1406 Reported and signed by: Khoa Rock M.D. CC: Polo Salgado MD Technologist:Rose SHAFER(R)(CT) CTDI: DLP: Trnscb Date/Time: 05/04/2018 (1406) [email or web address] Orig Print D/T: S: 05/04/2018 (1402) CTDI: DLP: PAGE 1 Signed Report [id number] 14:05:00* Test Item Value Reference Range Comments TROPONIN-I (test code=TROPI) 0.016 ng/mL 0-0.045 COMMENTS TO SALESPERSON MEATS: COLLECT 3 HOURS AFTER PREVIOUS SAMPLEURINALYSIS [id number] 13:43:00* Test Item Value Reference Range Comments UA COLOR (test code=COLU) YELLOW YELLOW UA APPEARANCE (test code=APPU) SLIGHTLY CLOUDY CLEAR UA GLUCOSE DIPSTICK (test code=DGLUU) >=500 mg/dL NEGATIVE UA BILIRUBIN DIPSTICK (test code=BILU) NEGATIVE mg/dL NEGATIVE UA KETONE DIPSTICK (test code=KETU) 5 (Trace) mg/dL NEGATIVE UA SPECIFIC GRAVITY (test code=SGU) 1.013 1.001-1.035 UA BLOOD DIPSTICK (test code=KEREN) 1+ (Small) NEGATIVE UA PH DIPSTICK (test code=PABLO) 5.0 5.0-8.0 UA PROTEIN DIPSTICK (test code=PROU) >500 (3+) mg/dL NEGATIVE UA UROBILINIOGEN DIPSTICK (test code=URO) NEGATIVE mg/dL NEGATIVE UA NITRITE DIPSTICK (test code=MARY) NEGATIVE NEGATIVE UA LEUKOCYTE ESTERASE W REFLEX (test code=LEUUR) NEGATIVE NEGATIVE UA WBC (test code=WBCU) 0-5 #/HPF 0-5 UA RBC (test code=RBCU) 3-5 #/HPF 0-5 UA EPITHELIAL CELLS (test code=EPIU) FEW per HPF FEW UA BACTERIA (test code=BACU) FEW #/HPF NONE Urine Source? Clean CatchUR PROTEIN/CREATININE [id number] 13:43:00* Test Item Value Reference Range Comments UR PROTEIN RANDOM (test code=PROTU) 451.2 mg/dL 0.0-11.9 Protein levels may be falsely elevated in patients withelevated level of aminoglycoside antibiotics in CSF and inhighly concentrated urine specimens. If false elevation issuspected, contact lab for alternated testing technique. UR CREATININE RANDOM (test code=CREATU) 60.0 mg/dL 30-125 PROTEIN/CREATININE RATIO (test code=P/CRATIO) 7.52 RATIO 0.0-0.20 Urine Source? Clean CatchURINALYSIS [id number] 13:28:00* Test Item Value Reference Range Comments UA COLOR (test code=COLU) YELLOW YELLOW UA APPEARANCE (test code=APPU) SLIGHTLY CLOUDY CLEAR UA GLUCOSE DIPSTICK (test code=DGLUU) >=500 mg/dL NEGATIVE UA BILIRUBIN DIPSTICK (test code=BILU) NEGATIVE mg/dL NEGATIVE UA KETONE DIPSTICK (test code=KETU) 5 (Trace) mg/dL NEGATIVE UA SPECIFIC GRAVITY (test code=SGU) 1.013 1.001-1.035 UA BLOOD DIPSTICK (test code=KEREN) 1+ (Small) NEGATIVE UA PH DIPSTICK (test code=PABLO) 5.0 5.0-8.0 UA PROTEIN DIPSTICK (test code=PROU) >500 (3+) mg/dL NEGATIVE UA UROBILINIOGEN DIPSTICK (test code=URO) NEGATIVE mg/dL NEGATIVE UA NITRITE DIPSTICK (test code=MARY) NEGATIVE NEGATIVE UA LEUKOCYTE ESTERASE W REFLEX (test code=LEUUR) NEGATIVE NEGATIVE UA WBC (test code=WBCU) 0-5 #/HPF 0-5 UA RBC (test code=RBCU) 3-5 #/HPF 0-5 UA EPITHELIAL CELLS (test code=EPIU) FEW per HPF FEW UA BACTERIA (test code=BACU) FEW #/HPF NONE Urine Source? Clean CatchUR PROTEIN/CREATININE [id number] 13:28:00* Test Item Value Reference Range Comments UR PROTEIN RANDOM (test code=PROTU) mg/dL 0.0-11.9 UR CREATININE RANDOM (test code=CREATU) mg/dL 30-125 PROTEIN/CREATININE RATIO (test code=P/CRATIO) RATIO 0.0-0.20 Urine Source? Clean CatchURINALYSIS [id number] 13:25:00* Test Item Value Reference Range Comments UA COLOR (test code=COLU) YELLOW YELLOW UA APPEARANCE (test code=APPU) SLIGHTLY CLOUDY CLEAR UA GLUCOSE DIPSTICK (test code=DGLUU) >=500 mg/dL NEGATIVE UA BILIRUBIN DIPSTICK (test code=BILU) NEGATIVE mg/dL NEGATIVE UA KETONE DIPSTICK (test code=KETU) 5 (Trace) mg/dL NEGATIVE UA SPECIFIC GRAVITY (test code=SGU) 1.013 1.001-1.035 UA BLOOD DIPSTICK (test code=KEREN) 1+ (Small) NEGATIVE UA PH DIPSTICK (test code=PABLO) 5.0 5.0-8.0 UA PROTEIN DIPSTICK (test code=PROU) >500 (3+) mg/dL NEGATIVE UA UROBILINIOGEN DIPSTICK (test code=URO) NEGATIVE mg/dL NEGATIVE UA NITRITE DIPSTICK (test code=MARY) NEGATIVE NEGATIVE UA LEUKOCYTE ESTERASE W REFLEX (test code=LEUUR) NEGATIVE NEGATIVE UA WBC (test code=WBCU) 0-5 #/HPF 0-5 UA RBC (test code=RBCU) 3-5 #/HPF 0-5 UA EPITHELIAL CELLS (test code=EPIU) FEW per HPF FEW Urine Source? Clean CatchUR PROTEIN/CREATININE [id number] 13:25:00* Test Item Value Reference Range Comments UR PROTEIN RANDOM (test code=PROTU) mg/dL 0.0-11.9 UR CREATININE RANDOM (test code=CREATU) mg/dL 30-125 PROTEIN/CREATININE RATIO (test code=P/CRATIO) RATIO 0.0-0.20 Urine Source? Clean CatchURINALYSIS [id number] 13:22:00* Test Item Value Reference Range Comments UA COLOR (test code=COLU) YELLOW YELLOW UA APPEARANCE (test code=APPU) SLIGHTLY CLOUDY CLEAR UA GLUCOSE DIPSTICK (test code=DGLUU) >=500 mg/dL NEGATIVE UA BILIRUBIN DIPSTICK (test code=BILU) NEGATIVE mg/dL NEGATIVE UA KETONE DIPSTICK (test code=KETU) 5 (Trace) mg/dL NEGATIVE UA SPECIFIC GRAVITY (test code=SGU) 1.013 1.001-1.035 UA BLOOD DIPSTICK (test code=KEREN) 1+ (Small) NEGATIVE UA PH DIPSTICK (test code=PABLO) 5.0 5.0-8.0 UA PROTEIN DIPSTICK (test code=PROU) >500 (3+) mg/dL NEGATIVE UA UROBILINIOGEN DIPSTICK (test code=URO) NEGATIVE mg/dL NEGATIVE UA NITRITE DIPSTICK (test code=MARY) NEGATIVE NEGATIVE UA LEUKOCYTE ESTERASE W REFLEX (test code=LEUUR) NEGATIVE NEGATIVE UA WBC (test code=WBCU) per HPF 0-5 Urine Source? Clean CatchUR PROTEIN/CREATININE [id number] 13:22:00* Test Item Value Reference Range Comments UR PROTEIN RANDOM (test code=PROTU) mg/dL 0.0-11.9 UR CREATININE RANDOM (test code=CREATU) mg/dL 30-125 PROTEIN/CREATININE RATIO (test code=P/CRATIO) RATIO 0.0-0.20 Urine Source? Clean [id number] 12:32:00* Test Item Value Reference Range Comments TROPONIN-I (test code=TROPI) <0.015 ng/mL 0-0.045 COMMENTS TO SALESPERSON MEATS: COLLECT 3 HOURS AFTER PREVIOUS SAMPLEPROCALCITONIN (PCT)2018-05-04 10:40:00* Test Item Value Reference Range Comments PROCALCITONIN (PCT) (test code=PROCAL) 0.95 ng/ml Concentration Interpretation (ng/mL) <0.51 Sepsis is not likely. Local bacterial infection is possible. (LOW RISK for progression to Sepsis) 0.51 - 2.00 Sepsis is possible, but other conditions are known to elevate PCT as well. (MODERATE RISK for progression to Sepsis) > 2.00 Sepsis is likely, unless other causes are known. (HIGH RISK for progression to Severe Sepsis or Septic Shock) 10.00 High likelihood of Severe Sepsis or Septic or higher Shock. *Increased PCT levels may not always be related to systemic bacterial infection.*Low PCT levels do not automatically exclude the presence of bacterial infection.*All results should be interpreted taking into account the patients history. LACTIC [id number] 09:48:00* Test Item Value Reference Range Comments LACTIC ACID (test code=LACT) 0.8 mmol/L 0.4-1.9 B-TYPE NATRIURETIC [id number] 09:32:00* Test Item Value Reference Range Comments B-TYPE NATRIURETIC PEPTIDE (test code=BNP) 259.69 pgram/mL 0-100 POC LACTIC [id number] 09:14:00* Test Item Value Reference Range Comments POC LACTIC ACID (test code=POCLAC) 0.91 MMOL/L 0.4-2.2 BASIC METABOLIC [id number] 09:12:00* Test Item Value Reference Range Comments SODIUM (test code=NA) 136 mmol/L 136-145 POTASSIUM (test code=K) 3.7 mmol/L 3.5-5.1 CHLORIDE (test code=CL) 107.0 mmol/L 98-107 CARBON DIOXIDE (test code=CO2) 17.0 mmol/L 21-32 ANION GAP (test code=GAP) 15.7 10-20 GLUCOSE (test code=GLU) 261 mg/dL 74-106 BLOOD UREA NITROGEN (test code=BUN) 96 mg/dL 7-18 GLOMERULAR FILTRATION RATE (test code=GFR) 17 mL/min >=60 Estimated GFR by using Modified MDRD formula.Chronic kidney disease is defined as either kidney damageor GFR <60 mL/min/1.73 m2 for >3 months. CREATININE (test code=CREAT) 3.70 mg/dL 0.7-1.3 BUN/CREATININE RATIO (test code=BUN/CREA) 25.9 10-20 CALCIUM (test code=CA) 7.9 mg/dL 8.5-10.1 [id number] 09:12:00* Test Item Value Reference Range Comments TROPONIN-I (test code=TROPI) 0.017 ng/mL 0-0.045 HEPATIC FUNCTION [id number] 09:07:00* Test Item Value Reference Range Comments TOTAL PROTEIN (test code=PROT) 4.9 gram/dL 6.4-8.2 ALBUMIN (test code=ALB) 1.3 g/dL 3.4-5.0 GLOBULIN (test code=GLOB) 3.6 gram/dL 2.7-4.2 ALBUMIN/GLOBULIN RATIO (test code=A/G) 0.4 0.75-1.50 BILIRUBIN TOTAL (test code=BILT) 0.20 mg/dL 0.0-1.0 BILIRUBIN DIRECT (test code=BILD) 0.07 mg/dL 0.0-0.20 SGOT/AST (test code=AST) 21 IUnit/L 15-37 SGPT/ALT (test code=ALT) 29 IUnit/L 12-78 ALKALINE PHOSPHATASE TOTAL (test code=ALKP) 113 IUnit/L 45-117 Note change in reference range due to change in reagent. [id number] 09:07:00* Test Item Value Reference Range Comments LIPASE (test code=LIP) 61 U/L 73.0-393.0 [id number] 09:07:00* Test Item Value Reference Range Comments MAGNESIUM (test code=MAG) 2.6 mg/dL 1.8-2.4 BASIC METABOLIC [id number] 09:03:00* Test Item Value Reference Range Comments SODIUM (test code=NA) 136 mmol/L 136-145 POTASSIUM (test code=K) 3.7 mmol/L 3.5-5.1 CHLORIDE (test code=CL) 107.0 mmol/L 98-107 CARBON DIOXIDE (test code=CO2) mmol/L 21-32 ANION GAP (test code=GAP) 10-20 GLUCOSE (test code=GLU) mg/dL 74-106 BLOOD UREA NITROGEN (test code=BUN) mg/dL 7-18 GLOMERULAR FILTRATION RATE (test code=GFR) mL/min >=60 CREATININE (test code=CREAT) mg/dL 0.7-1.3 BUN/CREATININE RATIO (test code=BUN/CREA) 10-20 CALCIUM (test code=CA) 7.9 mg/dL 8.5-10.1 [id number] 09:03:00* Test Item Value Reference Range Comments TROPONIN-I (test code=TROPI) ng/mL 0-0.045 CBC W/O [id number] 08:53:00* Test Item Value Reference Range Comments WHITE BLOOD CELL (test code=WBC) 24.0 K/mm3 4.5-12.5 RED BLOOD CELL (test code=RBC) 2.51 mill/mm3 4.0-5.8 HEMOGLOBIN (test code=HGB) 6.7 gram/dL 13.0-17.5 HEMATOCRIT (test code=HCT) 21.3 % 42.0-52.0 Results called [facility] [id number] [facility] 05/04/18 0853Critical results verified and read back by Nurse? Y MEAN CELL VOLUME (test code=MCV) 84.9 fL 80-98 MEAN CELL HGB (test code=MCH) 26.7 picogram 27.0-33.0 MEAN CELL HGB CONCETRATION (test code=MCHC) 31.5 gram/dL 33.0-36.0 RED CELL DISTRIBUTION WIDTH (test code=RDW) 15.0 % 11.6-16.2 PLATELET COUNT (test code=PLT) 555 K/mm3 150-450 MEAN PLATELET VOLUME (test code=MPV) 8.9 fL 6.7-11.0 TROPONIN I [id number] 08:47:00* Test Item Value Reference Range Comments TROPONIN I RAPID (test code=TROPIRAP) 0.00 ng/mL <0.08 Please Note New Reference Range 0.00-0.079 ng/mL - Negative>or=0.08 ng/mL - Positive The use of serial sampling and testing protocol is arecommended practice.An elevated troponin level alone is often not sufficient fordiagnosis of myocardial infarction. Troponin results obtained by different assays may vary.Evaluation of the extent of myocardial damage based onincrease of troponin would be valid only if similarmethodology is used. - XR CHEST 1 [id number] 08:37:00 FAX: Kris Padilla [phone] [place]: St: REG Name: RENE GALVAN BABS [facility] : [birth year] 60 Age/S: 62/M [address] [facility] Unit #: [id number] Loc: [place] [address] Phys: Kris Pina MD Acct: [id number] Dis Date: Status: REG ER PHONE #: [phone] Exam Date: 05/04/2018 0835 FAX #: [phone] Reason: CHEST PAIN EXAMS: CPT CODE: [id number] XR CHEST 1 V 16216 HISTORY: Chest pain. COMPARISON: None available. Small bibasal effusions. Patchy right basal infiltrate with subsegmental atelectasis. Cardiomegaly. IMPRESSION: Patchy right basal infiltrate with small bi basal effusions. Electronically Signed by Genaro Bejarano on 05/04 at 0837 Reported and signed by: Erwin Bejarano M.D. CC: Kris Pina MD Technologist: Angeline Hess arrt; STUDENT TECHNOLOGIST Kevin cifuentes Date/Time/By: 05/04/2018 (0837) : By: [email or web address] Orig Print D/T: S: 05/04/2018 (0840) PAGE 1 Sign ed Report
[2018-07-30 20:14] LABS: BASOPHILS # (AUTO) 0.1 (0.0-0.1); BASOPHILS % 0.6 % (0.0-1.0); EOSINOPHILS # (AUTO) 0.2 (0.0-0.4); EOSINOPHILS % 1.3 % (0.0-6.0); HEMATOCRIT 26.7 % (38.2-49.6); HEMOGLOBIN 8.5 g/dL (14.0-18.0); LYMPHOCYTES # (AUTO) 3.2 (1.0-3.2); LYMPHOCYTES % 22.8 % (18.0-39.1); MEAN CORPUSCULAR HEMOGLOBIN 25.9 pg (28-32); MEAN CORPUSCULAR HGB CONC 31.8 g/dL (31-35); MEAN CORPUSCULAR VOLUME 81.4 fL (81-99); MONOCYTES # (AUTO) 0.7 (0.2-0.8); MONOCYTES % 4.9 % (4.4-11.3); NEUTROPHILS # (AUTO) 9.9 (2.1-6.9); NEUTROPHILS % 69.8 % (38.7-80.0); PLATELET COUNT 492 x10e3/uL (140-360); RED BLOOD COUNT 3.28 x10e6/uL (4.3-5.7); RED CELL DISTRIBUTION WIDTH 16.8 % (11.7-14.4)
[2018-07-30 20:18] LABS: INR 0.94; PROTHROMBIN TIME 13.1 seconds (11.9-14.5)
[2018-07-30 20:19] LABS: PARTIAL THROMBOPLASTIN TIME 29.5 seconds (23.8-35.5)
[2018-07-30 20:25] LABS: ALBUMIN/GLOBULIN RATIO 0.5 (0.8-2.0); ANION GAP 11.7 mmol/L (8-16); CALCIUM 8.8 mg/dL (8.4-10.2); CREATININE, SERUM 3.11 mg/dL (0.72-1.25); POTASSIUM 3.7 mmol/L (3.5-5.1)
--- NOTE | 2018-07-30 20:49 | Diagnostic Imaging Report ---
HUMERUS LEFT 2+VIEWS - 2 views HISTORY: Pain. Left upper extremity fracture 2 weeks ago. Broke humerus 2 weeks ago. COMPARISON: None available. FINDINGS: Bones: No acute displaced fracture. Deformity at the left humeral head and neck junction. Osseous alignment is within normal limits. Joints: The joint spaces are well-maintained. Soft tissues: The soft tissues appear unremarkable. IMPRESSION: Deformity of the left humeral head and neck junction. This is consistent with known fracture from a fall 2 weeks ago. Signed by: Dr. Frederick Goel M.D. on 07/30/2018 8:46 PM
--- NOTE | 2018-07-30 21:05 | Diagnostic Imaging Report ---
EXAMINATION: PA and lateral views of the chest. COMPARISON: None CLINICAL HISTORY: Fall 2 weeks ago with persistent left chest pain DISCUSSION: Exam quality: Limited exam as the arms overlie the lateral radiograph. Lungs: Crowding of the vasculature in the left lung. The lungs are clear. There is no evidence of pneumonia or pulmonary edema. Pleura: There is no pleural effusion or pneumothorax. Heart and mediastinum: Cardiomediastinal silhouette is unremarkable. Pulmonary vasculature is normal. Bones and soft tissues: Diffuse bony demineralization. Left proximal humerus fracture. Possible nondisplaced fracture of the lateral aspect of two left ribs; counting difficult given overlapping structures. Exaggerated thoracic kyphosis and rightward convex curvature of the spine a partially positional. IMPRESSION: Possible non-displaced left lateral rib fractures, with splinting towards the left, but without pneumothorax. Signed by: Adam Garcia MD on 07/30/2018 9:02 PM
[2018-07-30] MEDS ORDERED: ATORVASTATIN CA20 MG PO (22:11)
[2018-07-30] MEDS ORDERED: ASPIR 8181 MG PO (22:11)
[2018-07-30] MEDS ORDERED: HYDRALAZINE HCL25 MG PO (22:11)
[2018-07-30] MEDS ORDERED: VERAPAMIL PO (22:11)
[2018-07-30] MEDS ORDERED: HYDRALAZINE HCL 25 MG TAB PO ONE (22:15)
[2018-07-30] MEDS ORDERED: ASPIRIN 81 MG CHEW TAB PO ONE (23:00)
[2018-07-30 23:54] LABS: CREATINE KINASE MB 10.3 ng/mL (0-5.0)
[2018-07-31 00:09] VITALS: BP 162/77
== END 2018-07-31 00:28 | disposition home or self-care (01) ==
LOC: ER 19:49
DX: R07.89 Other chest pain (principal); S22.42XA Multiple fractures of ribs, left side, initial encounter for closed fracture; W18.30XA Fall on same level, unspecified, initial encounter; Y92.008 Other place in unspecified non-institutional (private) residence as the place of occurrence of the external cause; I10 Essential (primary) hypertension; E11.9 Type 2 diabetes mellitus without complications; N18.4 Chronic kidney disease, stage 4 (severe); I50.9 Heart failure, unspecified; E78.5 Hyperlipidemia, unspecified
CPT/HCPCS: 36415; 71046; 80053; 82550; 82553; 84484; 85025; 85610; 85730; 93005; 99284